=== PATIENT | female | born 1940 | race Caucasian/White ===

== ENCOUNTER → 2017-10-24 | Outpatient (CLI) | payer MEDICARE, BC ==
[~2017-10-24] MED LIST: ASPIRIN81 M1 PO; FOLIC ACID1 MG PO; METHOTREXATE2.5 MG PO; PREDNISONE10 MG PO; TOCILIZUMAB; VITAMIN D-32000 UNIT; Z.0.ALBUTEROL SULF8. IH; Z.0.AMITRIPTYLINE H5 PO; Z.0.DIOVAN160 MG PO; Z.0.MOBIC7.5 MG; Z.0.PREDNISONE10 MG; Z.1.METHOTREXATE2.5; [UNRECOGNIZED DRUG - OTHER]; [UNRECOGNIZED DRUG - OTHER]; [UNRECOGNIZED DRUG - OTHER] PO
--- NOTE | 2017-10-24 08:27 | Diagnostic Imaging Report ---
PROCEDURE: CT CHEST WITHOUT CONTRAST CT scan of the chest WITHOUT intravenous contrast, using standard protocol. TECHNIQUE: The chest was scanned utilizing a multidetector helical scanner from the apex to the level of the adrenal glands. No IV contrast was administered because of referring physician request. Coronal and sagittal multiplanar reformations were obtained. COMPARISON: 11/26/2016, 04/28/2015 INDICATIONS: DISORDERS OF LUNG, LUNG NODULE FINDINGS: Lines/tubes: None. Lungs and Airways: Nodules: 7 mm laterally within the right lower lobe (series 3, image 80), unchanged 4 mm groundglass posterior basal segment right lower lobe (series 3 image 82), unchanged 3 mm juxtapleural left upper lobe (series 3 image 43), unchanged 4-5 mm solid, lateral segment left lower lobe (series 3 image 71), unchanged 5-6 mm solid, posterior right lower lobe (series 3 image 72), unchanged Scattered foci of groundglass opacity in the right lung apex, juxtapleural anterior right upper lobe, and posterior right lower lobe, not significantly changed. Moderate upper lobe predominant centrilobular emphysematous changes unchanged. No new consolidations. Trachea, mainstem bronchi, and the central lobar and segmental bronchi are patent. Pleura: No pleural effusion or pneumothorax. Heart and mediastinum: The visualized portions of the thyroid gland are unremarkable. There is atherosclerotic calcification of the thoracic aorta, coronary arteries, and great vessel origins. The thoracic aorta remains ectatic along the ascending segment, measuring 4.2 cm, unchanged. Pulmonary outflow tract is of normal caliber. The great vessel origins are of normal caliber and configuration. No pericardial effusion. Soft tissues: Loop recorder lies within the subcutaneous fat of the medial left breast. Soft tissues are otherwise unremarkable. Abdomen: Visualized portions of the liver, gallbladder, pancreas, and adrenal glands are unremarkable. Calcified granuloma in the spleen. Bones: No osseous destructive lesions. Multilevel degenerative disc changes and facet arthropathy of the lower cervical and thoracic spine. IMPRESSION: Stable bilateral pulmonary nodules measuring up to 7 mm. An additional followup CT scan of the chest without contrast is suggested in one year, at which point 3 years of stability will be documented (index examination from 04/2015). 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 Dictated by: Diego Parks M.D. on 10/24/2017 at 8:37 Electronically approved by: Diego Parks M.D. on 10/24/2017 at 8:37
== END ==
LOC: CT 07:20
PROVIDERS: ATTEND Internal Medicine Pulmonary Disease
DX: J98.4 Other disorders of lung (principal)
CPT/HCPCS: 71250

== ENCOUNTER → 2018-04-25 | Outpatient (CLI) | payer MEDICARE, BC ==
--- NOTE | 2018-04-25 14:48 | Diagnostic Imaging Report ---
PROCEDURE:X-RAY LUMBAR SPINE, TWO VIEWS COMPARISON:None. INDICATIONS:LOW BACK PAIN FINDINGS: There are five lumbar-type vertebral bodies. There is mild anterolisthesis of L4 on L5. Multilevel moderate degenerative disc and facet degenerative changes, most advanced at L4-L5 and L5-S1. There is bony neural foraminal stenosis, likely mild at L5-S1. Vertebral body heights are maintained. No evidence of fracture or lytic/blastic lesions. Mild degenerative changes at the sacroiliac joints bilaterally. Atherosclerotic calcifications of the abdominal aorta. CONCLUSION: No evidence of fracture. Multilevel moderate degenerative disc and facet degenerative changes, most advanced at L4-L5 and L5-S1. Likely mild bony foraminal narrowing at L5-S1. Dictated by: KAVEH WRAY M.D. on 04/25/2018 at 14:53 Electronically approved by: KAVEH WRAY M.D. on 04/25/2018 at 14:53
--- NOTE | 2018-04-25 14:49 | Diagnostic Imaging Report ---
PROCEDURE:HIP LEFT ONE VIEW (+/- PELVIS) COMPARISON:CT Abdomen/Pelvis 04/16/16 INDICATIONS:BILATERAL HIP PAIN FINDINGS: Mild degenerative changes in the left hip with joint space narrowing and subchondral sclerosis. No evidence of fracture or malalignment. Normal mineralization. Surgical clip projects over the sacrum. CONCLUSION: Mild left hip osteoarthritis. No acute osseous abnormality. Dictated by: KAVEH WRAY M.D. on 04/25/2018 at 14:55 Electronically approved by: KAVEH WRAY M.D. on 04/25/2018 at 14:55
--- NOTE | 2018-04-25 14:52 | Diagnostic Imaging Report ---
PROCEDURE:HIP RIGHT ONE VW (+/- PELVIS) COMPARISON:CT abdomen/pelvis 04/16/16. INDICATIONS:BILATERAL HIP PAIN FINDINGS:There are moderate degenerative changes of the right hip with joint space narrowing and subchondral sclerosis. No evidence of fracture or malalignment. Gluteal enthesopathy noted over the greater trochanter. CONCLUSION: Moderate right hip osteoarthritis. No acute osseous abnormality. Dictated by: KAVEH WRAY M.D. on 04/25/2018 at 14:57 Electronically approved by: KAVEH WRAY M.D. on 04/25/2018 at 14:57
== END ==
LOC: RAD 13:00
DX: M54.5 Low back pain (principal); M25.552 Pain in left hip; M25.551 Pain in right hip
CPT/HCPCS: 72100

== ENCOUNTER → 2018-09-05 | Outpatient (CLI) | payer MEDICARE, BC ==
[~2018-09-05] MED LIST changes: +ATORVASTATIN CA20 MG PO; +CLOPIDOGREL75 MG PO; +IRBESARTAN75 MG PO; +ULTRAM50 MG PO; -Z.0.MOBIC7.5 MG; +Z.0.MOBIC7.5 MG PO
--- NOTE | 2018-09-05 16:41 | Diagnostic Imaging Report ---
EXAM: CT Chest WITH contrast COMPARISON: CT Chest with contrast 10/24/2017. TECHNIQUE: Chest was scanned utilizing a multidetector helical scanner from the lung apex through the level of the adrenal glands without administration of IV contrast. Coronal and sagittal reformations were obtained. Routine protocol was performed. IV CONTRAST: 100 mL of Omnipaque 300 RADIATION DOSE: Total DLP: 227.3 mGy*cm COMPLICATIONS: None FINDINGS: LUNGS AND AIRWAYS: Bilateral solid pulmonary nodules are again noted, unchanged from CT on 10/24/2017. These include a 7 mm right lower lobe solid pulmonary nodule on series 129, image 82, additional 4-5 mm right lower lobe nodules on images 76 and 87, and 4 mm nodule in the left lower lobe on image 81. Biapical pleural parenchymal opacity with slightly nodular appearance at the left lung apex is unchanged. There are increasing tree in bud opacities in the dependent right lower lobe on series 129, image 47. Patchy ground glass opacities in the posterior right lower lobe, right lung apex, and juxta-pleural right upper lobe are again noted. PLEURA: The pleural spaces are clear. HEART AND MEDIASTINUM: Visualized portions of the thyroid gland are unremarkable. There are extensive atherosclerotic calcifications of the thoracic aorta, great vessels, and coronary arteries. Thoracic aorta is ectatic with ascending portion measuring up to 4.2 cm, unchanged. No pericardial effusion. UPPER ABDOMEN: Limited non-contrast views of the upper abdomen show no abnormality within the partially visualized liver, pancreas, adrenals, or kidneys. Splenic granuloma is noted. BONES: No acute bony findings. Degenerative changes of the visualized spine. SOFT TISSUES: Loop recorder lies within the subcutaneous tissues of the medial left breast. IMPRESSION: Stable bilateral pulmonary nodules measuring up to [address] on 04/2015. Given stability for greater than three years, findings are consistent with benign etiology. New tree in bud opacities in the dependent right upper lobe, likely infectious or inflammatory. 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 Signed by: Dr. Cuca Mendoza MD on 09/05/2018 4:37 PM
== END ==
LOC: CT 09:59
PROVIDERS: ATTEND Internal Medicine Pulmonary Disease
DX: J98.4 Other disorders of lung (principal)
CPT/HCPCS: 71250

== ENCOUNTER → 2018-09-08 | Outpatient (CLI) | payer MEDICARE, BC ==
--- NOTE | 2018-09-08 15:18 | Diagnostic Imaging Report ---
TECHNIQUE: CT of the abdomen and pelvis WITHOUT intravenous contrast. The abdomen and pelvis were scanned utilizing a multidetector helical scanner from the diaphragm to the lesser trochanters after the oral administration of Gastrografin contrast. No IV contrast was administered per request. Coronal and sagittal reformats are available. The absence of intravenous contrast limits sensitivity of the exam. HISTORY: Enlarged lymph nodes,. Fevers. COMPARISON: CT abdomen pelvis 04/16/[address] Chest 09/05/2018. FINDINGS: LOWER THORAX: Patchy last opacities in the dependent right lower lobe, unchanged from prior chest CTs. Coronary atherosclerosis. HEPATOBILIARY: No focal hepatic lesions. No biliary ductal dilatation. The gallbladder appears unremarkable. SPLEEN: No splenomegaly. Splenic calcification is present. PANCREAS: Limited evaluation in the absence of contrast. No specific evidence of a focal masses or ductal dilatation. ADRENALS: No discrete adrenal nodule identified. KIDNEYS/URETERS: No hydronephrosis or definite solid mass lesions. Nonspecific mild bilateral perinephric stranding. Punctate 1 mm calcification in the right mid pole kidney on series 85, image 30. PELVIC ORGANS/BLADDER: The visualized pelvic organs appear unremarkable. PERITONEUM / RETROPERITONEUM: No free air or fluid. LYMPH NODES: No pathologically enlarged lymph node identified. VESSELS:There are extensive atherosclerotic vascular calcifications in the abdominal aorta and branch vessels. The common hepatic artery and splenic artery originate from the aorta. GI TRACT: No bowel dilatation or thickening. There are postoperative changes involving the distal sigmoid colon. The cecum is again noted to be low-lying in the pelvis and demonstrates moderate retained stool. Appendix is not visualized. BONES AND SOFT TISSUES: No acute bony abnormality. No suspicious lytic or blastic lesions. Severe facet degenerative changes in the lower lumbar spine. IMPRESSION: No acute findings in the abdomen or pelvis. No evidence of lymphadenopathy. Signed by: Dr. Cuca Mendoza MD on 09/08/2018 3:15 PM
== END ==
LOC: CT 12:54
PROVIDERS: ATTEND Internal Medicine Infectious Disease
DX: R59.9 Enlarged lymph nodes, unspecified (principal); M04.1 Periodic fever syndromes
CPT/HCPCS: 74176

== ENCOUNTER 2018-09-09 12:38 | Inpatient (IN) | payer MEDICARE, BC ==
[~2018-09-09] VITALS: Ht 170.2 cm; Wt 69.9 kg
[~2018-09-09 12:38] MED LIST changes: -ATORVASTATIN CA20 MG PO; -CLOPIDOGREL75 MG PO; -IRBESARTAN75 MG PO; -ULTRAM50 MG PO
--- OUTSIDE RECORDS SUMMARY | 2018-09-09 12:42 | XMS REPORT | Continuity of Care Document ---
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 [facility] STROKE Active 08/23/2017 [facility] STROKE SYMPTOMS Active 08/23/2017 [facility] FOOT AND ANKLE PAIN Active 02/03/2017 [facility] ROUTINE Active 01/25/2017 [facility] M79.652 Active 03/15/2016 [facility] 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 [facility] DEHYDRATION - DR SENT Active 11/04/2015 [facility] Final: Other Screening Mammogram 03/14/2015 03/20/2015 [facility] SCREENING Active 01/31/2015 [facility] SCREENING Active 01/31/2015 [facility] 719.44 Active 04/10/2014 [facility] ROUTINE...PT IS AWARE OF $50.00 FEE Active 02/14/2014 [facility] Arrhythmia<sup>1</sup> Resolved Problem 04/14/2018 misfire in the SA node pt states [facility] CVA (<span ID="[id number]</span>) Active Problem 04/14/2018 [facility] HTN (<span ID="[id number]">Confirmed</span>) Resolved Problem 04/14/2018 [facility] Generalized muscle weakness Active Problem 04/14/2018 [facility] RA (<span ID="[id number]">Confirmed</span>) Resolved Problem 04/14/2018 [facility] [place],[facility] Final: Other cerebrovascular disease 09/04/2017 [facility] Unspecified lump in the left breast, unspecified quadrant 04/03/2018 [facility] Muscle weakness 04/14/2018 [facility] [place] Unspecified abnormalities of gait and mobility 04/14/2018 [facility] [place] Unsteadiness on feet 04/14/2018 [facility] [place] Stiffness of unspecified joint, not elsewhere classified 04/14/2018 [facility] [place] 789.00 Active [facility] ABDMNAL PAIN UNSPCF SITE Active [facility] SCREEN MAMMOGRAM NEC Active [facility] JOINT PAIN-HAND Active [facility] ENCNTR SCREEN MAMMOGRAM FOR MALIGNANT NE Active [facility] ELEVATED ERYTHROCYTE SEDIMENTATION RATE Active [facility] PAIN IN LEFT THIGH Active [facility] CEREBRAL INFARCTION, UNSPECIFIED Active [facility] OTHER CEREBROVASCULAR DISEASE Active [facility] MASTODYNIA Active [facility] CEREBELLAR STROKE SYNDROME Active [facility] [place] MUSCLE WEAKNESS (GENERALIZED) Active [facility] [place] UNSPECIFIED SEQUELAE OF OTHER CEREBROVAS Active [facility] [place] UNSPECIFIED ABNORMALITIES OF GAIT AND MO Active [facility] [place] UNSTEADINESS ON FEET Active [facility] [place] STIFFNESS OF UNSPECIFIED JOINT, NOT ELSE Active [facility] [place] Medications Medication Details Route Status Patient Instructions Ordering Provider Order Date Source Physical Therapy See Instructions, MISC, ONCALL, Evaluate and Treat 2-3 times per week for 4-6 weeks, # 1 ea, 0 Refill(s) Active 09/01/2017 [facility] Occupational Therapy See Instructions, MISC, ONCALL, Evaluate and Treat 2-3 times per week for 2-4 weeks, # 1 unit, 0 Refill(s) Active 09/01/2017 [facility] atorvastatin 80 mg oral tablet 80 mg=1 tab, PO, Bedtime, # 30 tab, 0 Refill(s), Pharmacy: [facility] [place] [facility] Active 09/01/2017 [facility] clopidogrel 75 mg oral tablet 75 mg=1 tab, PO, Daily, # 30 tab, 0 Refill(s), Pharmacy: [facility] [place] [facility] Active 09/01/2017 [facility] Methotrexate 12.5 mg, 5 tab, Route: PO, Drug form: TAB, Q7D, Dosing Weight 69.091, kg, Start date: 08/31/17 10:00:00 [employer], Duration: 30 day, Stop date: 09/28/17 9:00:00 CSTNotes: (Same as:Methotrexate Sodium) Chemoth erapy agent/Handle with caution WASTE: F/P - Black; E - Yellow Inactive 08/31/2017 [facility] Melatonin 3 MG Extended Release Tablet 3 mg, 1 tab, Route: PO, Drug Form: TAB, Dosing Weight 69.091, kg, Bedtime, Start date: 08/27/17 21:00:00 [employer], Duration: 30 day, Stop date: 09/25/17 21:00:00 CSTNotes: (Same as: Melatonin) No Longer Active 08/28/2017 [facility] tramadol hydrochloride 50 MG Oral Tablet 50 mg, 1 tab, Route: PO, Drug form: TAB, Bedtime, Dosing Weight 69.091, kg, PRN Pain Score 4- 6, Start date: 08/27/17 9:29:00 [employer], Duration: 30 day, Stop date: 09/26/17 9:28:00 CSTNotes: Not to exceed 400mg/day. (Same As: Ultram) No Longer Active 08/27/2017 [facility] gabapentin 100 MG Oral Capsule 100 mg, 1 cap, Route: PO, Drug form: CAP, BID, Dosing Weight 69.9, kg, Start date: 08/27/17 9:00:00 [employer], Duration: 30 day, Stop date: 09/25/17 17:00:00 CSTNotes: (Same as: Neurontin) Inactive 08/27/2017 [facility] Aspirin 325 mg, 1 tab, Route: PO, Drug form: TAB, Daily, Dosing Weight 69.9, kg, Start date: 08/27/17 9:00:00 [employer], Duration: 30 day, Stop date: 09/25/17 9:00:00 CSTNotes: Take with food. No Longer Active 08/27/2017 [facility] Folic Acid 1 mg, 1 tab, Route: PO, Drug form: TAB, Daily, Dosing Weight 69.9, kg, Start date: 08/27/17 9:00:00 [employer], Duration: 30 day, Stop date: 09/25/17 9:00:00 CSTNotes: (Same as: Folvite) No Longer Active 08/27/2017 [facility] Docusate 100 mg, 1 cap, Route: PO, Drug form: CAP, BID, Dosing Weight 69.9, kg, Start date: 08/27/17 9:00:00 [employer], Duration: 30 day, Stop date: 09/25/17 17:00:00 CSTNotes: (Same as: Colace) (Do Not Crush) No Longer Active 08/27/2017 [facility] Prednisone 2 mg, 2 tab, Route: PO, Drug form: TAB, Daily, Dosing Weight 69.9, kg, Start date: 08/27/17 9:00:00 [employer], Duration: 30 day, Stop date: 09/25/17 9:00:00 CSTNotes: (Same as: Prednisone.) Take with food. No Longer Active 08/27/2017 [facility] Plavix 75 mg, 1 tab, Route: PO, Drug form: TAB, Daily, Dosing Weight 69.9, kg, Start date: 08/27/17 9:00:00 [employer], Duration: 30 day, Stop date: 09/25/17 9:00:00 CSTNotes: (Same As: Plavix) No Longer Active 08/27/2017 [facility] methotrexate 2.5 mg oral tablet 12.5 mg=5 tab, PO, Q7D, every Tuesday, 0 Refill(s) No Longer Active 08/27/2017 [facility] tramadol hydrochloride 50 MG Oral Tablet 100 mg=2 tab, PO, Bedtime, PRN Pain Score 7-10, 0 Refill(s) No Longer Active 08/27/2017 [facility] heparin 5,000 unit, 1 mL, Route: SUB-Q, Drug form: INJ, Q12H, Dosing Weight 69.9, kg, Start date: 08/26/17 21:22:00 [employer], Duration: 30 day, Stop date: 09/25/17 21:00:00 CSTNotes: porcine heparin No Longer Active 08/27/2017 [facility] valsartan 80 mg, 1 tab, Route: PO, Drug form: TAB, Q12H, Dosing Weight 69.9, kg, Start date: 08/26/17 21:19:00 [employer], Duration: 30 day, Stop date: 09/25/17 21:00:00 CSTNotes: Same as Diovan No Longer Active 08/27/2017 [facility] Amitriptyline 25 mg, 1 tab, Route: PO, Drug form: TAB, Bedtime, Dosing Weight 69.9, kg, Start date: 08/26/17 21:00:00 [employer], Duration: 30 day, Stop date: 09/24/17 21:00:00 CSTNotes: (Same as: Elavil) No Longer Active 08/27/2017 [facility] Ciprofloxacin 500 mg, 1 tab, Route: PO, Drug form: TAB, [id number], Dosing Weight 69.9, kg, Start date: 08/26/17 21:00:00 [employer], Duration: 14 day, Stop date: 09/09/17 12:00:00 [employer], ABX Indication: Other (specify in Com ments)Notes: May interfere w/enteral feedings - Take 1 hr before or 2 hrs after antacids, dairy pdt & minerals. On empty stomach. No Longer Active 08/27/2017 [facility] atorvastatin 80 mg, 2 tab, Route: PO, Drug form: TAB, Bedtime, Dosing Weight 69.9, kg, Start date: 08/26/17 21:00:00 [employer], Duration: 30 day, Stop date: 09/24/17 21:00:00 CSTNotes: (Same as: Lipitor) No Longer Active 08/27/2017 [facility] Flecainide 100 mg, 2 tab, Route: PO, Drug form: TAB, Q12H, Dosing Weight 69.9, kg, Start date: 08/26/17 21:00:00 [employer], Duration: 30 day, Stop date: 09/25/17 9:00:00 CSTNotes: (Same as: Tambocor) No Longer Active 08/27/2017 [facility] Albuterol 0.833 MG/ML / Ipratropium Speed 0.167 MG/ML Inhalant Solution 3 ml, Route: NEB, Drug Form: SOLN, Dosing Weight 69.9, kg, PRN, PRN Respiratory Protocol, Start date: 08/26/17 20:35:00 [employer], Duration: 30 day, Stop date: 09/25/17 20:34:00 CSTNotes: (Same as: Duoneb) No Longer Active 08/27/2017 [facility] Acetaminophen 650 mg, 20.3 mL, Route: PO, Drug form: LIQ, Q6H, Dosing Weight 69.9, kg, PRN Pain 1-3/Temp > 100.4 F, Start date: 08/26/17 20:35:00 [employer], Duration: 30 day, Stop date: 09/25/17 20:34:00 CSTNotes: Max qcdicsyfvtzqp=6910za/day (4 gm/day). (Same as: Tylenol) No Longer Active 08/27/2017 [facility] Trazodone 50 mg, 1 tab, Route: PO, Drug form: TAB, Bedtime, Dosing Weight 69.9, kg, PRN Insomnia, Start date: 08/26/17 18:57:00 [employer], Duration: 30 day, Stop date: 09/25/17 18:56:00 CSTNotes: (Same As: Desyrel) No Longer Active 08/27/2017 [facility] gabapentin 100 MG Oral Capsule 100 mg=1 cap, PO, BID, 0 Refill(s) No Longer Active 08/27/2017 [facility] ciprofloxacin 500 mg oral tablet 500 mg=1 tab, PO, [id number], 0 Refill(s) On Hold 08/27/2017 [facility] clopidogrel 75 mg oral tablet 75 mg=1 tab, PO, Daily, 0 Refill(s) No Longer Active 08/27/2017 [facility] atorvastatin 40 mg oral tablet 80 mg=2 tab, PO, Bedtime, 0 Refill(s) No Longer Active 08/27/2017 [facility] tramadol hydrochloride 50 MG Oral Tablet 50 mg, 1 tab, Route: PO, Drug form: TAB, Q6H, Dosing Weight 69.9, kg, PRN Pain Score 1-3, Start date: 08/26/17 15:56:00 [employer], Duration: 30 day, Stop date: 09/25/17 15:55:00 CSTNotes: Not to exceed 400mg/day. (Same As: Ultram) Inactive 08/26/2017 [facility] Ciprofloxacin 500 mg, 1 tab, Route: PO, Drug form: TAB, [id number], Dosing Weight 69.9, kg, Start date: 08/26/17 12:00:00 [employer], Duration: 3 day, Stop date: 08/29/17 0:00:00 [employer], ABX Indication: Urinary Tract InfectionNot es: May interfere w/enteral feedings - Take 1 hr before or 2 hrs after antacids, dairy pdt & minerals. On empty stomach. Inactive 08/26/2017 [facility] Amitriptyline 25 mg, 1 tab, Route: PO, Drug form: TAB, Bedtime, Dosing Weight 69.9, kg, Start date: 08/25/17 21:00:00 [employer], Duration: 30 day, Stop date: 09/23/17 21:00:00 CSTNotes: (Same as: Elavil) No Longer Active 08/26/2017 [facility] Docusate Sodium 100 MG Oral Capsule [Colace] 100 mg, 1 cap, Route: PO, Drug form: CAP, BID, Dosing Weight 69.9, kg, Start date: 08/25/17 17:00:00 [employer], Duration: 30 day, Stop date: 09/24/17 9:00:00 CSTNotes: (Same as: Colace) (Do Not Crush) No Longer Active 08/25/2017 [facility] Prednisone 2 mg, 2 tab, Route: PO, Drug form: TAB, Daily, Dosing Weight 69.9, kg, Start date: 08/25/17 9:00:00 [employer], Duration: 30 day, Stop date: 09/23/17 9:00:00 CSTNotes: (Same as: Prednisone.) Take with food. No Longer Active 08/25/2017 [facility] Folic Acid 1 mg, 1 tab, Route: PO, Drug form: TAB, Daily, Dosing Weight 69.9, kg, Start date: 08/25/17 9:00:00 [employer], Duration: 30 day, Stop date: 09/23/17 9:00:00 CSTNotes: (Same as: Folvite) No Longer Active 08/25/2017 [facility] Tambocor 100 mg, 2 tab, Route: PO, Drug form: TAB, Q12H, Dosing Weight 69.9, kg, Start date: 08/25/17 9:00:00 [employer], Duration: 30 day, Stop date: 09/23/17 21:00:00 CSTNotes: (Same as: Tambocor) No Longer Active 08/25/2017 [facility] Mannitol 70 gm, 350 mL, Route: IV, Drug form: INJ, ONCE, Dosing Weight 69.9, kg, Start date: 08/24/17 21:55:00 [employer], Stop date: 08/24/17 21:55:00 CSTNotes: (Same as: Osmitrol) Infuse through 5 micron or smaller filter WASTE: F/P - Sink; E - Municipal Trash Bin Inactive 08/25/2017 [facility] Diovan 80 mg, 1 tab, Route: PO, Drug form: TAB, Q12H, Dosing Weight 69.9, kg, Start date: 08/24/17 21:18:00 [employer], Duration: 30 day, Stop date: 09/23/17 21:00:00 CSTNotes: Same as Diovan No Longer Active 08/25/2017 [facility] Aspirin 325 mg, 1 tab, Route: PO, Drug form: TAB, Daily, Dosing Weight 69.9, kg, Start date: 08/24/17 21:11:00 [employer], Duration: 30 day, Stop date: 09/23/17 9:00:00 CSTNotes: Take with food. No Longer Active 08/25/2017 [facility] heparin 5,000 unit, 1 mL, Route: SUB-Q, Drug form: INJ, Q12H, Dosing Weight 69.9, kg, Start date: 08/24/17 21:00:00 [employer], Duration: 30 day, Stop date: 09/23/17 9:00:00 CSTNotes: porcine heparin No Longer Active 08/25/2017 [facility] Acetaminophen 650 mg, 2 tab, Route: PO, Drug form: TAB, Q6H, Dosing Weight 69.9, kg, PRN Pain 1-3/Temp > 100.4 F, Start date: 08/24/17 11:25:00 [employer], Duration: 30 day, Stop date: 09/23/17 11:24:00 CSTNotes: Do not exceed 4 gm/day. (Same as: Tylenol) No Longer Active 08/24/2017 [facility] Neurontin 100 mg, 1 cap, Route: PO, Drug form: CAP, BID, Dosing Weight 69.9, kg, Priority: NOW, Start date: 08/24/17 3:22:00 [employer], Duration: 30 day, Stop date: 09/22/17 17:00:00 CSTNotes: (Same as: Neurontin) No Longer Active 08/24/2017 [facility] Saline Flush 0.9% 10 ml, Route: IVP, Drug Form: INJ, Dosing Weight 71.004, kg, Q12H, Start date: 08/23/17 21:00:00 [employer], Duration: 30 day, Stop date: 09/22/17 20:59:00 CSTNotes: (Same as: BD Posiflush) No Longer Active 08/24/2017 [facility] atorvastatin 80 mg, 2 tab, Route: PO, Drug form: TAB, Bedtime, Dosing Weight 71.004, kg, Start date: 08/23/17 21:00:00 [employer], Duration: 30 day, Stop date: 09/22/17 20:59:00 CSTNotes: (Same as: Lipitor) No Longer Active 08/24/2017 [facility] Albuterol 0.833 MG/ML / Ipratropium Speed 0.167 MG/ML Inhalant Solution 3 ml, Route: NEB, Drug Form: SOLN, Dosing Weight 69.9, kg, PRN, PRN Respiratory Protocol, Start date: 08/23/17 19:08:00 [employer], Duration: 30 day, Stop date: 09/22/17 19:07:00 CSTNotes: (Same as: Duoneb) No Longer Active 08/24/2017 [facility] Saline Flush 0.9% 10 ml, Route: IVP, Drug Form: INJ, Dosing Weight 69.9, kg, PRN, PRN Line Flush, Start date: 08/23/17 18:23:00 [employer], Duration: 30 day, Stop date: 09/22/17 18:22:00 CSTNotes: (Same as: BD Posiflush) No Longer Active 08/24/2017 [facility] Nystatin 100 UNT/MG Topical Powder 1 appl, Route: TOP, PRN, Drug form: PWDR, PRN For Fungal Prophylaxis, Start date: 08/23/17 18:23:00 [employer], Duration: 30 day, Stop date: 09/22/17 18:22:00 CSTNotes: (Same as:Mycostatin, Nilstat) For external use only. No Longer Active 08/24/2017 [facility] Unknown Home Medication 1 puff, INHALATION, Q24H, Refill(s) 0 No Longer Active 08/23/2017 [facility] predniSONE 5 mg oral tablet 5 mg=1 tab, PO, Daily, 0 Refill(s) On Hold 08/23/2017 [facility] Rocephin 1 gm, Route: IV, [id number], Dosing Weight 69.9, kg, Start date: 08/23/17 17:00:00 [employer], Duration: 5 day, Stop date: 08/27/17 17:00:00 [employer], ABX Indication: Urinary Tract InfectionNotes: (Same As: Rocephin). Use with 100 mL NS and infuse over 30 min MEDICATION WASTE Product Size: 1000 mg Product Wasted: ___ mg No Longer Active 08/23/2017 [facility] Morphine 1 mg, 0.5 mL, Route: IV, Drug form: SOLN, Q4H, Dosing Weight 69.9, kg, PRN Pain 4-6/Temp > 100.4 F, Start date: 08/23/17 16:40:00 [employer], Duration: 30 day, Stop date: 09/22/17 16:39:00 [employer] No Longer Active 08/23/2017 [facility] Zofran 4 mg, 2 mL, Route: IVP, Drug form: INJ, Q8H, Dosing Weight 69.9, kg, PRN Nausea, Start date: 08/23/17 16:40:00 [employer], Duration: 30 day, Stop date: 09/22/17 16:39:00 CSTNotes: (Same as: Zofran) MEDICATION WASTE Product Size: 4 mg Product Wasted: ___ mg No Longer Active 08/23/2017 [facility] Anoro Ellipta 62.5 mcg-25 mcg inhalation powder 1 puff, INHALATION, Daily, 0 Refill(s) Inactive 08/23/2017 [facility] {4 (risedronate sodium 35 MG Enteric Coated Tablet) } Pack [Atelvia] 35 mg=1 tab, PO, QWed, 0 Refill(s) No Longer Active 08/23/2017 [facility] Cefixime 400 MG Oral Capsule [Suprax] 400 mg=1 cap, PO, Daily, 0 Refill(s) No Longer Active 08/23/2017 [facility] Prednisone 1 MG Oral Tablet 2 mg=2 tab, PO, Daily, 0 Refill(s) On Hold 08/23/2017 [facility] 200 ACTUAT Albuterol 0.09 MG/ACTUAT Dry Powder Inhaler 2 puff, INHALATION, Q4H, PRN as needed for shortness of breath or wheezing, 0 Refill(s) No Longer Active 08/23/2017 [facility] Albuterol 0.83 MG/ML Inhalant Solution 2.5 mg=3 mL, NEB, Q6H, PRN as needed for wheezing, 0 Refill(s) On Hold 08/23/2017 [facility] Multiple Vitamins oral tablet 1 tab, PO, Daily, 0 Refill(s) On Hold 08/23/2017 [facility] aspirin 81 mg tablet, enteric coated 81 mg=1 tab, PO, Daily, 0 Refill(s) On Hold 08/23/2017 [facility] Vitamin D3 2000 intl units oral tablet 2,000 IntlUnit=1 tab, PO, BID, 0 Refill(s) On Hold 08/23/2017 [facility] amitriptyline 25 mg oral tablet 25 mg=1 tab, PO, Bedtime, 0 Refill(s) On Hold 08/23/2017 [facility] meloxicam 7.5 MG Oral Tablet [Mobic] 7.5 mg=1 tab, PO, QPM, 0 Refill(s) On Hold 08/23/2017 [facility] Orencia 750 mg, IV, q4wk, 0 Refill(s) No Longer Active 08/23/2017 [facility] Zofran 4 mg, Route: IVP, Drug form: INJ, ONCE, Dosing Weight 71.004, kg, Start date: 08/23/17 14:20:00 [employer], Stop date: 08/23/17 14:20:00 [employer] Inactive 08/23/2017 [facility] Aspirin 81 mg, PO, Daily Inactive 08/23/2017 [facility] Orencia Inactive 08/23/2017 [facility] Sodium Chloride 0.9% IV 50 mL 50 mL, Rate: 50 ml/hr, Infuse over: 1 hr, Route: IV, Dosing Weight 71.004 kg, Total Volume: 50, Use to flush line after tPA infusion., Priority: Routine, Start date: 08/23/17 12:44:00 [employer], Duration: 1 doses or times, Stop date: 08/23/17 13:43:00 [employer],... Inactive 08/23/2017 [facility] Morphine 2 mg, Route: IVP, ONCE, Dosing Weight 71.004, kg, Start date: 08/23/17 12:38:00 [employer], Stop date: 08/23/17 12:38:00 [employer] Inactive 08/23/2017 [facility] Labetalol 5 mg, Route: IV, ONCE, Dosing Weight 71.004, kg, Start date: 08/23/17 11:47:00 [employer], Stop date: 08/23/17 11:47:00 [employer] Inactive 08/23/2017 [facility] Saline Flush 0.9% 10 ml, Route: IVP, Drug Form: INJ, Dosing Weight 71.004, kg, PRN, PRN Line Flush, Start date: 08/23/17 11:43:00 [employer], Duration: 30 day, Stop date: 09/22/17 11:42:00 CSTNotes: (Same as: BD Posiflush) No Longer Active 08/23/2017 [facility] enalapril 0.625 mg, 0.5 mL, Route: IVP, Drug form: INJ, Q6H, Dosing Weight 71.004, kg, PRN Hypertension, Start date: 08/23/17 11:43:00 [employer], Duration: 30 day, Stop date: 09/22/17 11:42:00 [employer], For SBP > 180mmHg and/or DBP > 105mmHgNotes: (Same as: Vasotec-IV) No Longer Active 08/23/2017 [facility] Labetalol 10 mg, 2 mL, Route: IVP, Drug form: INJ, Q10Min, Dosing Weight 71.004, kg, PRN Hypertension, For SBP > 180 mmHg and/or DBP > 105 mmHg, Priority: Routine, Start date: 08/23/17 11:43:00 [employer], Duration: 30 day, Stop date: 09/22/17 11:42:00 CSTNotes: (Same as: Normodyne, Trandate) Push over 2 minutes Give bolus over 2-3 minutes. No Longer Active 08/23/2017 [facility] Alteplase 6.3904 mg, Route: IV, ONCE, Dosing Weight 71.004, kg, Start date: 08/23/17 11:37:00 [employer], Stop date: 08/23/17 11:37:00 [employer] Inactive 08/23/2017 [facility] Sodium Chloride 0.9% IV 500 mL 500 mL, Rate: 50 ml/hr, Infuse over: 10 hr, Route: IV, Dosing Weight 71.004 kg, Total Volume: 500, Priority: STAT, Start date: 08/23/17 11:37:00 [employer], Stop date: 09/22/17 11:36:00 [employer], 1.85, m2 No Longer Active 08/23/2017 [facility] Sodium Chloride 0.9% IV 50 mL 50 mL, Rate: 50 ml/hr, Infuse over: 1 hr, Route: IV, Dosing Weight 71.004 kg, Total Volume: 50, Use to flush line after tPA infusion., Priority: Routine, Start date: 08/23/17 11:37:00 [employer], Duration: 30 day, Stop date: 09/22/17 11:36:00 [employer], 1.85, m2 Inactive 08/23/2017 [facility] Saline Flush 0.9% 10 mL, Route: IVP, Drug Form: INJ, Dosing Weight 71.004, kg, PRN, PRN Line Flush, Start date: 08/23/17 10:55:00 [employer], Duration: 30 day, Stop date: 09/22/17 10:54:00 CSTNotes: (Same as: BD Posiflush) Inactive 08/23/2017 [facility] Imodium A-D 2 mg, 1 cap, Route: PO, Drug form: CAP, TID, Dosing Weight 68.182, kg, PRN as needed for loose stool, Start date: 11/04/15 21:16:00, Duration: 30 day, Stop date: 12/04/15 21:15:00Notes: (Same as: Imo dium) MAX adult dose is 8 caps/day No Longer Active 11/05/2015 [facility] 24 HR tramadol hydrochloride 100 MG Extended Release Tablet 100 mg, 2 tab, Route: PO, Drug form: TAB, Q6H, PRN Pain Score 6-10, Start date: 11/04/15 20:44:00, Duration: 30 day, Stop date: 12/04/15 20:43:00Notes: Not to exceed 400mg/day. (Same As: Ultram) No Longer Active 11/05/2015 [facility] Tramadol 100 mg, PO, PRN, PRN Pain, # 20 tab, 0 Refill(s) Active 11/05/2015 [facility] Cimzia 400 mg, SUB-Q, q4wk, 0 Refill(s) Active 11/05/2015 [facility] Folic Acid 2 mg, PO, Daily, 0 Refill(s) Active 11/05/2015 [facility] meloxicam 7.5 MG Oral Tablet [Mobic] 7.5 mg=1 tab, PO, Daily, 0 Refill(s) No Longer Active 11/05/2015 [facility] Methotrexate 2.5 mg, PO, qWeek, 0 Refill(s) Active 11/05/2015 [facility] predniSONE 10 mg oral tablet 10 mg=1 tab, PO, Daily, 0 Refill(s) Active 11/05/2015 [facility] Flecainide Acetate 100 MG Oral Tablet [Tambocor] 100 mg=1 tab, PO, BID, 0 Refill(s) Active 11/05/2015 [facility] valsartan 80 MG Oral Tablet [Diovan] 80 mg=1 tab, PO, BID, 0 Refill(s) Active 11/05/2015 [facility] Tylenol 650 mg, 20.3 mL, Route: PO, Drug form: LIQ, ONCE, Dosing Weight 68.182, kg, Start date: 11/04/15 13:31:00, Stop date: 11/04/15 13:31:00Notes: Max [id number]/day (4 gm/day). (Same as: Tylenol) Inactive 11/04/2015 [facility] Saline Flush 0.9% 10 ml, Route: IVP, Drug Form: INJ, Dosing Weight 68.182, kg, PRN, PRN Line Flush, Start date: 11/04/15 13:22:00, Duration: 30 day, Stop date: 12/04/15 13:21:00Notes: (Same as: BD Posiflush) No Longer Active 11/04/2015 [facility] Sodium Chloride 0.154 MEQ/ML Injectable Solution 1,000 mL, Rate: 70 ml/hr, Infuse over: 14.3 hr, Route: IV, Dosing Weight 68.182 kg, Total Volume: 1,000, Start date: 11/04/15 13:22:00, Stop date: 12/04/15 13:21:00 No Longer Active 11/04/2015 [facility] Ondansetron 4 mg, 2 mL, Route: IVP, Drug form: INJ, Q6H, Dosing Weight 68.182, kg, PRN Nausea & Vomiting, Start date: 11/04/15 13:22:00, Duration: 30 day, Stop date: 12/04/15 13:21:00Notes: (Same as: Sixto) MEDICATION WASTE Product Size: 4 mg Product Wasted: ___ mg No Longer Active 11/04/2015 [facility] Morphine 2 mg, 1 mL, Route: IVP, Drug form: INJ, Q4H, Dosing Weight 68.182, kg, PRN Pain Score 7-10, Start date: 11/04/15 13:22:00, Duration: 30 day, Stop date: 12/04/15 13:21:00Notes: (Same as:MORPhine Sulfate) No Longer Active 11/04/2015 [facility] Acetaminophen 650 mg, 2 tab, Route: PO, Drug form: TAB, Q4H, Dosing Weight 68.182, kg, PRN Pain 1-3/Temp > 100.4 F, Start date: 11/04/15 13:22:00, Duration: 30 day, Stop date: 12/04/15 13:21:00Notes: Do not exceed 4 gm/day. (Same as: Tylenol) No Longer Active 11/04/2015 [facility] Sodium Chloride 0.154 MEQ/ML Injectable Solution 2,000 mL, 1,000 ml/hr, Infuse Over: 1 hr, Route: IV, ONCE, Priority: STAT, Dosing Weight 68.182 kg, Start date: 11/04/15 12:10:00, Duration: 1 doses or times, Stop date: 11/04/15 12:10:00 Inactive 11/04/2015 [facility] Sodium Chloride 0.154 MEQ/ML Injectable Solution 1,000 mL, 1,000 ml/hr, Infuse Over: 1 hr, Route: IV, ONCE, Priority: STAT, Dosing Weight 68.182 kg, Start date: 11/04/15 10:55:00, Duration: 1 doses or times, Stop date: 11/04/15 10:55:00 Inactive 11/04/2015 [facility] Ondansetron 4 mg, Route: IVP, Drug form: INJ, ONCE, Dosing Weight 68.182, kg, Priority: STAT, Start date: 11/04/15 10:55:00, Stop date: 11/04/15 10:55:00 Inactive 11/04/2015 [facility] Allergies, Adverse Reactions, Alerts Substance Category Reaction Severity Reaction type Status Date Reported Comments Source codeine Assertion Drug allergy Active [facility] [place] iodine Assertion Drug allergy Active [facility] [place] Immunizations Immunization Date Given Site Status Last Updated Comments Source Results Order Name Results Value Reference Range Date Interpretation Comments Source Chest 2 views DX Chest 2 views DX EXAM: XR CHEST 2 VIEWS DATE: 08/30/2018 11:20 AM [employer] INDICATION: - J20.8 Acute bronchitis due to other specified organisms COMPARISON: 08/23/2017 TECHNIQUE: PA and lateral chest radiographs FINDINGS: Mild parenchymal scarring is again seen. The lungs are otherwise clear without focal consolidation or pleural effusion. The cardiomediastinal silhouette is normal. There is no acute bony abnormality. IMPRESSION: No acute abnormality 08/30/2018 - - Read by: Sienna Weston Dictated Date/time: 08/30/18 11:41 Electronically Signed by: Sienna Weston 08/30/18 11:42 FINAL REPORT [facility] [place] [facility] MATTHEW w heena incl CAD MS Breast Mammo Scrn MATTHEW w heena incl CAD MA BILATERAL DIGITAL SCREENING MAMMOGRAM 3D/2D WITH CAD: 05/02/2018 CLINICAL: /Routine. Current study was evaluated with a Computer Aided Detection (CAD) system. COMPARISON:Comparison is made to exams dated: 12/26/2017 mammogram, 04/15/2017 mammogram, 03/09/2016 mammogram, 03/07/2015 mammogram, 03/05/2014 mammogram, and 03/02/2013 mammogram - [facility]. TECHNIQUE: Digital Breast Tomosynthesis was performed and utilized for Interpretation. [employer] Version 1.3 was utilized for computer aided detection. FINDINGS: There are scattered fibroglandular densities in both breasts. Benign appearing densities are noted in both breasts. Left cardiac device/pacemaker is unchanged. There are benign calcifications in both breasts. No significant masses, calcifications, or other findings are seen in either breast. There has been no significant interval change. IMPRESSION: BENIGN RECOMMENDATION:There is no mammographic evidence of malignancy. A 1 year screening mammogram is recommended.(05/03/2019) This exam was interpreted at [id number] for [facility]. Maggie hurtado/penrad:05/02/2018 09:03:10 Business Initiatives Manager(s): Kiarra Blackwood, [facility] letter sent: BI-RADS 1/2 Mammogram BI-RADS: 2 Benign 05/02/2018 - - Read by: Maggie Simons MD Dictated Date/time: 05/02/18 09:03 Electronically Signed by: Maggie Simons MD 05/02/18 09:03 FINAL REPORT [facility] Breast Complete Uni US Breast Complete Uni US COMPLETE ULTRASOUND OF LEFT BREAST AND AXILLA: 12/26/2017 CLINICAL: /Lump. COMPARISON:Comparison is made to exams dated: 12/26/2017 mammogram, 04/15/2017 mammogram, 03/09/2016 mammogram, 03/07/2015 mammogram, 03/05/2014 mammogram, and 03/02/2013 mammogram - [facility]. TECHNIQUE: Color flow and real-time ultrasound of the left breast four quadrants and axilla regions were performed. Schumacher scale images of the real-time examination were reviewed. All 4 quadrants, the retroareolar region and axilla are evaluated in this exam. FINDINGS: There is a cardiac device left breast at 9 o'clock that correlates with mammography and palpable abnormality. No abnormalities were seen sonographically in the left axilla. IMPRESSION: BENIGN There is no sonographic evidence of malignancy. Return to annual mammogram screening schedule is recommended.(04/15/2018) The results were reviewed with the patient. This exam was interpreted at [id number] for [facility]. Maggie hurtado/:12/26/2017 16:06:09 Business Initiatives Manager(s): Esther Ayala [facility] letter sent: BI-RADS 1/2 Ultrasound BI-RADS: 2 Benign 12/26/2017 - - Read by: Maggie Simons MD Dictated Date/time: 12/26/17 16:06 Electronically Signed by: Maggie Simons MD 12/26/17 16:06 FINAL REPORT [facility] Breast Mammo Diag UNI incl CAD MA Breast Mammo Diag UNI incl CAD MA UNILATERAL LEFT DIGITAL DIAGNOSTIC MAMMOGRAM WITH CAD: 12/26/2017 CLINICAL: /Left Breast Lump. Current study was evaluated with a Computer Aided Detection (CAD) system. COMPARISON:Comparison is made to exams dated: 04/15/2017 mammogram, 03/09/2016 mammogram, 03/07/2015 mammogram, 03/05/2014 mammogram, 03/02/2013 mammogram, and 02/29/2012 mammogram - [facility]. TECHNIQUE: Mammographic views were obtained using digital acquisition. [employer] Version 1.3 was utilized for computer aided detection. FINDINGS: There are scattered fibroglandular densities in left breast. There are benign appearing calcifications and densities in the left breast. There also is a new pacemaker in the left breast at 9 o'clock that likely correlates with palpable abnormality. No significant masses, calcifications, or other findings are seen in the breast. IMPRESSION: INCOMPLETE: NEEDS ADDITIONAL IMAGING EVALUATION Palpable area of concern in the medial left breast appears to correspond with the new cardiac device. Ultrasound evaluation is pending. The results were reviewed with the patient. SUMMARY: Ultrasound will be performed at this time; please see dedicated separate report. This exam was interpreted at [id number] for [facility]. Maggie Simons M.D. jt/:12/26/2017 16:04:52 Business Initiatives Manager(s): Mary Ann Jeronimo, [facility] Mammogram BI-RADS: 0 Indeterminate 12/26/2017 - - Read by: Maggie Simons MD Dictated Date/time: 12/26/17 16:04 Electronically Signed by: Maggie Simons MD 12/26/17 16:04 FINAL REPORT [facility] CHEM PANEL Phosphorus 2.8 mg/dL 2.5 - 4.5 08/27/2017 [facility] CHEM PANEL Magnesium Lvl 2.1 mg/dL 1.8 - 2.4 08/27/2017 [facility] CHEM PANEL Vitamin D, 25-OH, Total 55.3 ng/mL 30.0 - 100.0 08/27/2017 [facility] ELECTROLYTES AGAP 11.5 meq/L 10.0 - 20.0 08/27/2017 [facility] ELECTROLYTES eGFR 54 mL/min/1.73m2 08/27/2017 Result Comment: The eGFR is calculated using the CKD-EPI formula. In most young, healthy individuals the eGFR will be >90 mL/min/1.73m2. The eGFR declines with age. An eGFR of 60-89 may be normal in some populations, particularly the elderly, for whom the CKD-EPI formula has not been extensively validated. Use of the eGFR is not recommended in the following populations: Individuals with unstable creatinine concentrations, including patients and those with serious co-morbid conditions. Patients with extremes in muscle mass or diet. The data above are obtained from the National Kidney Disease Education Program (NKDEP) which additionally recommends that when the eGFR is used in patients with extremes of body mass index for purposes of drug dosing, the eGFR should be multiplied by the estimated BMI. [facility] ELECTROLYTES Sodium Lvl 139 meq/L 135 - 145 08/27/2017 [facility] ELECTROLYTES Potassium Lvl 3.5 meq/L 3.5 - 5.1 08/27/2017 [facility] ELECTROLYTES CO2 24 meq/L 24 - 32 08/27/2017 [facility] ELECTROLYTES Chloride Lvl 107 meq/L 95 - 109 08/27/2017 [facility] ELECTROLYTES Calcium Lvl 8.8 mg/dL 8.5 - 10.5 08/27/2017 [facility] ELECTROLYTES Creatinine Lvl 1.02 mg/dL 0.50 - 1.40 08/27/2017 [facility] ELECTROLYTES BUN 19 mg/dL 7 - 22 08/27/2017 [facility] ELECTROLYTES Glucose Lvl 92 mg/dL 70 - 99 08/27/2017 [facility] HEMATOLOGY Basophils # 0.1 K/CMM 0.0 - 0.2 08/27/2017 [facility] HEMATOLOGY Eosinophils # 1.3 K/CMM 0.0 - 0.5 08/27/2017 [facility] HEMATOLOGY Monocytes 11.3 % 2.0 - 12.0 08/27/2017 [facility] HEMATOLOGY Eosinophils 9.0 % 0.0 - 4.0 08/27/2017 [facility] HEMATOLOGY Segs-Bands # 8.2 K/CMM 1.5 - 8.1 08/27/2017 [facility] HEMATOLOGY Lymphocytes # 3.6 K/CMM 1.0 - 5.5 08/27/2017 [facility] HEMATOLOGY Monocytes # 1.7 K/CMM 0.0 - 0.8 08/27/2017 [facility] HEMATOLOGY Basophils 0.4 % 0.0 - 1.0 08/27/2017 [facility] HEMATOLOGY Segs 55.2 % 45.0 - 75.0 08/27/2017 [facility] HEMATOLOGY Lymphocytes 24.1 % 20.0 - 40.0 08/27/2017 [facility] HEMATOLOGY PTT 28.7 s 22.9 - 35.8 08/27/2017 [facility] HEMATOLOGY PT 13.4 s 12.0 - 14.7 08/27/2017 [facility] INR 1.02 0.85 - 1.17 08/27/2017 [facility] Platelet 353 K/CMM 133 - 450 08/27/2017 [facility] MPV 7.9 fL 7.4 - 10.4 08/27/2017 [facility] RDW 13.7 % 11.5 - 14.5 08/27/2017 [facility] [place] MCH 31.0 pg 27.0 - 31.0 08/27/2017 [facility] [place] MCHC 33.4 g/dL 32.0 - 36.0 08/27/2017 [facility] [place] Hct 42.4 % 36.0 - 48.0 08/27/2017 [facility] [place] MCV 93.0 fL 80.0 - 98.0 08/27/2017 [facility] [place] RBC 4.56 M/CMM 4.20 - 5.40 08/27/2017 [facility] [place] Hgb 14.2 g/dL 12.0 - 16.0 08/27/2017 [facility] [place] WBC 14.9 K/CMM 3.7 - 10.4 08/27/2017 [facility] Brain Stroke wo contrast CT Brain Stroke wo contrast CT Patient Name: CONY CARDENAS : 1940; Age: 77 years y/o Female MR: [id number] Study: BRAIN STROKE WO CONTRAST CT 08/24/2017 1:55 AM [employer] Ordering Physician: Smitha Marshall MD Clinical Indication: ct dlp: 981.69 mGy-cm - Pt has been previously TPA; Comparison: CT and MR exams of the brain performed yesterday TECHNIQUE: CT images were obtained from the foramen magnum to the vertex without the use of intravenous contrast on a multidetector CT. Coronal and sagittal reconstructions were obtained. CT radiation dose DLP: 981.69 mGy FINDINGS: BRAIN PARENCHYMA: Correlation is made with the CT and MR exams performed within the past 24 hours demonstrating normal evolutionary change of an acute right frontal parietal MCA territory nonhemorrhagic ischemic infarct better seen on the MR and not resulting in apparent hemorrhage following TPA thrombolysis. No complications are identified. There is mild generalized atrophy and otherwise unremarkable MR of the brain. VENTRICLES: CSF spaces are mildly atrophic. The lateral ventricles, third and fourth ventricles appear unremarkable. The basilar cisterns are normal. ORBITS, MASTOIDS AND PARANASAL SINUSES: The visualized orbits are unremarkable. The paranasal sinuses are unremarkable. The mastoid air cells are clear. SKULL: There are no osseous abnormalities. IMPRESSION: Normally evolving acute to subacute nonhemorrhagic ischemic infarct involving distal branches of the right MCA in the right parietal lobe. No complications are seen. Mild atrophy. Verbal Report Provided by telephone to nurse Carey at 3:00 AM SL: [id number] 08/24/2017 - - Read by: Chuck Mccracken MD Dictated Date/time: 08/24/17 02:55 Electronically Signed by: Chuck Mccracken MD 08/24/17 03:05 FINAL REPORT [facility] BACTERIAL - SEROLOGY MRSA by PCR Negative (08/23/17 6:29 PM) 08/24/2017 [facility] LIPIDS VLDL 29 08/23/2017 [facility] LIPIDS LDL (Calculated) 102 mg/dL <=99 mg/dL 08/23/2017 [facility] LIPIDS CHD Risk 2.32 3.90 - 5.80 08/23/2017 [facility] LIPIDS Trig 145 mg/dL <=149 mg/dL 08/23/2017 [facility] LIPIDS HDL 99 mg/dL >=61 mg/dL 08/23/2017 [facility] LIPIDS Chol 230 mg/dL <=199 mg/dL 08/23/2017 [facility] SPECIAL CHEMISTRY Hgb A1C 5.8 % <=5.6 % 08/23/2017 [facility] Brain wo contrast MRA Brain wo contrast MRA MULTIPLE STUDIES HISTORY: - left sided weakness; COMPARISON: CT brain dated 08/23/2017 MRI BRAIN WITHOUT IV CONTRAST TECHNIQUE: Multiplanar noncontrast-enhanced MRI of the brain is performed on a 1.5 Jackelin magnet. Moderate sized area of multifocal acute/subacute cortical infarcts involving the right frontal lobe and to a lesser extent the right temporal and right parietal lobes. The involved area of infarct measures on the order of 4 x 6 cm in axial cross section and 4 cm craniocaudad. Findings compatible with right MCA territory ischemic infarct. No hemorrhage, hydrocephalus, extra-axial fluid collection, or mass lesion is seen. T2 vascular flow voids are preserved. Small mucous retention cyst noted in the left maxillary sinus. MRA BRAIN TECHNIQUE: Magnetic resonance angiography of the [place] was performed without contrast. 3D reconstructed images were created. The petrous, cavernous, and supraclinoid portions of the internal carotid arteries are normal in contour and caliber. The anterior, middle, and posterior cerebral arteries are normal in shape. The basilar artery is intact. There is no stenosis or branch occlusion. No aneurysm is identified. MRA NECK TECHNIQUE: Magnetic resonance angiography of the neck was performed without gadolinium contrast with time of flight technique. 3-D maximum intensity projection images were obtained. Any reported ICA stenoses directly reference the distal internal carotid diameter as the denominator for stenosis measurement. (NASCET criteria) There is normal size and shape of the common carotid arteries. The carotid bifurcations are normal. There is no carotid stenosis. The vertebral arteries are normal. IMPRESSION: 1. Moderate acute/subacute right MCA territory ischemic infarct. No hemorrhage. 2. Normal [place]. No intracranial aneurysm or branch occlusion. 3. Normal carotid bifurcations. SL: JONES-JOVAN 08/23/2017 - - Read by: Johann Dejesus MD Dictated Date/time: 08/23/17 22:30 Electronically Signed by: Johann Dejesus MD 08/23/17 22:39 FINAL REPORT [facility] Brain wo contrast MRI Brain wo contrast MRI MULTIPLE STUDIES HISTORY: - left sided weakness; COMPARISON: CT brain dated 08/23/2017 MRI BRAIN WITHOUT IV CONTRAST TECHNIQUE: Multiplanar noncontrast-enhanced MRI of the brain is performed on a 1.5 [place]elin magnet. Moderate sized area of multifocal acute/subacute cortical infarcts involving the right frontal lobe and to a lesser extent the right temporal and right parietal lobes. The involved area of infarct measures on the order of 4 x 6 cm in axial cross section and 4 cm craniocaudad. Findings compatible with right MCA territory ischemic infarct. No hemorrhage, hydrocephalus, extra-axial fluid collection, or mass lesion is seen. T2 vascular flow voids are preserved. Small mucous retention cyst noted in the left maxillary sinus. MRA BRAIN TECHNIQUE: Magnetic resonance angiography of the [place] was performed without contrast. 3D reconstructed images were created. The petrous, cavernous, and supraclinoid portions of the internal carotid arteries are normal in contour and caliber. The anterior, middle, and posterior cerebral arteries are normal in shape. The basilar artery is intact. There is no stenosis or branch occlusion. No aneurysm is identified. MRA NECK TECHNIQUE: Magnetic resonance angiography of the neck was performed without gadolinium contrast with time of flight technique. 3-D maximum intensity projection images were obtained. Any reported ICA stenoses directly reference the distal internal carotid diameter as the denominator for stenosis measurement. (NASCET criteria) There is normal size and shape of the common carotid arteries. The carotid bifurcations are normal. There is no carotid stenosis. The vertebral arteries are normal. IMPRESSION: 1. Moderate acute/subacute right MCA territory ischemic infarct. No hemorrhage. 2. Normal [place]. No intracranial aneurysm or branch occlusion. 3. Normal carotid bifurcations. SL: ANUJA 08/23/2017 - - Read by: Johann Dejesus MD Dictated Date/time: 08/23/17 22:30 Electronically Signed by: Johann Dejesus MD 08/23/17 22:39 FINAL REPORT [facility] Neck wo contrast MRA Neck wo contrast MRA MULTIPLE STUDIES HISTORY: - left sided weakness; COMPARISON: CT brain dated 08/23/2017 MRI BRAIN WITHOUT IV CONTRAST TECHNIQUE: Multiplanar noncontrast-enhanced MRI of the brain is performed on a 1.5 [place] magnet. Moderate sized area of multifocal acute/subacute cortical infarcts involving the right frontal lobe and to a lesser extent the right temporal and right parietal lobes. The involved area of infarct measures on the order of 4 x 6 cm in axial cross section and 4 cm craniocaudad. Findings compatible with right MCA territory ischemic infarct. No hemorrhage, hydrocephalus, extra-axial fluid collection, or mass lesion is seen. T2 vascular flow voids are preserved. Small mucous retention cyst noted in the left maxillary sinus. MRA BRAIN TECHNIQUE: Magnetic resonance angiography of the [place] was performed without contrast. 3D reconstructed images were created. The petrous, cavernous, and supraclinoid portions of the internal carotid arteries are normal in contour and caliber. The anterior, middle, and posterior cerebral arteries are normal in shape. The basilar artery is intact. There is no stenosis or branch occlusion. No aneurysm is identified. MRA NECK TECHNIQUE: Magnetic resonance angiography of the neck was performed without gadolinium contrast with time of flight technique. 3-D maximum intensity projection images were obtained. Any reported ICA stenoses directly reference the distal internal carotid diameter as the denominator for stenosis measurement. (NASCET criteria) There is normal size and shape of the common carotid arteries. The carotid bifurcations are normal. There is no carotid stenosis. The vertebral arteries are normal. IMPRESSION: 1. Moderate acute/subacute right MCA territory ischemic infarct. No hemorrhage. 2. Normal [place]. No intracranial aneurysm or branch occlusion. 3. Normal carotid bifurcations. SL: ANUJA 08/23/2017 - - Read by: Johann Dejesus MD Dictated Date/time: 08/23/17 22:30 Electronically Signed by: Johann Dejesus MD 08/23/17 22:39 FINAL REPORT [facility] BLOOD BANK RESULTS Antibody Scrn Negative (08/23/17 10:59 AM) 08/23/2017 [facility] BLOOD BANK RESULTS ABO/Rh A POS 08/23/2017 [facility] URINE AND STOOL UA Urobilinogen <=1.0 mg/dL 0.1 - 1.0 08/23/2017 [facility] URINE AND STOOL UA Nitrite Positive *ABN* (08/23/17 10:59 AM) Negative 08/23/2017 [facility] URINE AND STOOL UA Blood Small *ABN* (08/23/17 10:59 AM) Negative 08/23/2017 [facility] URINE AND STOOL UA WBC 13 /HPF 0 - 5 08/23/2017 [facility] URINE AND STOOL UA Sq Epi Occasional /LPF Few /LPF 08/23/2017 [facility] URINE AND STOOL UA Leuk Est Moderate *ABN* (08/23/17 10:59 AM) Negative 08/23/2017 [facility] URINE AND STOOL UA Bacteria Occasional /HPF None Seen /HPF 08/23/2017 [facility] URINE AND STOOL UA RBC 5 /HPF 0 - 2 08/23/2017 [facility] URINE AND STOOL UA Spec Grav 1.016 <=1.030 08/23/2017 [facility] URINE AND STOOL UA Turbidity Clear (08/23/17 10:59 AM) Clear 08/23/2017 [facility] URINE AND STOOL UA Color Yellow *NA* (08/23/17 10:59 AM) Yellow 08/23/2017 [facility] URINE AND STOOL UA pH 6.0 5.0 - 8.0 08/23/2017 [facility] URINE AND STOOL UA Bili Negative *NA* (08/23/17 10:59 AM) Negative 08/23/2017 [facility] URINE AND STOOL UA Ketones Negative mg/dL Negative mg/dL 08/23/2017 [facility] URINE AND STOOL UA Glucose Negative mg/dL Negative mg/dL 08/23/2017 [facility] URINE AND STOOL UA Protein Negative mg/dL Negative mg/dL 08/23/2017 [facility] CARDIAC ENZYMES CK MB Index 2.5 0.0 - 2.5 08/23/2017 [facility] CARDIAC ENZYMES Troponin-I null 0.00 - 0.40 08/23/2017 [facility] CARDIAC ENZYMES Total CK 122 unit/L 12 - 191 08/23/2017 [facility] CARDIAC ENZYMES CK MB 3.1 ng/mL 0.5 - 3.6 08/23/2017 [facility] CHEM PANEL eGFR 39 mL/min/1.73m2 08/23/2017 Result Comment: The eGFR is calculated using the CKD-EPI formula. In most young, healthy individuals the eGFR will be >90 mL/min/1.73m2. The eGFR declines with age. An eGFR of 60-89 may be normal in some populations, particularly the elderly, for whom the CKD-EPI formula has not been extensively validated. Use of the eGFR is not recommended in the following populations: Individuals with unstable creatinine concentrations, including patients and those with serious co-morbid conditions. Patients with extremes in muscle mass or diet. The data above are obtained from the National Kidney Disease Education Program (NKDEP) which additionally recommends that when the eGFR is used in patients with extremes of body mass index for purposes of drug dosing, the eGFR should be multiplied by the estimated BMI. [facility] CHEM PANEL B/C Ratio 12 6 - 25 08/23/2017 [facility] CHEM PANEL Globulin 3.5 g/dL 2.7 - 4.2 08/23/2017 [facility] CHEM PANEL AGAP 14.1 meq/L 10.0 - 20.0 08/23/2017 [facility] CHEM PANEL Bili Total 0.5 mg/dL 0.2 - 1.3 08/23/2017 [facility] CHEM PANEL Alk Phos 70 unit/L 39 - 136 08/23/2017 [facility] CHEM PANEL A/G Ratio 1.2 0.7 - 1.6 08/23/2017 [facility] CHEM PANEL Creatinine Lvl 1.32 mg/dL 0.50 - 1.40 08/23/2017 [facility] CHEM PANEL BUN 16 mg/dL 7 - 22 08/23/2017 [facility] CHEM PANEL Glucose Lvl 115 mg/dL 70 - 99 08/23/2017 [facility] CHEM PANEL Calcium Lvl 9.4 mg/dL 8.5 - 10.5 08/23/2017 [facility] CHEM PANEL CO2 26 meq/L 24 - 32 08/23/2017 [facility] CHEM PANEL Albumin Lvl 4.1 g/dL 3.5 - 5.0 08/23/2017 [facility] CHEM PANEL Total Protein 7.6 g/dL 6.4 - 8.4 08/23/2017 [facility] CHEM PANEL Chloride Lvl 104 meq/L 95 - 109 08/23/2017 [facility] CHEM PANEL Potassium Lvl 4.1 meq/L 3.5 - 5.1 08/23/2017 [facility] CHEM PANEL Sodium Lvl 140 meq/L 135 - 145 08/23/2017 [facility] CHEM PANEL ALT 18 unit/L 0 - 65 08/23/2017 [facility] CHEM PANEL AST 18 unit/L 0 - 37 08/23/2017 [facility] HEMATOLOGY Basophils # 0.1 K/CMM 0.0 - 0.2 08/23/2017 [facility] HEMATOLOGY Basophils 0.4 % 0.0 - 1.0 08/23/2017 [facility] HEMATOLOGY Eosinophils 1.6 % 0.0 - 4.0 08/23/2017 [facility] HEMATOLOGY Eosinophils # 0.2 K/CMM 0.0 - 0.5 08/23/2017 [facility] HEMATOLOGY Monocytes # 0.7 K/CMM 0.0 - 0.8 08/23/2017 [facility] HEMATOLOGY Lymphocytes # 2.0 K/CMM 1.0 - 5.5 08/23/2017 [facility] HEMATOLOGY Segs-Bands # 10.2 K/CMM 1.5 - 8.1 08/23/2017 [facility] HEMATOLOGY Lymphocytes 15.2 % 20.0 - 40.0 08/23/2017 [facility] HEMATOLOGY Monocytes 5.4 % 2.0 - 12.0 08/23/2017 [facility] HEMATOLOGY Segs 77.4 % 45.0 - 75.0 08/23/2017 [facility] HEMATOLOGY Platelet 441 K/CMM 133 - 450 08/23/2017 [facility] HEMATOLOGY RDW 13.8 % 11.5 - 14.5 08/23/2017 [facility] HEMATOLOGY MCHC 33.1 g/dL 32.0 - 36.0 08/23/2017 [facility] HEMATOLOGY MPV 7.3 fL 7.4 - 10.4 08/23/2017 [facility] MCH 31.0 pg 27.0 - 31.0 08/23/2017 [facility] HEMATOLOGY MCV 93.7 fL 80.0 - 98.0 08/23/2017 [facility] HEMATOLOGY Hgb 15.5 g/dL 12.0 - 16.0 08/23/2017 [facility] HEMATOLOGY WBC 13.2 K/CMM 3.7 - 10.4 08/23/2017 [facility] HEMATOLOGY Hct 46.8 % 36.0 - 48.0 08/23/2017 [facility] [place] RBC 4.99 M/CMM 4.20 - 5.40 08/23/2017 [facility] HEMATOLOGY PTT 25.6 s 22.9 - 35.8 08/23/2017 [facility] HEMATOLOGY INR 1.02 0.85 - 1.17 08/23/2017 [facility] HEMATOLOGY PT 13.4 s 12.0 - 14.7 08/23/2017 [facility] Chest 1view DX Chest 1view DX Patient Name: CONY CARDENAS : 1940; Age: 77 years y/o Female MR: [id number] Study: Chest 1view DX 08/23/2017 10:55 AM [employer] Ordering Physician: Clinical Indication: - stroke; Comparison: 11/04/2015 1 view chest Lungs are clear. Heart size normal. No evidence for congestive heart failure or pulmonary edema. No pleural effusion or pneumothorax. Chronic degenerative changes within the cervical spine. IMPRESSION: No acute finding. SL: [id number] 08/23/2017 - - Read by: Jose Baxter MD Dictated Date/time: 08/23/17 11:20 Electronically Signed by: Jose Baxter MD 08/23/17 11:20 FINAL REPORT [facility] Brain Stroke wo contrast CT Brain Stroke wo contrast CT Patient Name: CONY CARDENAS : 1940; Age: 77 years y/o Female MR: [id number] Study: Brain Stroke wo contrast CT 08/23/2017 10:55 AM [employer] Clinical Indication: dlp: 1472.28; CJ - Stroke; @1000 began to have HUNT and Dizziness, paralysis to left side, slurred speech and left side facial droop. Hx RA and HTN. BS 108 on scene. AAox4 @ this time. took 1 baby aspirin today; Comparison: MRI brain dated 10/11/2006. TECHNIQUE: CT images were obtained from the foramen magnum to the vertex without the use of intravenous contrast on a multidetector CT. Coronal and sagittal reconstructions were obtained. FINDINGS: BRAIN PARENCHYMA: Left vertebral and bilateral carotid artery calcification. There are normal schumacher-white interfaces. No evidence for subarachnoid, intraparenchymal or intraventricular hemorrhage. No significant extra-axial fluid collection, mass effect or shift. No evidence for an acute infarction. No mass lesions identified about the brain. VENTRICLES: The ventricles and sulci are enlarged for the patient's age but not out of proportion to each other. Findings are consistent with changes of mild cerebral atrophy. ORBITS, MASTOIDS AND PARANASAL SINUSES: Small mucous retention cyst versus polyp posterior left maxillary sinus. SKULL: There are no osseous abnormalities. If there is further concern for intracranial pathology or acute stroke, MRI of the brain may be performed for complete assessment. IMPRESSION: 1. Intracranial vascular calcification as above. 2. Mild cerebral atrophy. 3. Small mucous retention cyst versus polyp posterior left maxillary sinus. 4. Findings reviewed with Dr. Viera on 08/23/2017 at 1124 hours. SL: [id number] 08/23/2017 - - Read by: Ravinder Conde MD Dictated Date/time: 08/23/17 11:17 Electronically Signed by: Ravinder Conde MD 08/23/17 11:26 FINAL REPORT [facility] Breast Mammo Scrn MATTHEW w heena incl CAD MS Breast Mammo Scrn MATTHEW w heena incl CAD MA - BREAST MAMMO SCRN MATTHEW W HEENA INCL CAD MA BILATERAL DIGITAL SCREENING MAMMOGRAM 3D/2D WITH CAD: 04/15/2017 CLINICAL: Routine/Screen. 2D digital mammographic images and 3D digital tomosynthesis images were obtained in the CC and MLO projections. Current study was evaluated with a Computer Aided Detection (CAD) system. Comparison is made to exams dated: 03/09/2016 mammogram, 03/07/2015 mammogram, 03/05/2014 mammogram, 03/02/2013 mammogram, 02/29/2012 mammogram and 02/16/2011 mammogram - [facility]. There are scattered fibroglandular densities in both breasts. There are benign appearing calcifications in both breasts. There also are benign appearing densities in both breasts. No significant masses, calcifications, or other findings are seen in either breast. There has been no significant interval change. IMPRESSION: BENIGN There is no mammographic evidence of malignancy. A 1 year screening mammogram is recommended. Maggie hurtado/penrad:04/15/2017 14:45:37 Business Initiatives Manager: Stephie Fonseca, [facility] This exam was dictated and interpreted by [id number] for [facility]. letter sent: Normal exam Mammogram BI-RADS: 2 Benign 04/15/2017 - - Read by: Maggie Simons MD Dictated Date/time: 04/15/17 14:45 Electronically Signed by: Maggie Simons MD 04/15/17 14:45 FINAL REPORT [facility] Ankle 3 views DX Ankle 3 views DX Ankle 3 views DX CLINICAL HISTORY: M85.80 Other specified disorders of bone density and structure, unspecified site,M79.7 Fibromyalgia,R70.0 Elevated erythrocyte sedimentation rate FINDINGS/IMPRESSION: 3 views of the left ankle are submitted for review. Small well-corticated calcific density is noted along the inferior margin of medial malleolus. Findings may reflect changes from previous trauma or accessory ossicle. No acute bony fractures are visualized. There is mild soft tissue swelling medially and laterally. No radiopaque foreign body is visualized. Joint spaces are well maintained without any significant degenerative change. Mild generalized osteopenia. SL: [id number] 02/03/2017 - - Read by: Serge Chavez MD Dictated Date/time: 02/03/17 16:44 Electronically Signed by: Serge Chavez MD 02/03/17 16:45 FINAL REPORT [facility] Foot series DX Foot series DX Foot series DX CLINICAL HISTORY: M79.7 Fibromyalgia, R70.0 Elevated erythrocyte sedimentation rate,Z79.52 snf (current) use of systemic steroids FINDINGS/IMPRESSION: 3 views of the left foot are submitted for review. There is no evidence for fracture or subluxation. Mild dorsal soft tissue swelling. No radiopaque foreign body is visualized. Mild generalized osteopenia. SL: [id number] 02/03/2017 - - Read by: Serge Chavez MD Dictated Date/time: 02/03/17 16:46 Electronically Signed by: Serge Chavez MD 02/03/17 16:47 FINAL REPORT [facility] Ext Lower Venous Doppler Unilat US Ext Lower Venous Doppler Unilat US Clinical Indication: M79.652 Pain in left thigh; Comparison: None Left lower extremity venous Doppler ultrasound exam demonstrates normal flow and compressibility of the common femoral, superficial femoral and tibial venous segments. Normal distal augmentation. IMPRESSION: No evidence for deep vein thrombosis in the left lower extremity. SL: [id number] 03/17/2016 - - Read by: Jose Baxter MD Dictated Date/time: 03/17/16 16:29 Electronically Signed by: Jose Baxter MD 03/17/16 16:29 FINAL REPORT [facility] Femur series DX Femur series DX Femur series DX CLINICAL HISTORY: M79.652 Pain in left thigh FINDINGS/IMPRESSION: AP and lateral views of the left femur reveal no evidence for fracture or dislocation. Visualized bones demonstrate normal radiodensity. No significant degenerative change is present. Surrounding soft tissues are unremarkable. SL: [id number] 03/17/2016 - - Read by: Jose Baxter MD Dictated Date/time: 03/17/16 16:08 Electronically Signed by: Jose Baxter MD 03/17/16 16:08 FINAL REPORT [facility] Hip 2/3 views uni DX Hip 2/3 views uni DX Hip 2/3 views uni DX CLINICAL HISTORY: M79.652 Pain in left thigh FINDINGS/IMPRESSION: AP and oblique views of the left hip reveal no evidence for fracture or dislocation. Visualized bones demonstrate normal radiodensity. No significant degenerative change is present. Surrounding soft tissues are unremarkable. SL: [id number] 03/17/2016 - - Read by: Jose Baxter MD Dictated Date/time: 03/17/16 16:08 Electronically Signed by: Jose Baxter MD 03/17/16 16:08 FINAL REPORT [facility] Digital Mammo Screen Matthew MA w heena Digital Mammo Screen Matthew MA w heena - DIGITAL MAMMO SCREEN MATTHEW MA W HEENA BILATERAL DIGITAL SCREENING MAMMOGRAM 3D/2D WITH CAD: 03/09/2016 CLINICAL: Screen. 2D digital mammographic images and 3D digital tomosynthesis images were obtained in the CC and MLO projections. Current study was evaluated with a Computer Aided Detection (CAD) system. Comparison is made to exams dated: 03/07/2015 mammogram, 03/05/2014 mammogram, 03/02/2013 mammogram, 02/29/2012 mammogram, 02/16/2011 mammogram and 02/06/2010 mammogram - [facility]. There are scattered fibroglandular densities in both breasts. There are benign appearing calcifications in both breasts. There also are benign appearing densities in both breasts. No significant masses, calcifications, or other findings are seen in either breast. There has been no significant interval change. IMPRESSION: BENIGN There is no mammographic evidence of malignancy. A 1 year screening mammogram is recommended. Maggie hurtado/penrad:04/01/2016 16:02:06 Business Initiatives Manager: Mary Ann Jeronimo, [facility] This exam was dictated and interpreted by [id number] for [facility]. letter sent: Normal exam Mammogram BI-RADS: 2 Benign 03/09/2016 - - Read by: Maggie Simons MD Dictated Date/time: 04/01/16 16:02 Electronically Signed by: Maggie Simons MD 04/01/16 16:02 FINAL REPORT [facility] eGFR 65 mL/min/1.73m2 11/05/2015 Result Comment: The eGFR is calculated using the CKD-EPI formula. In most young, healthy individuals the eGFR will be >90 mL/min/1.73m2. The eGFR declines with age. An eGFR of 60-89 may be normal in some populations, particularly the elderly, for whom the CKD-EPI formula has not been extensively validated. Use of the eGFR is not recommended in the following populations: Individuals with unstable creatinine concentrations, including patients and those with serious co-morbid conditions. Patients with extremes in muscle mass or diet. The data above are obtained from the National Kidney Disease Education Program (NKDEP) which additionally recommends that when the eGFR is used in patients with extremes of body mass index for purposes of drug dosing, the eGFR should be multiplied by the estimated BMI. [facility] CHEM PANEL Creatinine Lvl 0.89 mg/dL 0.50 - 1.40 11/05/2015 [facility] CHEM PANEL Potassium Lvl 4.1 meq/L 3.5 - 5.1 11/05/2015 [facility] CHEM PANEL Glucose Lvl 74 mg/dL 70 - 99 11/05/2015 [facility] CHEM PANEL Sodium Lvl 139 meq/L 135 - 145 11/05/2015 [facility] CHEM PANEL BUN 16 mg/dL 7 - 22 11/05/2015 [facility] CHEM PANEL CO2 23 meq/L 24 - 32 11/05/2015 [facility] CHEM PANEL AGAP 11.1 meq/L 10.0 - 20.0 11/05/2015 [facility] CHEM PANEL Calcium Lvl 7.5 mg/dL 8.5 - 10.5 11/05/2015 [facility] CHEM PANEL Chloride Lvl 109 meq/L 95 - 109 11/05/2015 [facility] HEMATOLOGY MPV 7.5 fL 7.4 - 10.4 11/05/2015 [facility] HEMATOLOGY RDW 12.9 % 11.5 - 14.5 11/05/2015 [facility] HEMATOLOGY Platelet 270 K/CMM 133 - 450 11/05/2015 [facility] HEMATOLOGY MCHC 33.5 g/dL 32.0 - 36.0 11/05/2015 [facility] HEMATOLOGY Hgb 12.6 g/dL 12.0 - 16.0 11/05/2015 [facility] [place] MCH 31.7 pg 27.0 - 31.0 11/05/2015 [facility] HEMATOLOGY Hct 37.5 % 36.0 - 48.0 11/05/2015 [facility] [place] MCV 94.7 fL 80.0 - 98.0 11/05/2015 [facility] HEMATOLOGY WBC 10.7 K/CMM 3.7 - 10.4 11/05/2015 [facility] HEMATOLOGY RBC 3.96 M/CMM 4.20 - 5.40 11/05/2015 [facility] HEMATOLOGY Monocytes # 1.5 K/CMM 0.0 - 0.8 11/05/2015 [facility] HEMATOLOGY Lymphocytes # 2.9 K/CMM 1.0 - 5.5 11/05/2015 [facility] HEMATOLOGY Segs-Bands # 5.5 K/CMM 1.5 - 8.1 11/05/2015 [facility] HEMATOLOGY Eosinophils # 0.7 K/CMM 0.0 - 0.5 11/05/2015 [facility] HEMATOLOGY Eosinophils 6.8 % 0.0 - 4.0 11/05/2015 [facility] HEMATOLOGY Basophils 0.5 % 0.0 - 1.0 11/05/2015 [facility] HEMATOLOGY Lymphocytes 27.2 % 20.0 - 40.0 11/05/2015 [facility] HEMATOLOGY Monocytes 14.1 % 2.0 - 12.0 11/05/2015 [facility] HEMATOLOGY Segs 51.4 % 45.0 - 75.0 11/05/2015 [facility] IMMUNOLOGY C-REACTIVE PROTEIN 83.6 mg/L <=2.9 mg/L 11/05/2015 [facility] CARDIAC ENZYMES Total CK 969 unit/L 12 - 191 11/05/2015 [facility] Abdomen/Pelvis wo IV contrast CT Abdomen/Pelvis wo IV contrast CT I. CT SCAN of the ABDOMEN without contrast II. CT SCAN of the PELVIS without contrast HISTORY: Vomiting, diarrhea, concern for bowel obstruction. I. CT SCAN of the ABDOMEN without contrast Technique: Helical CT images were obtained from the domes of the diaphragms. Neither oral or intravenous contrast was administered. II. CT SCAN of the PELVIS without contrast Technique: Helical CT images were obtained from the iliac crests to the pubic symphysis. Neither oral or intravenous contrast was administered. Sagittal and coronal reconstructions were provided. FINDINGS: There is no free intraperitoneal gas, abscess, focal inflammation, or other evidence of an acute intra-abdominal process. There is a relatively large amount of fluid like stool within the cecum and right colon. This could be related to enteritis. There is a moderate amount of fecal material in the transverse colon (constipation). There is no evidence of bowel obstruction or significant ileus. Note is made of postoperative changes in the with sigmoid colon. A row gastrointestinal sutures is noted. The liver, spleen, pancreas, and adrenals are normal in appearance. The kidneys are normal in size without hydronephrosis. No renal calculi are seen. Evaluation of the solid organs is limited due to lack of intravenous contrast. The gastrointestinal structures are unremarkable. There is no evidence of obstruction or ileus. Evaluation the gastrointestinal structures is limited due to lack of oral contrast. There no masses, fluid collections, or other focal abnormalities within the abdomen. There extensive atherosclerotic change about the abdominal aorta and iliac arteries. There is no aneurysm. Note is made of a retroaortic left renal vein, a normal variant. The uterus is not visualized. Presumably, the patient has had a prior hysterectomy. There are 2 small right lower lobe pulmonary nodules. There is a 7 mm nodule laterally in the periphery the right lower lobe and a 3 mm nodule posteriorly in the right lower lobe. The small nodules are not visualized on the most recent chest radiographs of from today and 04/17/2015. There is minimal scarring or atelectasis in the right lung base. There are no pleural effusions. The heart is normal in size. There is no pericardial effusion. Coronary artery calcifications are noted. It is indicated the patient has back pain. There is a mild compression deformity involving the left side of the superior endplate of L2. There is a mild compression or depression deformity involving the inferior endplate of L1. These are of indeterminate age. Please correlate with any prior imaging study of the lumbar spine if available. If these are felt to be acute and if not clinically contraindicated, MRI would be helpful for further evaluation. No other compression deformities are seen. There is relatively mild degenerative disc disease in the lumbar spine. There is severe degenerative facet disease on the left at L5-S1 and severe degenerative facet disease bilaterally at L4-L5. There are are mild degenerative facet changes at L3-L4. CONCLUSION: 1. No evidence of an acute intra-abdominal process. 2. Relatively large amount of liquid stool in the cecum and right colon. This could be related to enteritis. There is also mild constipation. 3. Postoperative changes in the region of the sigmoid colon. Please correlate with surgical history. 4. Atherosclerosis including coronary artery calcifications. 5. Two small right lower lobe pulmonary nodules which are nonspecific. Comparison with any prior CT studies would be helpful. If these are not available, perhaps, a follow-up study in 6-9 months would be helpful to insure stability. 6. Mild compression deformities involving the left side of the superior endplate of L2 an involving the inferior endplate of L1. These are of indeterminate age. Please see discussion above. 7. Degenerative facet disease in the lower lumbosacral region. There is relatively mild degenerative disc disease in the lumbar spine. Coding: Abdomen/pelvis w/o contrast CT SL: 13 Stephan Leroy M.D. 11/04/2015 - - Read by: Stephan Leroy MD Dictated Date/time: 11/04/15 14:42 Electronically Signed by: Stephan Leroy MD 11/04/15 15:09 FINAL REPORT [facility] CARDIAC ENZYMES Total CK 640 unit/L 12 - 191 11/04/2015 [facility] IMMUNOLOGY C-REACTIVE PROTEIN 121.0 mg/L <=2.9 mg/L 11/04/2015 [facility] URINE AND STOOL UA Urobilinogen <=1.0 mg/dL 0.1 - 1.0 11/04/2015 [facility] URINE AND STOOL UA Hyal Cast 33 /LPF 0 - 2 11/04/2015 [facility] URINE AND STOOL UA Mucus Few /LPF None Seen /LPF 11/04/2015 [facility] URINE AND STOOL UA RBC 5 /HPF 0 - 2 11/04/2015 [facility] URINE AND STOOL UA Blood Moderate *ABN* (11/04/15 12:48 PM) Negative 11/04/2015 [facility] URINE AND STOOL UA Sq Epi Occasional /LPF Few /LPF 11/04/2015 [facility] URINE AND STOOL UA WBC 4 /HPF 0 - 5 11/04/2015 [facility] URINE AND STOOL UA Nitrite Negative (11/04/15 12:48 PM) Negative 11/04/2015 [facility] URINE AND STOOL UA Leuk Est Negative (11/04/15 12:48 PM) Negative 11/04/2015 [facility] URINE AND STOOL UA pH 5.0 5.0 - 8.0 11/04/2015 [facility] URINE AND STOOL UA Spec Grav 1.013 <=1.030 11/04/2015 [facility] URINE AND STOOL UA Protein 30 mg/dL Negative mg/dL 11/04/2015 [facility] URINE AND STOOL UA Color Yellow *NA* (11/04/15 12:48 PM) Yellow 11/04/2015 [facility] URINE AND STOOL UA Turbidity Slight *ABN* (11/04/15 12:48 PM) Clear 11/04/2015 [facility] URINE AND STOOL UA Ketones Trace mg/dL Negative mg/dL 11/04/2015 [facility] URINE AND STOOL UA Bili Negative *NA* (11/04/15 12:48 PM) Negative 11/04/2015 [facility] URINE AND STOOL UA Glucose Negative mg/dL Negative mg/dL 11/04/2015 [facility] URINE CHEM U Sodium 25 meq/L 11/04/2015 [facility] CARDIAC ENZYMES Troponin-I null 0.00 - 0.40 11/04/2015 [facility] CARDIAC ENZYMES CK MB 8.2 ng/mL 0.5 - 3.6 11/04/2015 [facility] CARDIAC ENZYMES Total CK 699 unit/L 12 - 191 11/04/2015 [facility] CARDIAC ENZYMES CK MB Index 1.2 0.0 - 2.5 11/04/2015 [facility] CHEM PANEL Lactic Acid Lvl 1.8 mMol/L 0.5 - 2.2 11/04/2015 [facility] CHEM PANEL eGFR 34 mL/min/1.73m2 11/04/2015 Result Comment: The eGFR is calculated using the CKD-EPI formula. In most young, healthy individuals the eGFR will be >90 mL/min/1.73m2. The eGFR declines with age. An eGFR of 60-89 may be normal in some populations, particularly the elderly, for whom the CKD-EPI formula has not been extensively validated. Use of the eGFR is not recommended in the following populations: Individuals with unstable creatinine concentrations, including patients and those with serious co-morbid conditions. Patients with extremes in muscle mass or diet. The data above are obtained from the National Kidney Disease Education Program (NKDEP) which additionally recommends that when the eGFR is used in patients with extremes of body mass index for purposes of drug dosing, the eGFR should be multiplied by the estimated BMI. [facility] CHEM PANEL Globulin 4.0 g/dL 2.0 - 4.0 11/04/2015 [facility] CHEM PANEL A/G Ratio 0.9 0.7 - 1.6 11/04/2015 [facility] CHEM PANEL B/C Ratio 16 6 - 25 11/04/2015 [facility] CHEM PANEL Alk Phos 59 unit/L 39 - 136 11/04/2015 [facility] CHEM PANEL Bili Total 0.6 mg/dL 0.2 - 1.3 11/04/2015 [facility] CHEM PANEL AGAP 9.7 meq/L 10.0 - 20.0 11/04/2015 [facility] CHEM PANEL Chloride Lvl 99 meq/L 95 - 109 11/04/2015 [facility] CHEM PANEL Sodium Lvl 133 meq/L 135 - 145 11/04/2015 [facility] CHEM PANEL Potassium Lvl 3.7 meq/L 3.5 - 5.1 11/04/2015 [facility] CHEM PANEL Albumin Lvl 3.6 g/dL 3.5 - 5.0 11/04/2015 [facility] CHEM PANEL CO2 28 meq/L 24 - 32 11/04/2015 [facility] CHEM PANEL Total Protein 7.6 g/dL 6.4 - 8.4 11/04/2015 [facility] CHEM PANEL Calcium Lvl 8.6 mg/dL 8.5 - 10.5 11/04/2015 [facility] CHEM PANEL AST 38 unit/L 0 - 37 11/04/2015 [facility] CHEM PANEL ALT 33 unit/L 0 - 65 11/04/2015 [facility] CHEM PANEL BUN 25 mg/dL 7 - 22 11/04/2015 [facility] CHEM PANEL Glucose Lvl 104 mg/dL 70 - 99 11/04/2015 [facility] CHEM PANEL Creatinine Lvl 1.52 mg/dL 0.50 - 1.40 11/04/2015 [facility] HEMATOLOGY PTT 34.5 s 22.9 - 35.8 11/04/2015 [facility] [place] INR 1.18 0.85 - 1.17 11/04/2015 [facility] [place] PT 15.3 s 12.0 - 14.7 11/04/2015 [facility] [place] MCH 31.1 pg 27.0 - 31.0 11/04/2015 [facility] [place] MCHC 32.8 g/dL 32.0 - 36.0 11/04/2015 [facility] [place] RDW 13.1 % 11.5 - 14.5 11/04/2015 [facility] [place] MPV 7.2 fL 7.4 - 10.4 11/04/2015 [facility] [place] Platelet 357 K/CMM 133 - 450 11/04/2015 [facility] [place] RBC 5.11 M/CMM 4.20 - 5.40 11/04/2015 [facility] [place] WBC 14.8 K/CMM 3.7 - 10.4 11/04/2015 [facility] [place] MCV 95.1 fL 80.0 - 98.0 11/04/2015 [facility] [place] Hct 48.6 % 36.0 - 48.0 11/04/2015 [facility] [place] Hgb 15.9 g/dL 12.0 - 16.0 11/04/2015 [facility] [place] Basophils # 0.1 K/CMM 0.0 - 0.2 11/04/2015 [facility] [place] Monocytes # 2.0 K/CMM 0.0 - 0.8 11/04/2015 [facility] [place] Lymphocytes # 2.2 K/CMM 1.0 - 5.5 11/04/2015 [facility] [place] Lymphocytes 14.8 % 20.0 - 40.0 11/04/2015 [facility] [place] Monocytes 13.6 % 2.0 - 12.0 11/04/2015 [facility] [place] Segs-Bands # 10.0 K/CMM 1.5 - 8.1 11/04/2015 [facility] [place] Segs 67.4 % 45.0 - 75.0 11/04/2015 [facility] [place] Eosinophils # 0.6 K/CMM 0.0 - 0.5 11/04/2015 [facility] [place] Basophils 0.5 % 0.0 - 1.0 11/04/2015 [facility] [place] Eosinophils 3.7 % 0.0 - 4.0 11/04/2015 [facility] Chest 1view DX Chest 1view DX Portable chest: The cardiac silhouette and pulmonary vasculature are within normal limits. The lungs and pleural spaces are clear. There is no significant change compared to 04/17/2015. IMPRESSION: No acute radiographic abnormality in the chest. SL:13 11/04/2015 - - Read by: Diego Block MD Dictated Date/time: 11/04/15 13:14 Electronically Signed by: Diego Block MD 11/04/15 13:14 FINAL REPORT [facility] Chest 2 views DX Chest 2 views DX HISTORY: Respiratory abnormality. Two views chest. Comparison 06/16/2006. Mildly hyperinflated lung lópez as before. No infiltrate pleural effusion or pneumothorax. Heart size normal. No overt CHF. IMPRESSION: No acute finding. SL:13 04/17/2015 - - Read by: Jose Baxter MD Dictated Date/time: 04/17/15 10:51 Electronically Signed by: Jose Baxter MD 04/17/15 10:53 FINAL REPORT [facility] Digital Mammo Screen Matthew MA w heena Digital Mammo Screen Matthew MA w heena - DIGITAL MAMMO SCREEN MATTHEW MA W HEENA BILATERAL DIGITAL SCREENING MAMMOGRAM 3D/2D WITH CAD: 03/07/2015 CLINICAL: Routine. 2D digital mammographic images and 3D digital tomosynthesis images were obtained in the CC and MLO projections. Current study was evaluated with a Computer Aided Detection (CAD) system. Comparison is made to exams dated: 03/05/2014 mammogram, 03/02/2013 mammogram, 02/29/2012 mammogram, 02/16/2011 mammogram and 02/06/2010 mammogram - [facility]. There are scattered fibroglandular densities in both breasts. There are benign appearing calcifications in both breasts. There also are benign appearing densities in both breasts. Additionally there are benign appearing nodules in the right breast. No significant masses, calcifications, or other findings are seen in either breast. There has been no significant interval change. IMPRESSION: BENIGN There is no mammographic evidence of malignancy. A 1 year screening mammogram is recommended. Maggie hurtado/penrad:03/17/2015 15:57:35 Business Initiatives Manager: Yesy Guardado, [facility] This exam was dictated and interpreted by [id number] for [facility] [place]. letter sent: Normal exam Mammogram BI-RADS: 2 Benign 03/07/2015 - - Read by: Maggie Simons MD Dictated Date/time: 03/17/15 15:57 Electronically Signed by: Maggie Simons MD 03/17/15 15:57 FINAL REPORT [facility] Hand AP lateral Bilateral Hand AP lateral Bilateral Examination: Bilateral hands, 4 views History: 719.44 pain in joint, hand Comparison: None. Findings: Multiple views of the bilateral hands show diffuse bony demineralization. Severe osteoarthritic changes throughout the DIP joints are seen with severe joint space narrowing and marginal osteophyte formation with chronic appearing central erosions involving the bilateral small finger DIP joints as well as right middle finger DIP joint, compatible with an erosive osteoarthritis. Severe osteoarthrosis of the bilateral thumb CMC joints are also seen. 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 SL: 12 04/10/2014 - - Read by: Ge Lilly MD Dictated Date/time: 04/10/14 09:50 Electronically Signed by: Ge Lilly MD 04/10/14 09:51 FINAL REPORT [facility] Digital Mammo Screen Matthew MA w heena Digital Mammo Screen Matthew MA w heena - DIGITAL MAMMO SCREEN MATTHEW MA W HEENA BILATERAL DIGITAL SCREENING MAMMOGRAM 3D/2D WITH CAD: 03/05/2014 CLINICAL: Routine. 2D digital mammographic images and 3D digital tomosynthesis images were obtained in the CC and MLO projections. Current study was evaluated with a Computer Aided Detection (CAD) system. Comparison is made to exams dated: 03/02/2013 mammogram, 02/29/2012 mammogram, 02/16/2011 mammogram, 02/06/2010 mammogram, 01/31/2009 mammogram and 01/26/2008 mammogram - [facility]. There are scattered fibroglandular densities in both breasts. There are benign appearing calcifications in both breasts. There also are benign appearing densities in both breasts. Additionally there are benign appearing nodules in the right breast. No significant masses, calcifications, or other findings are seen in either breast. There has been no significant interval change. IMPRESSION: BENIGN There is no mammographic evidence of malignancy. A screening mammogram in one year is recommended. Maggie hurtado/penrad:03/06/2014 08:47:52 Business Initiatives Manager: Stephie Fonseca [facility] This exam was dictated and interpreted by [id number] for [facility]. letter sent: Normal exam Mammogram BI-RADS: 2 Benign 03/05/2014 - - Read by: Maggie Simons MD Dictated Date/time: 03/06/14 08:47 Electronically Signed by: Maggie Simons MD 03/06/14 08:47 FINAL REPORT [facility] Vital Signs Vital Sign Value Date Comments Source Respitory Rate 18 09/01/2017 [facility] Temperature Oral (F) 98.1 F 09/01/2017 [facility] Systolic (mm Hg) 114 09/01/2017 [facility] Diastolic (mm Hg) 80 09/01/2017 [facility] Heart Rate 100 09/01/2017 [facility] Respitory Rate 20 09/01/2017 [facility] Heart Rate 67 09/01/2017 [facility] Respitory Rate 14 09/01/2017 [facility] Temperature Oral (F) 97.9 F 09/01/2017 [facility] Systolic (mm Hg) 138 09/01/2017 [facility] Diastolic (mm Hg) 71 09/01/2017 [facility] Systolic (mm Hg) 132 08/31/2017 [facility] Diastolic (mm Hg) 78 08/31/2017 [facility] Temperature Oral (F) 98.6 F 08/31/2017 [facility] Heart Rate 87 08/31/2017 [facility] Weight 68.864 08/29/2017 [facility] Weight 69.091 08/27/2017 [facility] Height 170.18 cm 08/27/2017 [facility] BMI Calculated 23.86 08/27/2017 [facility] Respitory Rate 20 08/27/2017 [facility] Systolic (mm Hg) 137 08/26/2017 [facility] Diastolic (mm Hg) 78 08/26/2017 [facility] Respitory Rate 16 08/26/2017 [facility] Heart Rate 103 08/26/2017 [facility] Temperature Oral (F) 97.9 F 08/26/2017 [facility] Systolic (mm Hg) 138 08/26/2017 [facility] Diastolic (mm Hg) 82 08/26/2017 [facility] Respitory Rate 16 08/26/2017 [facility] Temperature Oral (F) 97.8 F 08/26/2017 [facility] Heart Rate 77 08/26/2017 [facility] Systolic (mm Hg) 101 08/26/2017 [facility] Diastolic (mm Hg) 65 08/26/2017 [facility] Heart Rate 74 08/26/2017 [facility] Temperature Oral (F) 98.1 F 08/26/2017 [facility] Weight 69.9 08/23/2017 [facility] Height 170.18 cm 08/23/2017 [facility] Weight 71.004 08/23/2017 [facility] BMI Calculated 24.52 08/23/2017 [facility] Temperature Oral (F) 98.0 F 11/05/2015 [facility] Heart Rate 81 11/05/2015 [facility] Systolic (mm Hg) 153 11/05/2015 [facility] Diastolic (mm Hg) 77 11/05/2015 [facility] Respitory Rate 16 11/05/2015 [facility] Respitory Rate 16 11/05/2015 [facility] Heart Rate 82 11/05/2015 [facility] Systolic (mm Hg) 152 11/05/2015 [facility] Diastolic (mm Hg) 77 11/05/2015 [facility] Temperature Oral (F) 98.2 F 11/05/2015 [facility] Respitory Rate 18 11/05/2015 [facility] Systolic (mm Hg) 113 11/05/2015 [facility] Diastolic (mm Hg) 68 11/05/2015 [facility] Heart Rate 83 11/05/2015 [facility] Temperature Oral (F) 98.1 F 11/05/2015 [facility] Height 170.18 cm 11/04/2015 [facility] BMI Calculated 23.54 11/04/2015 [facility] Weight 68.182 11/04/2015 [facility] Height 170.18 cm 11/04/2015 [facility] BMI Calculated 23.54 11/04/2015 [facility] Weight 68.182 11/04/2015 [facility] Encounters Location Location Details Encounter Type Encounter Number Reason For Visit Attending Provider ADM Date DC Date Status Source [facility] Outpatient [id number] Hope Childers 03/05/2014 03/06/2014 [facility] Outpatient [id number] Zahida Mehta 04/10/2014 04/11/2014 [facility] Outpatient [id number] Hope Liseth 03/17/2015 03/18/2015 [facility] Outpatient [id number] Zahida Mehta 04/17/2015 04/18/2015 [facility] OBS Observation Patient [id number] Joni Wagner 11/04/2015 11/05/2015 [facility] Outpatient [id number] Hope Childers 03/09/2016 03/10/2016 [facility] Outpatient [id number] Zahida Mehta 02/03/2017 02/04/2017 [facility] Outpatient [id number] Hope Childers 04/15/2017 04/16/2017 [facility] Inpatient [id number] Abe Oleary 08/23/2017 08/27/2017 [facility] Inpatient Rehab [id number] Giovanny Melvin Jr 08/27/2017 09/01/2017 [facility] [place] OP Therapy Patients [id number] Giovanny Melvin Jr 09/06/2017 10/06/2017 [facility] [place] [facility] [place] [facility] [id number] Marilia Majmulizbeth 10/06/2017 11/05/2017 [facility] [place] [facility] [place] [facility] [id number] Marilia Majmudajade 11/07/2017 12/07/2017 [facility] [place] [facility] [place] [facility] [id number] Galiine Majmudar 12/08/2017 01/07/2018 [facility] [place] [facility] Outpatient [id number] Hope Childers 12/26/2017 12/27/2017 [facility] Procedures Procedure Code Date Perfomer Comments Source Small bowel resection [id number] [facility] [place] Small bowel resection [id number] [facility]
--- OUTSIDE RECORDS SUMMARY | 2018-09-09 12:43 | XMS REPORT | Summary of Care ---
Author Author [facility] Address Unknown Phone Unavailable Encounter HQ Cynthia_kiera(FIN) [id number] Date(s): 09/06/17 - 10/05/17 [facility] Discharge Disposition: Home or Self Care Attending Physician: Giovanny Garrett MD Vital Signs No data available for this section Problem List Condition Effective Dates Status Health Status Informant Arrhythmia(Confirmed Resolved )1 CVA (cerebrovascular Active accident)(Confirmed) HTN Resolved (hypertension)(Confi rmed) Generalized muscle Active weakness(Confirmed) RA (rheumatoid Resolved arthritis)(Confirmed ) 1misfire in the SA node pt states Allergies, Adverse Reactions, Alerts Substance Reaction Severity Status codeine Active iodine Active Medications No data available for this section Results No data available for this section Immunizations No data available for this section Procedures Procedure Date Related Diagnosis Body Site Small bowel resection Social History Social History Type Response Alcohol Never Smoking Status Former smoker; Type: Cigarettes; Previous treatment: None; Concerns about tobacco use in household: No; Exposure to Tobacco Smoke None; Cigarette Smoking Last 365 Days No; Reg Smoking Cessation Counseling No Assessment and Plan No data available for this section
--- OUTSIDE RECORDS SUMMARY | 2018-09-09 12:43 | XMS REPORT | Summary of Care ---
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 Muscle weakness (generalized) (Final) - Unspecified abnormalities of gait and mobility (Final) - Unsteadiness on feet (Final) - Stiffness of unspecified joint, not elsewhere classified (Final) - Discharge Disposition: Home or Self Care Attending Physician: Marilia Love MD Vital Signs No data available for [...] Procedures Procedure Date Related Diagnosis Body Site Status Small bowel resection Completed Social History Social History Type Response Alcohol Never Smoking Status Former smoker; Type: Cigarettes; Previous treatment: None; Concerns about tobacco use in household: No; Exposure to Tobacco Smoke None; Cigarette Smoking Last 365 Days No; Reg Smoking Cessation Counseling No entered on: 08/26/17 Assessment and Plan No data available for this section
--- OUTSIDE RECORDS SUMMARY | 2018-09-09 12:43 | XMS REPORT | Summary of Care ---
Author Author [facility] Organization [facility] Address Unknown Phone Unavailable Encounter SANTY Silveira(CRYSTAL) [id number] Date(s): 08/26/17 - 09/01/17 [facility] [address] [place] [address]- [phone] Final: Other cerebrovascular disease Discharge Disposition: Home or Self Care Attending Physician: Giovanny Garrett MD Admitting Physician: Giovanny Garrett MD Vital Signs 1 2 3 Most recent to oldest [Reference Range]: 170.18 cm (08/26/17 8:59 PM) Height 98.1 DegF (09/01/17 8:00 AM) 97.9 DegF (08/31/17 8:11 PM) 98.6 DegF (08/31/17 3:57 PM) Temperature Oral [96.4-99.1 DegF] 138/71 mmHg (08/31/17 8:11 PM) 132/78 mmHg (08/31/17 3:57 PM) Blood Pressure [90-140/60-90 mmHg] 114 mmHg (09/01/17 8:00 AM) Systolic Blood Pressure [90-140 mmHg] 80 mmHg (09/01/17 8:00 AM) Diastolic Blood Pressure [60-90 mmHg] 18 BRMIN (09/01/17 8:00 AM) 20 BRMIN (08/31/17 8:36 PM) 14 BRMIN (08/31/17 8:11 PM) Respiratory Rate [14-20 BRMIN] 100 bpm (09/01/17 8:00 AM) 67 bpm (08/31/17 8:11 PM) 87 bpm (08/31/17 3:57 PM) Peripheral Pulse Rate [60-100 bpm] 68.864 kg (08/29/17 9:36 AM) 69.091 kg (08/26/17 8:59 PM) Weight 23.86 m2 (08/26/17 8:59 PM) Body Mass Index Problem List Condition Effective Dates Status Health Status Informant Arrhythmia(Confirmed Resolved )1 CVA (cerebrovascular Active accident)(Confirmed) HTN Resolved (hypertension)(Confi rmed) Generalized muscle Active weakness(Confirmed) RA (rheumatoid Resolved arthritis)(Confirmed ) 1misfire in the SA node pt states Allergies, Adverse Reactions, Alerts Substance Reaction Severity Status codeine Active iodine Active Medications acetaminophen 650 mg, 20.3 mL, Route: PO, Drug form: LIQ, Q6H, Dosing Weight 69.9, kg, PRN Peggy n 1-3/Temp > 100.4 F, Start date: 08/26/17 20:35:00 [employer]AD[employer], Duration: 30 day, Stop date: 09/25/17 20:34:00 [employer]AB[employer] WORKER LEADER Notes: Max jqbqhktclmuwx=9998yc/day (4 gm/day). (Same as: Tylenol) Start Date: 08/26/17 Stop Date: 09/01/17 Status: Discontinued albuterol-ipratropium 2.5-0.5 mg inhalation solution 3 ml, Route: NEB, Drug Form: SOLN, Dosing Weight 69.9, kg, PRN, PRN Respiratory Protocol, Start date: 08/26/17 20:35:00 FABRIC WORKER LEADER, Duration: 30 day, Stop date: 20:34:00 FABRIC WORKER LEADER Notes: (Same as: Duoneb) Start Date: 08/26/17 Stop Date: 09/01/17 Status: Discontinued amitriptyline 25 mg, 1 tab, Route: PO, Drug form: TAB, Bedtime, Dosing Weight 69.9, kg, Start date: 08/26/17 21:00:00 FABRIC WORKER LEADER, Duration: 30 day, Stop date: 09/24/17 21:00:00 FABRIC WORKER LEADER Notes: (Same as: Elavil) Start Date: 08/26/17 Stop Date: 09/01/17 Status: Discontinued aspirin 325 mg, 1 tab, Route: PO, Drug form: TAB, Daily, Dosing Weight 69.9, kg, Start d ate: 08/27/17 9:00:00 F[employer]RIC WORKER LEADER, Duration: 30 day, Stop date: 09/25/17 9:00:00 FABRIC WORKER LEADER Notes: Take with food. Start Date: 08/27/17 Stop Date: 09/01/17 Status: Discontinued atorvastatin 80 mg, 2 tab, Route: PO, Drug form: TAB, Bedtime, Dosing Weight 69.9, kg, Start date: 08/26/17 21:00:00 FABRIC WORKER LEADER, Duration: 30 day, Stop date: 09/24/17 21:00:00 FABRIC WORKER LEADER Notes: (Same as: Lipitor) Start Date: 08/26/17 Stop Date: 09/01/17 Status: Discontinued atorvastatin 80 mg oral tablet 80 mg=1 tab, PO, Bedtime, # 30 tab, 0 Refill(s), Pharmacy: [facility] [place] #3 Start Date: 09/01/17 Status: Ordered ciprofloxacin 500 mg, 1 tab, Route: PO, Drug form: TAB, [id number], Dosing Weight 69.9, kg, Start date: 08/26/17 21:00:00 F[employer]RIC WORKER LEADER, Duration: 14 day, Stop date: 09/09/17 12:00:00 FABRIC WORKER LEADER, ABX Indication: Other (specify in Comments) Notes: May interfere w/enteral feedings - Take 1 hr before or 2 hrs after anta cids, dairy pdt & minerals. On empty stomach. Start Date: 08/26/17 Stop Date: 08/31/17 Status: Discontinued clopidogrel 75 mg oral tablet 75 mg=1 tab, PO, Daily, # 30 tab, 0 Refill(s), Pharmacy: [facility] # 3 Start Date: 09/01/17 Stop Date: 10/01/17 Status: Ordered docusate 100 mg, 1 cap, Route: PO, Drug form: CAP, BID, Dosing Weight 69.9, kg, Start mulu e: 08/27/17 9:00:00 FABRIC WORKER LEADER, Duration: 30 day, Stop date: 09/25/17 17:00:00 FABRIC WORKER LEADER Notes: (Same as: Colace) (Do Not Crush) Start Date: 08/27/17 Stop Date: 09/01/17 Status: Discontinued flecainide 100 mg, 2 tab, Route: PO, Drug form: TAB, Q12H, Dosing Weight 69.9, kg, Start da te: 08/26/17 21:00:00 FABRIC WORKER LEADER, Duration: 30 day, Stop date: 09/25/17 9:00:00 FABRIC WORKER LEADER Notes: (Same as: Tambocor) Start Date: 08/26/17 Stop Date: 09/01/17 Status: Discontinued folic acid 1 mg, 1 tab, Route: PO, Drug form: TAB, Daily, Dosing Weight 69.9, kg, Start mulu e: 08/27/17 9:00:00 FABRIC WORKER LEADER, Duration: 30 day, Stop date: 09/25/17 9:00:00 FABRIC WORKER LEADER Notes: (Same as: Folvite) Start Date: 08/27/17 Stop Date: 09/01/17 Status: Discontinued gabapentin 100 mg oral capsule 100 mg, 1 cap, Route: PO, Drug form: CAP, BID, Dosing Weight 69.9, kg, Start mulu e: 08/27/17 9:00:00 FABRIC WORKER LEADER, Duration: 30 day, Stop date: 09/25/17 17:00:00 FABRIC WORKER LEADER Notes: (Same as: Neurontin) Start Date: 08/27/17 Stop Date: 08/27/17 Status: Deleted heparin 5,000 unit, 1 mL, Route: SUB-Q, Drug form: INJ, Q12H, Dosing Weight 69.9, kg, St art date: 08/26/17 21:22:00 FABRIC WORKER LEADER, Duration: 30 day, Stop date: 09/25/17 21:00:00 FABRIC WORKER LEADER Notes: porcine heparin Start Date: 08/26/17 Stop Date: 08/27/17 Status: Discontinued melatonin 3 mg oral tablet 3 mg, 1 tab, Route: PO, Drug Form: TAB, Dosing Weight 69.091, kg, Bedtime, Start date: 08/27/17 21:00:00 FABRIC WORKER LEADER, Duration: 30 day, Stop date: 09/25/17 21:00:00 FABRIC WORKER LEADER Notes: (Same as: Melatonin) Start Date: 08/27/17 Stop Date: 09/01/17 Status: Discontinued methotrexate 12.5 mg, 5 tab, Route: PO, Drug form: TAB, Q7D, Dosing Weight 69.091, kg, Start date: 08/31/17 10:00:00 FABRIC WORKER LEADER, Duration: 30 day, Stop date: 09/28/17 9:00:00 FABRIC WORKER LEADER Notes: (Same as:Methotrexate Sodium)Chemotherapy agent/Handle with cautionWASTE: F/P - Black; E - Yellow Start Date: 08/31/17 Stop Date: 08/31/17 Status: Discontinued methotrexate 2.5 mg oral tablet 12.5 mg=5 tab, PO, Q7D, every Tuesday, 0 Refill(s) Start Date: 08/27/17 Stop Date: 09/01/17 Status: Discontinued Occupational Therapy See Instructions, MISC, ONCALL, Evaluate and Treat 2-3 times per week for 2-4 we eks, # 1 unit, 0 Refill(s) Start Date: 09/01/17 Status: Ordered Physical Therapy See Instructions, MISC, ONCALL, Evaluate and Treat 2-3 times per week for 4-6 we eks, # 1 ea, 0 Refill(s) Start Date: 09/01/17 Status: Ordered Plavix 75 mg, 1 tab, Route: PO, Drug form: TAB, Daily, Dosing Weight 69.9, kg, Start da te: 08/27/17 9:00:00 FABRIC WORKER LEADER, Duration: 30 day, Stop date: 09/25/17 9:00:00 FABRIC WORKER LEADER Notes: (Same As: Plavix) Start Date: 08/27/17 Stop Date: 09/01/17 Status: Discontinued predniSONE 2 mg, 2 tab, Route: PO, Drug form: TAB, Daily, Dosing Weight 69.9, kg, Start mulu e: 08/27/17 9:00:00 FABRIC WORKER LEADER, Duration: 30 day, Stop date: 09/25/17 9:00:00 FABRIC WORKER LEADER Notes: (Same as: Prednisone.) Take with food. Start Date: 08/27/17 Stop Date: 09/01/17 Status: Discontinued predniSONE 5 mg, 2 tab, Route: PO, Drug form: TAB, Daily, Dosing Weight 69.9, kg, Start mulu e: 08/27/17 9:00:00 FABRIC WORKER LEADER, Duration: 30 day, Stop date: 09/25/17 9:00:00 FABRIC WORKER LEADER Notes: Take with food. Start Date: 08/27/17 Stop Date: 09/01/17 Status: Discontinued tramadol 50 mg oral tablet 50 mg, 1 tab, Route: PO, Drug form: TAB, Bedtime, Dosing Weight 69.091, kg, PRN Pain Score 4-6, Start date: 08/27/17 9:29:00 FABRIC WORKER LEADER, Duration: 30 day, Stop date: 1 11/27/16 9:28:00 FABRIC WORKER LEADER Notes: Not to exceed 400mg/day. (Same As: Ultram) Start Date: 08/27/17 Stop Date: 09/01/17 Status: Discontinued tramadol 50 mg oral tablet 100 mg, 2 tab, Route: PO, Drug form: TAB, Bedtime, Dosing Weight 69.091, kg, PRN Pain Score 7-10, Start date: 08/27/17 9:29:00 FABRIC WORKER LEADER, Duration: 30 day, Stop date: 09/26/17 9:28:00 FABRIC WORKER LEADER Notes: Not to exceed 400mg/day. (Same As: Ultram) Start Date: 08/27/17 Stop Date: 09/01/17 Status: Discontinued tramadol 50 mg oral tablet 100 mg=2 tab, PO, Bedtime, PRN Pain Score 7-10, 0 Refill(s) Start Date: 08/27/17 Stop Date: 09/01/17 Status: Discontinued tramadol 50 mg oral tablet 50 mg=1 tab, PO, Bedtime, PRN Pain Score 4-6, 0 Refill(s) Start Date: 08/27/17 Status: Ordered trazodone 50 mg, 1 tab, Route: PO, Drug form: TAB, Bedtime, Dosing Weight 69.9, kg, PRN In somnia, Start date: 08/26/17 18:57:00 FABRIC WORKER LEADER, Duration: 30 day, Stop date: 09/25/17 18:56:00 FABRIC WORKER LEADER Notes: (Same As: Kaden) Start Date: 08/26/17 Stop Date: 09/01/17 Status: Discontinued valsartan 80 mg, 1 tab, Route: PO, Drug form: TAB, Q12H, Dosing Weight 69.9, kg, Start mulu e: 08/26/17 21:19:00 FABRIC WORKER LEADER, Duration: 30 day, Stop date: 09/25/17 21:00:00 FABRIC WORKER LEADER Notes: Same as Dipika Start Date: 08/26/17 Stop Date: 09/01/17 Status: Discontinued Results ELECTROLYTES Most recent to 1 oldest [Reference Range]: Sodium Lvl [135-145 139 mEq/L mEq/L] (08/27/17 4:59 AM) Potassium Lvl 3.5 mEq/L [3.5-5.1 mEq/L] (08/27/17 4:59 AM) Chloride Lvl [95-109 107 mEq/L mEq/L] (08/27/17 4:59 AM) CO2 [24-32 mEq/L] 24 mEq/L (08/27/17 4:59 AM) AGAP [10.0-20.0 11.5 mEq/L mEq/L] (08/27/17 4:59 AM) CHEM PANEL Most recent to 1 oldest [Reference Range]: Creatinine Lvl 1.02 mg/dL [0.50-1.40 mg/dL] (08/27/17 4:59 AM) eGFR 54 mL/min/1.73m2 1 *NA* (08/27/17 4:59 AM) BUN [7-22 mg/dL] 19 mg/dL (08/27/17 4:59 AM) Glucose Lvl [70-99 92 mg/dL mg/dL] (08/27/17 4:59 AM) Calcium Lvl 8.8 mg/dL [8.5-10.5 mg/dL] (08/27/17 4:59 AM) Phosphorus [2.5-4.5 2.8 mg/dL mg/dL] (08/27/17 4:59 AM) Magnesium Lvl 2.1 mg/dL [1.8-2.4 mg/dL] (08/27/17 4:59 AM) Vitamin D, 25-OH, 55.3 ng/mL Total [30.0-100.0 (08/27/17 4:59 AM) ng/mL] 1Result Comment: The eGFR is calculated using the [...] from the National Kidney Disease Education Program ( NKDEP) which additionally recommends that when the eGFR is used in patients with extremes of body mass index for purposes of drug dosing, the eGFR should be mul tiplied by the estimated BMI. HEMATOLOGY Most recent to 1 oldest [Reference Range]: WBC [3.7-10.4 K/CMM] 14.9 K/CMM *HI* (08/27/17 4:59 AM) RBC [4.20-5.40 4.56 M/CMM M/CMM] (08/27/17 4:59 AM) Hgb [12.0-16.0 g/dL] 14.2 g/dL (08/27/17 4:59 AM) Hct [36.0-48.0 %] 42.4 % (08/27/17 4:59 AM) MCV [80.0-98.0 fL] 93.0 fL (08/27/17 4:59 AM) MCH [27.0-31.0 pg] 31.0 pg (08/27/17 4:59 AM) MCHC [32.0-36.0 33.4 g/dL g/dL] (08/27/17 4:59 AM) RDW [11.5-14.5 %] 13.7 % (08/27/17 4:59 AM) Platelet [133-450 353 K/CMM K/CMM] (08/27/17 4:59 AM) MPV [7.4-10.4 fL] 7.9 fL (08/27/17 4:59 AM) Segs [45.0-75.0 %] 55.2 % (08/27/17 4:59 AM) Lymphocytes 24.1 % [20.0-40.0 %] (08/27/17 4:59 AM) Monocytes [2.0-12.0 11.3 % %] (08/27/17 4:59 AM) Eosinophils [0.0-4.0 9.0 % %] *HI* (08/27/17 4:59 AM) Basophils [0.0-1.0 0.4 % %] (08/27/17 4:59 AM) Segs-Bands # 8.2 K/CMM [1.5-8.1 K/CMM] *HI* (08/27/17 4:59 AM) Lymphocytes # 3.6 K/CMM [1.0-5.5 K/CMM] (08/27/17 4:59 AM) Monocytes # [0.0-0.8 1.7 K/CMM K/CMM] *HI* (08/27/17 4:59 AM) Eosinophils # 1.3 K/CMM [0.0-0.5 K/CMM] *HI* (08/27/17 4:59 AM) Basophils # [0.0-0.2 0.1 K/CMM K/CMM] (08/27/17 4:59 AM) PT [12.0-14.7 13.4 seconds seconds] (08/27/17 4:59 AM) INR [0.85-1.17] 1.02 (08/27/17 4:59 AM) PTT [22.9-35.8 28.7 seconds seconds] (08/27/17 4:59 AM) Immunizations No data available for this section Procedures Procedure Date Related Diagnosis Body Site Small bowel resection Social History Social History Type Response Alcohol Never Smoking Status Former smoker; Type: Cigarettes; Previous treatment: None; Concerns about tobacco use in household: No; Exposure to Tobacco Smoke None; Cigarette Smoking Last 365 Days No; Reg Smoking Cessation Counseling No Assessment and Plan Extracted from: Title: Clinical Document Author: Giovanny Garrett MD Date: 08/31/17 PM&R PROGRESS NOTE CHIEF COMPLAINT IDENTIFICATION: A 77-year-old lady being seen for ongoing rehabilitation needs after having a right MCA stroke. INTERVAL EVENTS AND SUBJECTIVE: All interval events reviewed. No new complaints of fevers, chills, nausea, vomiting, chest pain, palpitations, headaches, or dizziness. No new focal strength or sensation changes. No new bowel or bladder complaints. Mood is good. Speech is improving. PHYSICAL EXAMINATION: Vitals and Temp: VitalsTmp(F)[id number] 08/31 07:[id number]--- 08/31 06:43 81837--- 08/30 20:36 1894--- 08/30 20:[id number]/441208--- 08/30 16:[id number]--- 24 Hr Tmax: 98.2F (36.78c) at 08/30 16:19Vital Signs are the last 5 in the past 48 hours. GENERAL: No apparent distress, seen in her room. PSYCH: Alert, oriented, appropriate, pleasant and cooperative. HEENT: Pupils equal, round, reactive to light. Extraocular muscles intact. Moist mucous membranes. CARDIOVASCULAR: 2+ bilateral upper extremity pulses, regular rate and rhythm all extremities, warm, well-perfused. PULMONARY: Respirations unlabored without conversational dyspnea. ABDOMEN: Doughy, nontender, nondistended. GENITOURINARY: No Galvin. SKIN: No new breakdown. NEUROMUSCULOSKELETAL: Left lower facial droop is slowly improving. Left arm strength 4/5. Left leg strength unbreakable right side strength unbreakable. No hypertonicity. No clonus. Ambulation is with some dragging of the left leg. Some slight decreased clearance narrow base of balance. LABORATORY DATA: Labs Most Recent Results Previous Results Previous Results Previous Results WBC H 14.9 (AUG 27) -- -- -- Hgb 14.2 (AUG 27) 15.5 (AUG 26) -- -- Hct 42.4 (AUG 27) -- -- -- Plt 353 (AUG 27) -- -- -- Na 139 (AUG 27) -- -- -- K 3.5 (AUG 27) -- -- -- CO2 24 (AUG 27) -- -- -- Cl 107 (AUG 27) -- -- -- Cr 1.02 (AUG 27) -- -- -- BUN 19 (AUG 27) -- -- -- Glucose Random 92 (AUG 27) -- -- -- Mg 2.1 (AUG 27) -- -- -- Phos 2.8 (AUG 27) -- -- -- Ca 8.8 (AUG 27) -- -- -- PT 13.4 (AUG 27) -- -- -- INR 1.02 (AUG 27) -- -- -- PTT 28.7 (AUG 27) -- -- -- IMAGING STUDIES: No new imaging. ASSESSMENT AND PLAN: This is a 77-year-old lady with: 1. Acute right middle cerebral artery stroke: Dr. Marshall has been the following neurologist. We will continue post-stroke risk reduction. Continue daily stroke education. Continue monitoring, though the examination is stable for the partial left hemiplegia, dysarthria and oral dysphagia related to facial droop. We will continue daily stroke education and rehabilitation therapies as below. 2. History of cardiac arrhythmia: Cardiology is going to follow. We are placing her back on the telemetry to monitor for atrial fibrillation. She has been recommended for the dual antiplatelet agents. -Discussed with Dr. Atkinson. No events so far. -Per Cardiology note, has history of RVOT PVC -No Afib documented 3. Rheumatoid arthritis. . We are taking her off both Mobic due to potentially increase risk for stroke. Otherwise, continue home medications. Continue prednisone. -Discontinue MTX 4. E. coli urinary tract infection: We transitioned to Cipro and plan for last day of treatment. Symptoms have been improving. 5. Rehabilitation for deficits in mobility, ADLs, IADLs, weakness, incoordination and imbalance. Due to the above issues: -all interval therapy notes reviewed. -caregiver/family training. -Progressing to mod indep in all domains. -Coal days today and tomorrow. -Continue Pt, OT and LEVEL VIAL MARKER. ELOS: 09/01 to home with family. F/U: outpt PT, OT Extracted from: Title: Clinical Document Author: Cristiano Flores MD Date: 08/27/17 Cardiology Note Cristiano Flores MD, PA SUBJECTIVE: Reason for consult: cardiac arrhythmias [consult placed for Dr Atkinson] HISTORY OF PRESENT ILLNESS: A very pleasant 77-year-old lady previously independent in all domains, she presented to [facility] after she developed acute onset of slurred speech, left facial droop and left arm weakness. She was found to have a right MCA stroke. She was started on the TPA protocol, which was administered. There was no hemorrhagic conversion. She began having improvements in the left-sided strength and coordination. Secondary stroke workup reveals a history of a cardiac arrhythmia. No documented atrial fibrillation. She had some dyslipidemia. She also has hypertension. She began to participate in the therapies and she was deemed to be acute intensive inpatient rehabilitation candidate and was admitted to the [facility] rehabilitation unit yesterday. She gives h/o cardiac arrhythmias and says she has an "irregularly irregulr" rhythm as told by her curriculum and assessment director at medical center Dr Daily. She is not however aware of the term afib. She has been placed by him on Flecainide. REVIEW OF SYSTEMS: No new fevers, chills, nausea, vomiting, chest pains, headaches, or dizziness. She did feel like she was having some palpitations yesterday, associated with some mild anxiety. No other bowel or bladder complaints. Sleep has been interrupted. Mood is good. Left-sided strength is improving. Other than stated above, a complete review of systems was done and negative other than the pertinent positives and negatives listed above. PAST MEDICAL HISTORY: Hypertension, cardiac arrhythmia. CURRENT MEDICATIONS: Reviewed and reconciled in the EMR. ALLERGIES: Codeine and iodine. FAMILY HISTORY: No reports of premature coronary artery disease, diabetes or stroke. SOCIAL HISTORY: She lives at home by herself but has strong social support network. She is very active in her tenriism and other volunteer activities. No alcohol, tobacco or drug usage. Vitals and Temp: VitalsTmp(F)[id number] 08/27 09:0698.456621/83-------- 08/27 07:04 1694 21% 08/26 21:55 2094 21% 08/26 20:0098.8375696/[id number]--- 24 Hr Tmax: 98.7F (37.06c) at 08/26 20:00Vital Signs are the last 5 in the past 48 hours. Scheduled Meds (13): 08/26/17 amitriptyline 25 mg PO Bedtime 08/27/17 aspirin 325 mg PO Daily 08/26/17 atorvastatin 80 mg PO Bedtime 08/26/17 ciprofloxacin 500 mg PO [id number] 08/27/17 clopidogrel (Plavix) 75 mg PO Daily 08/27/17 docusate 100 mg PO BID 08/26/17 flecainide 100 mg PO Q12H 08/27/17 folic acid 1 mg PO Daily 08/27/17 melatonin (melatonin 3 mg oral tablet) 3 mg PO Bedtime 08/31/17 methotrexate 12.5 mg PO Q7D 08/27/17 predniSONE 5 mg PO Daily 08/27/17 predniSONE 2 mg PO Daily 08/26/17 valsartan 80 mg PO Q12H Continuous Infusions: None Labs Most Recent Results Previous Results Previous Results Previous Results WBC H 14.9 (AUG 27) -- -- -- Hgb 14.2 (AUG 27) 15.5 (AUG 26) -- -- Hct 42.4 (AUG 27) -- -- -- Plt 353 (AUG 27) -- -- -- Na 139 (AUG 27) -- -- -- K 3.5 (AUG 27) -- -- -- CO2 24 (AUG 27) -- -- -- Cl 107 (AUG 27) -- -- -- Cr 1.02 (AUG 27) -- -- -- BUN 19 (AUG 27) -- -- -- Glucose Random 92 (AUG 27) -- -- -- Mg 2.1 (AUG 27) -- -- -- Phos 2.8 (AUG 27) -- -- -- Ca 8.8 (AUG 27) -- -- -- PT 13.4 (AUG 27) -- -- -- INR 1.02 (AUG 27) -- -- -- PTT 28.7 (AUG 27) -- -- -- EXAM: Good BP control; NSR; afebrile Head: normocephalic and atraumatic Neck: no carotid bruit; no JVD CV: Regular; -S3; no significant murmurs Lungs: Clear; no wheezing; good air entry Abd: soft and no organomegaly; + bowel sounds Ext: no CCE; good pulses distally Neuro: left sided weakness; oriented *3 Psych: appropriate ASSESSMENT: She gives h/o cardiac arrhythmias and says she has an "irregularly irregulr" rhythm as told by her curriculum and assessment director at [facility]. She is not however aware of the term afib. She has been placed by him on Flecainide. 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 Hyperlipidemia. Rheumatoid arthritis. Urinary tract infection, E. coli. PLAN: For the time being Plavix is reasonable. She can undergo event monitor or loop recorder evaluation as outpt and if afib is detected she can then be switched to Eliquis or similar. Meanwhile, it is best to work on her strength and reduce her fall risk with PT/rehab.
--- OUTSIDE RECORDS SUMMARY | 2018-09-09 12:43 | XMS REPORT | Summary of Care ---
Author Organization Unknown Address Unknown Phone Unavailable Encounter HQ Landonr_mandoaron([facility]) [id number] Date(s): 03/05/14 - 03/05/14 [facility] [address] Discharge Disposition: Home Physician Attending: Hope Childers MD Physician_Referring: Hope Childers MD Reason for Visit ROUTINE...PT IS AWARE OF $50.00 FEE Problem List No data available for this section Allergies, Adverse Reactions, Alerts Substance Reaction Severity Status codeine Active iodine Active Medications No data available for this section Medications Administered During Your Visit No data available for this section Immunizations No data available for this section
--- OUTSIDE RECORDS SUMMARY | 2018-09-09 12:43 | XMS REPORT | Summary of Care ---
Author Organization Unknown Address Unknown Phone Unavailable Encounter HQ Cynthia_kiera([facility]) [id number] Date(s): 04/10/14 - 04/10/14 [facility] [address] Discharge Disposition: Home Physician Attending: Zahida Mehta MD Physician Admitting: Zahida Mehta MD Reason for Visit 719.44 Problem List No data available for this section Allergies, Adverse Reactions, Alerts Substance Reaction Severity Status codeine Active iodine Active Medications No data available for this section Medications Administered During Your Visit No data available for this section Immunizations No data available for this section
--- OUTSIDE RECORDS SUMMARY | 2018-09-09 12:43 | XMS REPORT | Summary of Care ---
Author Author [facility] Address Unknown Phone Unavailable Encounter SANTY Silveira([place]) [id number] Date(s): 11/07/17 - 12/06/17 [facility] Encounter Diagnosis Unspecified sequelae of other cerebrovascular disease (Final) - 12/09/17 Muscle weakness (generalized) (Final) - Unspecified abnormalities of gait and mobility (Final) - Unsteadiness on feet (Final) - Stiffness of unspecified joint, not elsewhere classified (Final) - Cerebellar stroke syndrome (Final) - Unsteadiness on feet (Final) - [...]
--- OUTSIDE RECORDS SUMMARY | 2018-09-09 12:43 | XMS REPORT | Summary of Care ---
Author Author [facility] Organization [facility] Address Unknown Phone Unavailable Encounter HQ Landonr_kiera([facility]) [id number] Date(s): 04/17/15 - 04/17/15 [facility] [address] [place] [address]- [phone] Discharge Disposition: Home Attending Physician: Zahida Metha MD Admitting Physician: Zahida Mehta MD Vital Signs No data available for this section Problem List No data available for this section Allergies, Adverse Reactions, Alerts Substance Reaction Severity Status codeine Active iodine Active Medications No data available for this section Results No data available for this section Immunizations No data available for this section Procedures No data available for this section Social History No data available for this section Assessment and Plan No data available for this section
--- OUTSIDE RECORDS SUMMARY | 2018-09-09 12:43 | XMS REPORT ---
Author Author [facility] Address Unknown Phone Unavailable Care Team Providers Care International Operations Manager Name Role Phone ALLAN JIMÉNEZ Unavailable Unavailable KAREEM RAMON Unavailable Unavailable Obed PEPPER (NON STAFF) ROLAND Unavailable Unavailable Problems This patient has no known problems. Allergies, Adverse Reactions, Alerts This patient has no known allergies or adverse reactions. Medications This patient has no known medications. Results Test Description Test Time Test Comments Text Results Atomic Results Result Comments CT ABDOMEN/PELVIS WO 2018-09-08 15:00:00 [place] [address] Patient Name: CONY CARDENAS MR #: [id number] : 1940 Age/Sex: 78/F Req #: [id number] Adm Physician: Ordered by: ALLAN JIMÉNEZ MD Report #: [id number] Location: CT Room/Bed: Procedure: [id number] CT/CT ABDOMEN/PELVIS WO Exam Date: 09/08/18 Exam Time: 1427 REPORT STATUS: Signed TECHNIQUE: CT of the abdomen and pelvis WITHOUT int ravenous contrast. The abdomen and pelvis were scanned utilizing a multidetector helical scanner from the diaphragm to the lesser trochanters after the oral administration of Gastrografin contrast. No IV contrast was administered per request. Coronal and sagittal reformats are available. The absence of intravenous contrast limits sensitivity of the exam. HISTORY: Enlarged lymph nodes,. Fevers. COMPARISON: CT abdomen pelvis 04/16/[address] Chest 09/05/2018. FINDINGS: LOWER THORAX: Patchy last opacities in the dependent right lower lobe, unchanged from prior chest CTs. Coronary atherosclerosis. HEPATOBILIARY: No focal hepatic lesions. No biliary ductal dilatation. The gallbladder appears unremarkable. SPLEEN: No splenomegaly. Splenic calcification is present. PANCREAS: Limited evaluation in the absence of contrast. No specific evidence of a focal masses or ductal dilatation. ADRENALS: No discrete adrenal nodule identified. KIDNEYS/URETERS: No hydronephrosis or definite solid mass lesions. Nonspecific mild bilateral perinephric stranding. Punctate 1 mm calcification in the right mid pole kidney on series 85, image 30. PELVIC ORGANS/BLADDER: The visualized pelvic organs appear unremarkable. PERITONEUM / RETROPERITONEUM: No free air or fluid. LYMPH NODES: No pathologically enlarged lymph node identified. VESSELS:There are extensive atherosclerotic vascular calcifications in the abdominal aorta and branch vessels. The common hepatic artery and splenic artery originate from the aorta. GI TRACT: No bowel dilatation or thickening. There are postoperative changes involving the distal sigmoid colon. The cecum is again noted to be low-lying in the pelvis and demonstrates moderate retained stool. Appendix is not visualized. BONES AND SOFT TISSUES: No acute bony abnormality. No suspicious lytic or blastic lesions. Severe facet degenerative changes in the lower lumbar spine. IMPRESSION: No acute findings in the abdomen or pelvis. No evidence of lymphadenopathy. Signed by: Dr. Kaveh Wray MD on 09/08/2018 3:15 PM Dictated By: KAVEH WRAY MD 1514 Transcribed By: ANALIA on 09/08/18 1514 COPY TO: ALLAN JIMÉNEZ MD CT CHEST WO 2018-09-05 16:17:00 [place] [address] Patient Name: CONY CARDENAS MR #: [id number] : 1940 Age/Sex: 78/F Req #: [id number] Adm Physician: Ordered by: KAREEM RAMON MD Report #: [id number] Location: CT Room/Bed: Procedure: [id number] CT/CT CHEST WO Exam Date: 09/05/18 Exam Time: 1020 REPORT STATUS: Signed EXAM: CT Chest WITH contrast COMPARISON: CT Chest with c ontrast 10/24/2017. TECHNIQUE: Chest was scanned utilizing a multidetector helical scanner from the lung apex through the level of the adrenal glands without administration of IV contrast. Coronal and sagittal reformations were obtained. Routine protocol was performed. IV CONTRAST: 100 mL of Omnipaque 300 RADIATION DOSE: Total DLP: 227.3 mGy*cm COMPLICATIONS: None FINDINGS: LUNGS AND AIRWAYS: Bilateral solid pulmonary nodules are again noted, unchanged from CT on 10/24/2017. These include a 7 mm right lower lobe solid pulmonary nodule on series 129, image 82, additional 4-5 mm right lower lobe nodules on images 76 and 87, and 4 mm nodule in the left lower lobe on image 81. Biapical pleural parenchymal opacity with slightly nodular appearance at the left lung apex is unchanged. There are increasing tree in bud opacities in the dependent right lower lobe on series 129, image 47. Patchy ground glass opacities in the posterior right lower lobe, right lung apex, and juxta-pleural right upper lobe are again noted. PLEURA: The pleural spaces are clear. HEART AND MEDIASTINUM: Visualized portions of the thyroid gland are unremarkable. There are extensive atherosclerotic calcifications of the thoracic aorta, great vessels, and coronary arteries. Thoracic aorta is ectatic with ascending portion measuring up to 4.2 cm, unchanged. No pericardial effusion. UPPER ABDOMEN: Limited non-contrast views of the upper abdomen show no abnormality within the partially visualized liver, pancreas, adrenals, or kidneys. Splenic granuloma is noted. BONES: No acute bony findings. Degenerative changes of the visualized spine. SOFT TISSUES: Loop recorder lies within the subcutaneous tissues of the medial left breast. IMPRESSION: Stable bilateral pulmonary nodules measuring up to [address] on 04/2015. Given stability for greater than three years, findings are consistent with benign etiology. New tree in bud opacities in the dependent right upper lobe, likely infectious or inflammatory. 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 Signed by: Dr. Kaveh Wray MD on 09/05/2018 4:37 PM Dictated By: KAVEH WRAY MD 36 Transcribed By: ANALIA on 09/05/187 COPY TO: KAREEM RUBIO PTA, MD HIP RIGHT ONE VW (+/- PELVIS) 2018-04-25 14:57:00 [place] [address] Patient Name: CONY CARDENAS MR #: [id number] : 1940 Age/Sex: 78/F Req #: [id number] Adm Physician: Ordered by: ROLAND PEPPER Report #: [id number] Location: [facility] Room/Bed: Procedure: [id number] DX/HIP RIGHT ONE VW (+/- PELVIS) Exam Date: Exam Time: REPORT STATUS: Signed PROCEDURE: HIP RIGHT ONE VW (+/- PELVIS) COMPARISON: CT abdomen/pelvis 04/16/16. INDICATIONS: BILATERAL HIP PAIN FINDINGS: There are moderate degenerative changes of the right hip with joint space narrowing and subchondral sclerosis. No evidence of fracture or malalignment. Gluteal enthesopathy noted over the greater trochanter. CONCLUSION: Moderate right hip osteoarthritis. No acute osseous abnormality. Dictated by: KAVEH WRAY M.D. on 04/25/2018 at 14:57 Electronically approved by: KAVEH WRAY M.D. on 04/25/2018 at 14:57 Dictated By: KAVEH WRAY MD 56 Transcribed By: BAMBI on 04/25/181456 COPY TO: ROLAND PEPPER (NON STAFF) HIP LEFT ONE VIEW (+/- PELVIS) 2018-04-25 14:55:00 [place] [address] Patient Name: CONY CARDENAS MR #: [id number] : 1940 Age/Sex: 78/F Req #: [id number] Adm Physician: Ordered by: ROLAND PEPPER Report #: [id number] Location: [facility] Room/Bed: Procedure: [id number] DX/HIP LEFT ONE VIEW (+/- PELVIS) Exam Date: Exam Time: REPORT STATUS: Signed PROCEDURE: HIP LEFT ONE VIEW (+/- PELVIS) COMPARISON: CT Abdomen/Pelvis 04/16/16 INDICATIONS: BILATERAL HIP PAIN FINDINGS: Mild degenerative changes in the left hip with joint space narrowing and subchondral sclerosis. No evidence of fracture or malalignment. Normal mineralization. Surgical clip projects over the sacrum. CONCLUSION: Mild left hip osteoarthritis. No acute osseous abnormality. Dictated by: KAVEH WRAY M.D. on 04/25/2018 at 14:55 Electronically approved by: KAVEH WRAY M.D. on 04/25/2018 at 14:55 Dictated By: KAVEH WRAY MD 54 Transcribed By: BAMBI on 04/25/181454 COPY TO: ROLAND PEPPER (NON STAFF) SP LUMBAR AP LATERAL 2-3VWS 2018-04-25 14:53:[address] [place], [place] [address] Patient Name: CONY CARDENAS MR #: [id number] : 1940 Age/Sex: 78/F Req #: [id number] [facility] Physician: Ordered by: ROLAND PEPPER Report #: [id number] Location: [facility] Room/Bed: Procedure: [id number] DX/SP LUMBAR AP LATERAL 2-3VWS Exam Date: 04/25/18 Exam Time: 1315 REPORT STATUS: Signed PROCEDURE: X-RAY LUMBAR SPINE, TWO VIEWS COMPARISON: None. INDICATIONS: LOW BACK PAIN FINDINGS: There are five lumbar-type vertebral bodies. There is mild anterolisthesis of L4 on L5. Multilevel moderate degenerative disc and facet degenerative changes, most advanced at L4-L5 and L5-S1. There is bony neural foraminal stenosis, likely mild at L5-S1. Vertebral body heights are maintained. No evidence of fracture or lytic/blastic lesions. Mild degenerative changes at the sacroiliac joints bilaterally. Atherosclerotic calcifications of the abdominal aorta. CONCLUSION: No evidence of fracture. Multilevel moderate degenerative disc and facet degenerative changes, most advanced at L4-L5 and L5-S1. Likely mild bony foraminal narrowing at L5-S1. Dictated by: KAVEH WRAY M.D. on 04/25/2018 at 14:53 Electronically approved by: KAVEH WRAY M.D. on 04/25/2018 at 14:53 Dictated By: KAVEH WRAY MD 1453 Transcribed By: BAMBI on 04/25/18 1453 COPY TO: ROLAND PEPPER (NON STAFF) CT CHEST [facility] [address] [place] [address] Patient Name: CONY CARDENAS MR #: [id number] : 1940 Age/Sex: 77/F [facility] #: [id number] Req #: [id number] [facility] Physician: Ordered by: KAREEM RAMON MD Report #: [id number] Location: CT Room/Bed: Procedure: [id number] CT/CT CHEST WO Exam Date: 10/24/17 Exam Time: 0750 REPORT STATUS: Signed PROCEDURE: CT CHEST WITHOUT CONTRAST CT scan of the chest WITHOUT intravenous contrast, using standard protocol. TECHNIQUE: The chest was scanned utilizing a multidetector helical scanner from the apex to the level of the adrenal glands. No IV contrast was administered because of referring physician request. Coronal and sagittal multiplanar reformations were obtained. COMPARISON: 11/26/2016, 04/28/2015 INDICATIONS: DISORDERS OF LUNG, LUNG NODULE FINDINGS: Lines/tubes: None. Lungs and Airways: Nodules: 7 mm laterally within the right lower lobe (series 3, image 80), unchanged 4 mm groundglass posterior basal segment right lower lobe (series 3 image 82), unchanged 3 mm juxtapleural left upper lobe (series 3 image 43), unchanged 4-5 mm solid, lateral segment left lower lobe (series 3 image 71), unchanged 5-6 mm solid, posterior right lower lobe (series 3 image 72), unchanged Scattered foci of groundglass opacity in the right lung apex, juxtapleural anterior right upper lobe, and posterior right lower lobe, not significantly changed. Moderate upper lobe predominant centrilobular emphysematous changes unchanged. No new consolidations. Trachea, mainstem bronchi, and the central lobar and segmental bronchi are patent. Pleura: No pleural effusion or pneumothorax. Heart and mediastinum: The visualized portions of the thyroid gland are unremarkable. There is atherosclerotic calcification of the thoracic aorta, coronary arteries, and great vessel origins. The thoracic aorta remains ectatic along the ascending segment, measuring 4.2 cm, unchanged. Pulmonary outflow tract is of normal caliber. The great vessel origins are of normal caliber and configuration. No pericardial effusion. Soft tissues: Loop recorder lies within the subcutaneous fat of the medial left breast. Soft tissues are otherwise unremarkable. Abdomen: Visualized portions of the liver, gallbladder, pancreas, and adrenal glands are unremarkable. Calcified granuloma in the spleen. Bones: No osseous destructive lesions. Multilevel degenerative disc changes and facet arthropathy of the lower cervical and thoracic spine. IMPRESSION: Stable bilateral pulmonary nodules measuring up to 7 mm. An additional followup CT scan of the chest without contrast is suggested in one year, at which point 3 years of stability will be documented (index examination from 04/2015). 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 Dictated by: Jun De Luna M.D. on 10/24/2017 at 8:37 Electronically approved by: Jun De Luna M.D. on 10/24/2017 at 8:37 Dictated By: JUN DE LUNA MD Transcribed By: BAMBI on 10/24/17836 COPY TO: KAREEM RAMON MD
--- OUTSIDE RECORDS SUMMARY | 2018-09-09 12:43 | XMS REPORT | Summary of Care ---
Author Author [facility] Organization [facility] Address Unknown Phone Unavailable Encounter HQ Raoul(FIN) [id number] Date(s): 02/03/17 - 02/03/17 [facility] [address] [place] [address]- Discharge Disposition: Home or Self Care Attending Physician: Zahida Mehta MD Admitting Physician: Zahida Mehta MD Vital Signs No data available for this section Problem List Condition Effective Dates Status Health Status Informant Arrhythmia(Confirmed Resolved )1 HTN Resolved (hypertension)(Confi rmed) RA (rheumatoid Resolved arthritis)(Confirmed ) 1misfire in [...] Response Alcohol Never Smoking Status Former smoker; Exposure to Tobacco Smoke None; Cigarette Smoking Last 365 Days No; Reg Smoking Cessation Counseling No Assessment and Plan No data available for this section
--- OUTSIDE RECORDS SUMMARY | 2018-09-09 12:43 | XMS REPORT | Summary of Care ---
Author Organization Unknown Address Unknown Phone Unavailable Encounter HQ Estherntr_kiera([facility]) [id number] Date(s): 03/07/15 - 03/07/15 [facility] [address] [place] [address]- [phone] Discharge Disposition: Home Physician Attending: Hope Childers MD Physician_Referring: Hope Childers MD Vital Signs No data available for [...]
--- OUTSIDE RECORDS SUMMARY | 2018-09-09 12:43 | XMS REPORT | Summary of Care ---
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
--- OUTSIDE RECORDS SUMMARY | 2018-09-09 12:43 | XMS REPORT | Summary of Care ---
Author Author [facility] Organization [facility] Address Unknown Phone Unavailable Encounter SANTY Silveira(CRYSTAL) [id number] Date(s): 08/23/17 - 08/26/17 [facility] [address] [place] [address]- [phone] Discharge Disposition: DC/DISC TO REHAB Attending Physician: Abe Oleary MD Admitting Physician: Abe Oleary MD Vital Signs 1 2 3 Most recent to oldest [Reference Range]: 170.18 cm (08/23/17 10:50 AM) Height 97.9 DegF (08/26/17 3:59 PM) 97.8 DegF (08/26/17 10:58 AM) 98.1 DegF (08/26/17 7:42 AM) Temperature Oral [96.4-99.1 DegF] 137/78 mmHg (08/26/17 3:59 PM) 138/82 mmHg (08/26/17 10:58 AM) 101/65 mmHg (08/26/17 7:42 AM) Blood Pressure [90-140/60-90 mmHg] 20 BRMIN (08/26/17 7:03 PM) 16 BRMIN (08/26/17 3:59 PM) 16 BRMIN (08/26/17 10:58 AM) Respiratory Rate [14-20 BRMIN] 103 bpm *HI* (08/26/17 3:59 PM) 77 bpm (08/26/17 10:58 AM) 74 bpm (08/26/17 7:42 AM) Peripheral Pulse Rate [60-100 bpm] 69.9 kg (08/23/17 4:07 PM) 71.004 kg (08/23/17 10:50 AM) Weight 24.52 m2 (08/23/17 10:50 AM) Body Mass Index Problem List Condition Effective Dates Status Health Status Informant Arrhythmia(Confirmed Resolved )1 CVA (cerebrovascular Active accident)(Confirmed) HTN Resolved (hypertension)(Confi rmed) Generalized muscle Active weakness(Confirmed) RA (rheumatoid Resolved arthritis)(Confirmed ) 1misfire in the SA node pt states Allergies, Adverse Reactions, Alerts Substance Reaction Severity Status codeine Active iodine Active Medications acetaminophen 650 mg, 2 tab, Route: PO, Drug form: TAB, Q6H, Dosing Weight 69.9, kg, PRN Pain 1-3/Temp > 100.4 F, Start date: 08/24/17 11:25:00 ELECTRIC TRANSFER OPERATOR, Duration: 30 day, Stop date: 09/23/17 11:24:00 ELECTRIC TRANSFER OPERATOR Notes: Do not exceed 4 gm/day. (Same as: Tylenol) Start Date: 08/24/17 Stop Date: 08/26/17 Status: Discontinued albuterol 0.083% inhalation solution 2.5 mg=3 mL, NEB, Q6H, PRN as needed for wheezing, 0 Refill(s) Start Date: 08/23/17 Status: Suspended albuterol 90 mcg/inh inhalation powder 2 puff, INHALATION, Q4H, PRN as needed for shortness of breath or wheezing, 0 Re fill(s) Start Date: 08/23/17 Stop Date: 08/26/17 Status: Discontinued albuterol-ipratropium 2.5-0.5 mg inhalation solution 3 ml, Route: NEB, Drug Form: SOLN, Dosing Weight 69.9, kg, PRN, PRN Respiratory Protocol, Start date: 08/23/17 19:08:00 ELECTRIC TRANSFER OPERATOR, Duration: 30 day, Stop date: 19:07:00 ELECTRIC TRANSFER OPERATOR Notes: (Same as: Duoneb) Start Date: 08/23/17 Stop Date: 08/26/17 Status: Discontinued alteplase 6.3904 mg, Route: IV, ONCE, Dosing Weight 71.004, kg, Start date: 08/23/17 11:37 :00 ELECTRIC TRANSFER OPERATOR, Stop date: 08/23/17 11:37:00 ELECTRIC TRANSFER OPERATOR Start Date: 08/23/17 Stop Date: 08/23/17 Status: Completed alteplase 57.5132 mg, Route: IV, ONCE, Dosing Weight 71.004, kg, Start date: 08/23/17 11:3 7:00 ELECTRIC TRANSFER OPERATOR, Stop date: 08/23/17 11:37:00 ELECTRIC TRANSFER OPERATOR Start Date: 08/23/17 Stop Date: 08/23/17 Status: Completed amitriptyline 25 mg, 1 tab, Route: PO, Drug form: TAB, Bedtime, Dosing Weight 69.9, kg, Start date: 08/25/17 21:00:00 ELECTRIC TRANSFER OPERATOR, Duration: 30 day, Stop date: 09/23/17 21:00:00 ELECTRIC TRANSFER OPERATOR Notes: (Same as: Elavil) Start Date: 08/25/17 Stop Date: 08/26/17 Status: Discontinued amitriptyline 25 mg oral tablet 25 mg=1 tab, PO, Bedtime, 0 Refill(s) Start Date: 08/23/17 Status: Suspended Anoro Ellipta 62.5 mcg-25 mcg inhalation powder 1 puff, INHALATION, Daily, 0 Refill(s) Start Date: 08/23/17 Stop Date: 08/23/17 Status: Deleted aspirin 81 mg, PO, Daily Start Date: 08/23/17 Stop Date: 08/23/17 Status: Deleted aspirin 325 mg, 1 tab, Route: PO, Drug form: TAB, Daily, Dosing Weight 69.9, kg, Start d ate: 08/24/17 21:11:00 ELECTRIC TRANSFER OPERATOR, Duration: 30 day, Stop date: 09/23/17 9:00:00 ELECTRIC TRANSFER OPERATOR Notes: Take with food. Start Date: 08/24/17 Stop Date: 08/26/17 Status: Discontinued aspirin 81 mg tablet, enteric coated 81 mg=1 tab, PO, Daily, 0 Refill(s) Start Date: 08/23/17 Status: Suspended Atelvia 35 mg oral enteric coated tablet 35 mg=1 tab, PO, QWed, 0 Refill(s) Start Date: 08/23/17 Stop Date: 08/26/17 Status: Discontinued atorvastatin 80 mg, 2 tab, Route: PO, Drug form: TAB, Bedtime, Dosing Weight 71.004, kg, Star t date: 08/23/17 21:00:00 ELECTRIC TRANSFER OPERATOR, Duration: 30 day, Stop date: 09/22/17 20:59:00 CS T Notes: (Same as: Lipitor) Start Date: 08/23/17 Stop Date: 08/26/17 Status: Discontinued atorvastatin 40 mg oral tablet 80 mg=2 tab, PO, Bedtime, 0 Refill(s) Start Date: 08/26/17 Stop Date: 08/27/17 Status: Deleted ciprofloxacin 500 mg, 1 tab, Route: PO, Drug form: TAB, [id number], Dosing Weight 69.9, kg, Start date: 08/26/17 12:00:00 ELECTRIC TRANSFER OPERATOR, Duration: 3 day, Stop date: 08/29/17 0:00:00 ELECTRIC TRANSFER OPERATOR, ABX Indication: Urinary Tract Infection Notes: May interfere w/enteral feedings - Take 1 hr before or 2 hrs after anta cids, dairy pdt & minerals. On empty stomach. Start Date: 08/26/17 Stop Date: 08/26/17 Status: Discontinued ciprofloxacin 500 mg oral tablet 500 mg=1 tab, PO, [id number], 0 Refill(s) Start Date: 08/26/17 Status: Suspended clopidogrel 75 mg oral tablet 75 mg=1 tab, PO, Daily, 0 Refill(s) Start Date: 08/26/17 Stop Date: 08/27/17 Status: Deleted Colace 100 mg oral capsule 100 mg, 1 cap, Route: PO, Drug form: CAP, BID, Dosing Weight 69.9, kg, Start mulu e: 08/25/17 17:00:00 ELECTRIC TRANSFER OPERATOR, Duration: 30 day, Stop date: 09/24/17 9:00:00 ELECTRIC TRANSFER OPERATOR Notes: (Same as: Colace) (Do Not Crush) Start Date: 08/25/17 Stop Date: 08/26/17 Status: Discontinued Diovan 80 mg, 1 tab, Route: PO, Drug form: TAB, Q12H, Dosing Weight 69.9, kg, Start mulu e: 08/24/17 21:18:00 ELECTRIC TRANSFER OPERATOR, Duration: 30 day, Stop date: 09/23/17 21:00:00 ELECTRIC TRANSFER OPERATOR Notes: Same as Diovan Start Date: 08/24/17 Stop Date: 08/26/17 Status: Discontinued enalapril 0.625 mg, 0.5 mL, Route: IVP, Drug form: INJ, Q6H, Dosing Weight 71.004, kg, PRN Hypertension, Start date: 08/23/17 11:43:00 ELECTRIC TRANSFER OPERATOR, Duration: 30 day, Stop date: 11/23/16 11:42:00 ELECTRIC TRANSFER OPERATOR, For SBP > 180mmHg and/or DBP > 105mmHg Notes: (Same as: Vasotec-IV) Start Date: 08/23/17 Stop Date: 08/26/17 Status: Discontinued folic acid 1 mg, 1 tab, Route: PO, Drug form: TAB, Daily, Dosing Weight 69.9, kg, Start mulu e: 08/25/17 9:00:00 ELECTRIC TRANSFER OPERATOR, Duration: 30 day, Stop date: 09/23/17 9:00:00 ELECTRIC TRANSFER OPERATOR Notes: (Same as: Folvite) Start Date: 08/25/17 Stop Date: 08/26/17 Status: Discontinued gabapentin 100 mg oral capsule 100 mg=1 cap, PO, BID, 0 Refill(s) Start Date: 08/26/17 Stop Date: 08/27/17 Status: Deleted heparin 5,000 unit, 1 mL, Route: SUB-Q, Drug form: INJ, Q12H, Dosing Weight 69.9, kg, St art date: 08/24/17 21:00:00 ELECTRIC TRANSFER OPERATOR, Duration: 30 day, Stop date: 09/23/17 9:00:[address] Notes: porcine heparin Start Date: 08/24/17 Stop Date: 08/26/17 Status: Discontinued labetalol 5 mg, Route: IV, ONCE, Dosing Weight 71.004, kg, Start date: 08/23/17 11:47:[address], Stop date: 08/23/17 11:47:00 ELECTRIC TRANSFER OPERATOR Start Date: 08/23/17 Stop Date: 08/23/17 Status: Completed labetalol 10 mg, 2 mL, Route: IVP, Drug form: INJ, Q10Min, Dosing Weight 71.004, kg, PRN H ypertension, For SBP > 180 mmHg and/or DBP > 105 mmHg, Priority: Routine, Start date: 08/23/17 11:43:00 ELECTRIC TRANSFER OPERATOR, Duration: 30 day, Stop date: 09/22/17 11:42:00 ELECTRIC TRANSFER OPERATOR Notes: (Same as: Normodyne, Trandate)Push over 2 minutes Give bolus over 2-3 mi nutes. Start Date: 08/23/17 Stop Date: 08/26/17 Status: Discontinued mannitol 70 gm, 350 mL, Route: IV, Drug form: INJ, ONCE, Dosing Weight 69.9, kg, Start da te: 08/24/17 21:55:00 ELECTRIC TRANSFER OPERATOR, Stop date: 08/24/17 21:55:00 ELECTRIC TRANSFER OPERATOR Notes: (Same as: Osmitrol)Infuse through 5 micron or smaller filter WASTE: F/P - Sink; E - Municipal Trash Bin Start Date: 08/24/17 Stop Date: 08/24/17 Status: Completed Mobic 7.5 mg oral tablet 7.5 mg=1 tab, PO, QPM, 0 Refill(s) Start Date: 08/23/17 Status: Suspended morphine Sulfate 2 mg, Route: IVP, ONCE, Dosing Weight 71.004, kg, Start date: 08/23/17 12:38:00 ELECTRIC TRANSFER OPERATOR, Stop date: 08/23/17 12:38:00 ELECTRIC TRANSFER OPERATOR Start Date: 08/23/17 Stop Date: 08/23/17 Status: Completed morphine Sulfate 1 mg, 0.5 mL, Route: IV, Drug form: SOLN, Q4H, Dosing Weight 69.9, kg, PRN Pain 4-6/Temp > 100.4 F, Start date: 08/23/17 16:40:00 ELECTRIC TRANSFER OPERATOR, Duration: 30 day, Stop date: 09/22/17 16:39:00 ELECTRIC TRANSFER OPERATOR Start Date: 08/23/17 Stop Date: 08/26/17 Status: Discontinued Multiple Vitamins oral tablet 1 tab, PO, Daily, 0 Refill(s) Start Date: 08/23/17 Status: Suspended Neurontin 100 mg, 1 cap, Route: PO, Drug form: CAP, BID, Dosing Weight 69.9, kg, Priority: NOW, Start date: 08/24/17 3:22:00 ELECTRIC TRANSFER OPERATOR, Duration: 30 day, Stop date: 09/22/17 17 :00:00 ELECTRIC TRANSFER OPERATOR Notes: (Same as: Neurontin) Start Date: 08/24/17 Stop Date: 08/26/17 Status: Discontinued nystatin topical 100,000 units/g powder 1 appl, Route: TOP, PRN, Drug form: PWDR, PRN For Fungal Prophylaxis, Start date : 08/23/17 18:23:00 ELECTRIC TRANSFER OPERATOR, Duration: 30 day, Stop date: 09/22/17 18:22:00 ELECTRIC TRANSFER OPERATOR Notes: (Same as:Mycostatin, Nilstat) For external use only. Start Date: 08/23/17 Stop Date: 08/25/17 Status: Discontinued Orencia 750 mg, IV, q4wk, 0 Refill(s) Start Date: 08/23/17 Stop Date: 08/26/17 Status: Discontinued Orencia Start Date: 08/23/17 Stop Date: 08/23/17 Status: Deleted Plavix 75 mg, 1 tab, Route: PO, Drug form: TAB, Daily, Dosing Weight 69.9, kg, Start da te: 08/27/17 9:00:00 ELECTRIC TRANSFER OPERATOR, Duration: 30 day, Stop date: 09/25/17 9:00:00 ELECTRIC TRANSFER OPERATOR Notes: (Same As: Plavix) Start Date: 08/27/17 Stop Date: 08/26/17 Status: Canceled predniSONE 2 mg, 2 tab, Route: PO, Drug form: TAB, Daily, Dosing Weight 69.9, kg, Start mulu e: 08/25/17 9:00:00 ELECTRIC TRANSFER OPERATOR, Duration: 30 day, Stop date: 09/23/17 9:00:00 ELECTRIC TRANSFER OPERATOR Notes: (Same as: Prednisone.) Take with food. Start Date: 08/25/17 Stop Date: 08/26/17 Status: Discontinued predniSONE 5 mg, 0.5 tab, Route: PO, Drug form: TAB, Daily, Dosing Weight 69.9, kg, Start d ate: 08/25/17 9:00:00 ELECTRIC TRANSFER OPERATOR, Duration: 30 day, Stop date: 09/23/17 9:00:00 ELECTRIC TRANSFER OPERATOR Notes: (Same as: PredniSONE) Take with food. Start Date: 08/25/17 Stop Date: 08/26/17 Status: Discontinued predniSONE 1 mg oral tablet 2 mg=2 tab, PO, Daily, 0 Refill(s) Start Date: 08/23/17 Status: Suspended predniSONE 5 mg oral tablet 5 mg=1 tab, PO, Daily, 0 Refill(s) Start Date: 08/23/17 Status: Suspended Rocephin + sterile water 10 mL 1 gm, Route: IV, [id number], Dosing Weight 69.9, kg, Start date: 08/23/17 17:00:00 ELECTRIC TRANSFER OPERATOR, Duration: 5 day, Stop date: 08/27/17 17:00:00 ELECTRIC TRANSFER OPERATOR, ABX Indication: Urinary Tract Infection Notes: (Same As: Rocephin).Use with 100 mL NS and infuse over 30 min MEDICA TION WASTE Product Size: 1000 mgProduct Wasted: ___ mg Start Date: 08/23/17 Stop Date: 08/26/17 Status: Discontinued Saline Flush 0.9% 10 ml, Route: IVP, Drug Form: INJ, Dosing Weight 71.004, kg, Q12H, Start date: 10/23/16 21:00:00 ELECTRIC TRANSFER OPERATOR, Duration: 30 day, Stop date: 09/22/17 20:59:00 ELECTRIC TRANSFER OPERATOR Notes: (Same as: BD Posiflush) Start Date: 08/23/17 Stop Date: 08/26/17 Status: Discontinued Saline Flush 0.9% 10 ml, Route: IVP, Drug Form: INJ, Dosing Weight 71.004, kg, PRN, PRN Line Flush , Start date: 08/23/17 11:43:00 ELECTRIC TRANSFER OPERATOR, Duration: 30 day, Stop date: 09/22/17 11:42 :00 ELECTRIC TRANSFER OPERATOR Notes: (Same as: BD Posiflush) Start Date: 08/23/17 Stop Date: 08/26/17 Status: Discontinued Saline Flush 0.9% 10 ml, Route: IVP, Drug Form: INJ, Dosing Weight 69.9, kg, PRN, PRN Line Flush, Start date: 08/23/17 18:23:00 ELECTRIC TRANSFER OPERATOR, Duration: 30 day, Stop date: 09/22/17 18:22:0 0 ELECTRIC TRANSFER OPERATOR Notes: (Same as: BD Posiflush) Start Date: 08/23/17 Stop Date: 08/24/17 Status: Discontinued Saline Flush 0.9% 10 ml, Route: IVP, Drug Form: INJ, Dosing Weight 69.9, kg, Q12H, Start date: 21:00:00 ELECTRIC TRANSFER OPERATOR, Duration: 30 day, Stop date: 09/22/17 9:00:00 ELECTRIC TRANSFER OPERATOR Notes: (Same as: BD Posiflush) Start Date: 08/23/17 Stop Date: 08/24/17 Status: Discontinued Saline Flush 0.9% 10 mL, Route: IVP, Drug Form: INJ, Dosing Weight 71.004, kg, PRN, PRN Line Flush , Start date: 08/23/17 10:55:00 ELECTRIC TRANSFER OPERATOR, Duration: 30 day, Stop date: 09/22/17 10:54 :00 ELECTRIC TRANSFER OPERATOR Notes: (Same as: BD Posiflush) Start Date: 08/23/17 Stop Date: 08/23/17 Status: Discontinued Sodium Chloride 0.9% IV 50 mL 50 mL, Rate: 50 ml/hr, Infuse over: 1 hr, Route: IV, Dosing Weight 71.004 kg, To saadia Volume: 50, Use to flush line after tPA infusion., Priority: Routine, Start date: 08/23/17 11:37:00 ELECTRIC TRANSFER OPERATOR, Duration: 30 day, Stop date: 09/22/17 11:36:00 ELECTRIC TRANSFER OPERATOR, 1.85, m2 Start Date: 08/23/17 Stop Date: 08/23/17 Status: Deleted Sodium Chloride 0.9% IV 50 mL 50 mL, Rate: 50 ml/hr, Infuse over: 1 hr, Route: IV, Dosing Weight 71.004 kg, To saadia Volume: 50, Use to flush line after tPA infusion., Priority: Routine, Start date: 08/23/17 12:44:00 ELECTRIC TRANSFER OPERATOR, Duration: 1 doses or times, Stop date: 08/23/17 13: 43:00 ELECTRIC TRANSFER OPERATOR,... Start Date: 08/23/17 Stop Date: 08/23/17 Status: Completed Sodium Chloride 0.9% IV 500 mL 500 mL, Rate: 50 ml/hr, Infuse over: 10 hr, Route: IV, Dosing Weight 71.004 kg, Total Volume: 500, Priority: STAT, Start date: 08/23/17 11:37:00 ELECTRIC TRANSFER OPERATOR, Stop date: 09/22/17 11:36:00 ELECTRIC TRANSFER OPERATOR, 1.85, m2 Start Date: 08/23/17 Stop Date: 08/26/17 Status: Discontinued Suprax 400 mg oral capsule 400 mg=1 cap, PO, Daily, 0 Refill(s) Start Date: 08/23/17 Stop Date: 08/26/17 Status: Discontinued Tambocor 100 mg, 2 tab, Route: PO, Drug form: TAB, Q12H, Dosing Weight 69.9, kg, Start da te: 08/25/17 9:00:00 ELECTRIC TRANSFER OPERATOR, Duration: 30 day, Stop date: 09/23/17 21:00:00 ELECTRIC TRANSFER OPERATOR Notes: (Same as: Tambocor) Start Date: 08/25/17 Stop Date: 08/26/17 Status: Discontinued tramadol 50 mg oral tablet 50 mg, 1 tab, Route: PO, Drug form: TAB, Q6H, Dosing Weight 69.9, kg, PRN Pain S core 1-3, Start date: 08/26/17 15:56:00 ELECTRIC TRANSFER OPERATOR, Duration: 30 day, Stop date: 15:55:00 ELECTRIC TRANSFER OPERATOR Notes: Not to exceed 400mg/day. (Same As: Ultram) Start Date: 08/26/17 Stop Date: 08/26/17 Status: Discontinued Unknown Home Medication 1 puff, INHALATION, Q24H, Refill(s) 0 Start Date: 08/23/17 Stop Date: 08/26/17 Status: Discontinued Vitamin D3 2000 intl units oral tablet 2,000 IntlUnit=1 tab, PO, BID, 0 Refill(s) Start Date: 08/23/17 Status: Suspended Zofran 4 mg, Route: IVP, Drug form: INJ, ONCE, Dosing Weight 71.004, kg, Start date: 14:20:00 ELECTRIC TRANSFER OPERATOR, Stop date: 08/23/17 14:20:00 ELECTRIC TRANSFER OPERATOR Start Date: 08/23/17 Stop Date: 08/23/17 Status: Completed Zofran 4 mg, 2 mL, Route: IVP, Drug form: INJ, Q8H, Dosing Weight 69.9, kg, PRN Nausea, Start date: 08/23/17 16:40:00 ELECTRIC TRANSFER OPERATOR, Duration: 30 day, Stop date: 09/22/17 16:39: 00 ELECTRIC TRANSFER OPERATOR Notes: (Same as: Zofran) MEDICATION WASTE Product Size: 4 mgProduct Was perfecto: ___ mg Start Date: 08/23/17 Stop Date: 08/26/17 Status: Discontinued Results BLOOD BANK RESULTS Most recent to 1 oldest [Reference Range]: ABO/Rh A POS *Unknown* (08/23/17 10:59 AM) Antibody Scrn Negative (08/23/17 10:59 AM) ELECTROLYTES Most recent to 1 oldest [Reference Range]: Sodium Lvl [135-145 140 mEq/L mEq/L] (08/23/17 10:58 AM) Potassium Lvl 4.1 mEq/L [3.5-5.1 mEq/L] (08/23/17 10:58 AM) Chloride Lvl [95-109 104 mEq/L mEq/L] (08/23/17 10:58 AM) CO2 [24-32 mEq/L] 26 mEq/L (08/23/17 10:58 AM) AGAP [10.0-20.0 14.1 mEq/L mEq/L] (08/23/17 10:58 AM) CHEM PANEL Most recent to 1 oldest [Reference Range]: Creatinine Lvl 1.32 mg/dL [0.50-1.40 mg/dL] (08/23/17 10:58 AM) eGFR 39 mL/min/1.73m2 1 *NA* (08/23/17 10:58 AM) BUN [7-22 mg/dL] 16 mg/dL (08/23/17 10:58 AM) B/C Ratio [6-25] 12 (08/23/17 10:58 AM) Glucose Lvl [70-99 115 mg/dL mg/dL] *HI* (08/23/17 10:58 AM) Total Protein 7.6 g/dL [6.4-8.4 g/dL] (08/23/17 10:58 AM) Albumin Lvl [3.5-5.0 4.1 g/dL g/dL] (08/23/17 10:58 AM) Globulin [2.7-4.2 3.5 g/dL g/dL] (08/23/17 10:58 AM) A/G Ratio [0.7-1.6] 1.2 (08/23/17 10:58 AM) Calcium Lvl 9.4 mg/dL [8.5-10.5 mg/dL] (08/23/17 10:58 AM) ALT [0-65 unit/L] 18 unit/L (08/23/17 10:58 AM) AST [0-37 unit/L] 18 unit/L (08/23/17 10:58 AM) Alk Phos [39-136 70 unit/L unit/L] (08/23/17 10:58 AM) Bili Total [0.2-1.3 0.5 mg/dL mg/dL] (08/23/17 10:58 AM) 1Result Comment: The eGFR is calculated using [...] be mul tiplied by the estimated BMI. CARDIAC ENZYMES Most recent to 1 oldest [Reference Range]: Total CK [12-191 122 unit/L unit/L] (08/23/17 10:58 AM) CK MB [0.5-3.6 3.1 ng/mL ng/mL] (08/23/17 10:58 AM) CK MB Index 2.5 [0.0-2.5] (08/23/17 10:58 AM) Troponin-I <0.02 ng/mL [0.00-0.40 ng/mL] (08/23/17 10:58 AM) LIPIDS Most recent to 1 oldest [Reference Range]: CHD Risk [3.90-5.80] 2.32 *LOW* (08/23/17 4:27 PM) Chol [<=199 mg/dL] 230 mg/dL *HI* (08/23/17 4:27 PM) Trig [<=149 mg/dL] 145 mg/dL (08/23/17 4:27 PM) HDL [>=61 mg/dL] 99 mg/dL (08/23/17 4:27 PM) LDL (Calculated) 102 mg/dL [<=99 mg/dL] *HI* (08/23/17 4:27 PM) VLDL 29 *NA* (08/23/17 4:27 PM) SPECIAL CHEMISTRY Most recent to 1 oldest [Reference Range]: Hgb A1C [<=5.6 %] 5.8 % *HI* (08/23/17 4:27 PM) URINE AND STOOL Most recent to 1 oldest [Reference Range]: UA Turbidity [Clear] Clear (08/23/17 10:59 AM) UA Color [Yellow] Yellow *NA* (08/23/17 10:59 AM) UA pH [5.0-8.0] 6.0 (08/23/17 10:59 AM) UA Spec Grav 1.016 [<=1.030] (08/23/17 10:59 AM) UA Glucose [Negative Negative mg/dL mg/dL] *NA* (08/23/17 10:59 AM) UA Blood [Negative] Small *ABN* (08/23/17 10:59 AM) UA Ketones [Negative Negative mg/dL mg/dL] *NA* (08/23/17 10:59 AM) UA Protein [Negative Negative mg/dL mg/dL] (08/23/17 10:59 AM) UA Urobilinogen <=1.0 mg/dL [0.1-1.0 mg/dL] *NA* (08/23/17 10:59 AM) UA Bili [Negative] Negative *NA* (08/23/17 10:59 AM) UA Leuk Est Moderate [Negative] *ABN* (08/23/17 10:59 AM) UA Nitrite Positive [Negative] *ABN* (08/23/17 10:59 AM) UA WBC [0-5 /HPF] 13 /HPF *HI* (08/23/17 10:59 AM) UA RBC [0-2 /HPF] 5 /HPF *HI* (08/23/17 10:59 AM) UA Bacteria [None Occasional /HPF Seen /HPF] *NA* (08/23/17 10:59 AM) UA Sq Epi [Few /LPF] Occasional /LPF *NA* (08/23/17 10:59 AM) HEMATOLOGY Most recent to 1 oldest [Reference Range]: WBC [3.7-10.4 K/CMM] 13.2 K/CMM *HI* (08/23/17 10:58 AM) RBC [4.20-5.40 4.99 M/CMM M/CMM] (08/23/17 10:58 AM) Hgb [12.0-16.0 g/dL] 15.5 g/dL (08/23/17 10:58 AM) Hct [36.0-48.0 %] 46.8 % (08/23/17 10:58 AM) MCV [80.0-98.0 fL] 93.7 fL (08/23/17 10:58 AM) MCH [27.0-31.0 pg] 31.0 pg (08/23/17 10:58 AM) MCHC [32.0-36.0 33.1 g/dL g/dL] (08/23/17 10:58 AM) RDW [11.5-14.5 %] 13.8 % (08/23/17 10:58 AM) Platelet [133-450 441 K/CMM K/CMM] (08/23/17 10:58 AM) MPV [7.4-10.4 fL] 7.3 fL *LOW* (08/23/17 10:58 AM) Segs [45.0-75.0 %] 77.4 % *HI* (08/23/17 10:58 AM) Lymphocytes 15.2 % [20.0-40.0 %] *LOW* (08/23/17 10:58 AM) Monocytes [2.0-12.0 5.4 % %] (08/23/17 10:58 AM) Eosinophils [0.0-4.0 1.6 % %] (08/23/17 10:58 AM) Basophils [0.0-1.0 0.4 % %] (08/23/17 10:58 AM) Segs-Bands # 10.2 K/CMM [1.5-8.1 K/CMM] *HI* (08/23/17 10:58 AM) Lymphocytes # 2.0 K/CMM [1.0-5.5 K/CMM] (08/23/17 10:58 AM) Monocytes # [0.0-0.8 0.7 K/CMM K/CMM] (08/23/17 10:58 AM) Eosinophils # 0.2 K/CMM [0.0-0.5 K/CMM] (08/23/17 10:58 AM) Basophils # [0.0-0.2 0.1 K/CMM K/CMM] (08/23/17 10:58 AM) PT [12.0-14.7 13.4 seconds seconds] (08/23/17 10:58 AM) INR [0.85-1.17] 1.02 (08/23/17 10:58 AM) PTT [22.9-35.8 25.6 seconds seconds] (08/23/17 10:58 AM) BACTERIAL - SEROLOGY Most recent to 1 oldest [Reference Range]: MRSA by PCR Negative (08/23/17 6:29 PM) Immunizations No data available for this section [...]
--- OUTSIDE RECORDS SUMMARY | 2018-09-09 12:43 | XMS REPORT | Summary of Care ---
Author Author [facility] Organization [facility] Address Unknown Phone Unavailable Encounter [facility] Raoul(FIN) [id number] Date(s): 04/15/17 - 04/15/17 [facility] [address] [place] [address]- [phone] Discharge Disposition: Home or Self Care Attending Physician: Hope Childers MD Referring Physician: Hope Childers MD Vital Signs No data [...]
--- OUTSIDE RECORDS SUMMARY | 2018-09-09 12:43 | XMS REPORT | Summary of Care ---
Author Author [facility] Organization [facility] Address Unknown Phone Unavailable Encounter [facility] Ra[facility](FIN) [id number] Date(s): 03/09/16 - 03/09/16 [facility] [address] [place] [address]- [phone] Discharge Disposition: Home Attending Physician: Hope Childers MD Referring Physician: [...]
--- OUTSIDE RECORDS SUMMARY | 2018-09-09 12:43 | XMS REPORT | Summary of Care ---
Author Author [facility] Organization [facility] Address Unknown Phone Unavailable Encounter SANTY Silveira(CRYSTAL) [id number] Date(s): 11/04/15 - 11/05/15 [facility] [address] [place] [address]- Discharge Disposition: Home Attending Physician: Joni Wagner MD Admitting Physician: Joni Wagner MD Vital Signs 1 2 3 Most recent to oldest [Reference Range]: 170.18 cm (11/04/15 4:47 PM) 170.18 cm (11/04/15 10:40 AM) Height 98.0 DegF (11/05/15 12:50 PM) 98.2 DegF (11/05/15 8:55 AM) 98.1 DegF (11/05/15 4:21 AM) Temperature Oral [96.4-99.1 DegF] 153/77 mmHg *HI* (11/05/15 12:50 PM) 152/77 mmHg *HI* (11/05/15 8:55 AM) 113/68 mmHg (11/05/15 4:21 AM) Blood Pressure [90-140/60-90 mmHg] 16 BRMIN (11/05/15 12:50 PM) 16 BRMIN (11/05/15 8:55 AM) 18 BRMIN (11/05/15 4:21 AM) Respiratory Rate [14-20 BRMIN] 81 bpm (11/05/15 12:50 PM) 82 bpm (11/05/15 8:55 AM) 83 bpm (11/05/15 4:21 AM) Peripheral Pulse Rate [60-100 bpm] 68.182 kg (11/04/15 4:47 PM) 68.182 kg (11/04/15 10:40 AM) Weight 23.54 m2 (11/04/15 4:47 PM) 23.54 m2 (11/04/15 10:40 AM) Body Mass Index Problem List Condition Effective Dates Status Health Status Informant Arrhythmia(Confirmed Resolved )1 HTN Resolved (hypertension)(Confi rmed) RA (rheumatoid Resolved arthritis)(Confirmed ) 1misfire in the SA node pt states Allergies, Adverse Reactions, Alerts Substance Reaction Severity Status codeine Active iodine Active Medications acetaminophen 650 mg, 2 tab, Route: PO, Drug form: TAB, Q4H, Dosing Weight 68.182, kg, PRN Peggy n 1-3/Temp > 100.4 F, Start date: 11/04/15 13:22:00, Duration: 30 day, Stop date: 12/04/15 13:21:00 Notes: Do not exceed 4 gm/day. (Same as: Tylenol) Start Date: 11/04/15 Stop Date: 11/05/15 Status: Discontinued Cimzia 400 mg, SUB-Q, q4wk, 0 Refill(s) Start Date: 11/04/15 Status: Ordered Diovan 80 mg oral tablet 80 mg=1 tab, PO, BID, 0 Refill(s) Start Date: 11/04/15 Status: Ordered folic acid 2 mg, PO, Daily, 0 Refill(s) Start Date: 11/04/15 Status: Ordered Imodium A-D 2 mg, 1 cap, Route: PO, Drug form: CAP, TID, Dosing Weight 68.182, kg, PRN as ne eded for loose stool, Start date: 11/04/15 21:16:00, Duration: 30 day, Stop date : 12/04/15 21:15:00 Notes: (Same as: Imodium) MAX adult dose is 8 caps/day Start Date: 11/04/15 Stop Date: 11/05/15 Status: Discontinued methotrexate 2.5 mg, PO, qWeek, 0 Refill(s) Start Date: 11/04/15 Status: Ordered Mobic 7.5 mg oral tablet 7.5 mg=1 tab, PO, Daily, 0 Refill(s) Start Date: 11/04/15 Stop Date: 11/05/15 Status: Discontinued morphine Sulfate 2 mg, 1 mL, Route: IVP, Drug form: INJ, Q4H, Dosing Weight 68.182, kg, PRN Pain Score 7-10, Start date: 11/04/15 13:22:00, Duration: 30 day, Stop date: 12/04/15 13:21:00 Notes: (Same as:MORPhine Sulfate) Start Date: 11/04/15 Stop Date: 11/05/15 Status: Discontinued NS (Bolus) IV 2,000 mL, 1,000 ml/hr, Infuse Over: 1 hr, Route: IV, ONCE, Priority: STAT, Dosin g Weight 68.182 kg, Start date: 11/04/15 12:10:00, Duration: 1 doses or times, S top date: 11/04/15 12:10:00 Start Date: 11/04/15 Stop Date: 11/04/15 Status: Completed ondansetron 4 mg, 2 mL, Route: IVP, Drug form: INJ, Q6H, Dosing Weight 68.182, kg, PRN Nause a & Vomiting, Start date: 11/04/15 13:22:00, Duration: 30 day, Stop date: 12/04/15 13:21:00 Notes: (Same as: Sixto) MEDICATION WASTE Product Size: 4 mgProduct Was perfecto: ___ mg Start Date: 11/04/15 Stop Date: 11/05/15 Status: Discontinued ondansetron 4 mg, Route: IVP, Drug form: INJ, ONCE, Dosing Weight 68.182, kg, Priority: STAT , Start date: 11/04/15 10:55:00, Stop date: 11/04/15 10:55:00 Start Date: 11/04/15 Stop Date: 11/04/15 Status: Completed predniSONE 10 mg oral tablet 10 mg=1 tab, PO, Daily, 0 Refill(s) Start Date: 11/04/15 Status: Ordered Saline Flush 0.9% 10 ml, Route: IVP, Drug Form: INJ, Dosing Weight 68.182, kg, PRN, PRN Line Flush , Start date: 11/04/15 13:22:00, Duration: 30 day, Stop date: 12/04/15 13:21:00 Notes: (Same as: BD Posiflush) Start Date: 11/04/15 Stop Date: 11/05/15 Status: Discontinued Sodium Chloride 0.9% (Bolus) IV 1,000 mL, 1,000 ml/hr, Infuse Over: 1 hr, Route: IV, ONCE, Priority: STAT, Dosin g Weight 68.182 kg, Start date: 11/04/15 10:55:00, Duration: 1 doses or times, S top date: 11/04/15 10:55:00 Start Date: 11/04/15 Stop Date: 11/04/15 Status: Completed Sodium Chloride 0.9% IV 1,000 mL 1,000 mL, Rate: 70 ml/hr, Infuse over: 14.3 hr, Route: IV, Dosing Weight 68.182 kg, Total Volume: 1,000, Start date: 11/04/15 13:22:00, Stop date: 12/04/15 13:2 1:00 Start Date: 11/04/15 Stop Date: 11/05/15 Status: Discontinued Tambocor 100 mg oral tablet 100 mg=1 tab, PO, BID, 0 Refill(s) Start Date: 11/04/15 Status: Ordered tramadol 100 mg, PO, PRN, PRN Pain, # 20 tab, 0 Refill(s) Start Date: 11/04/15 Stop Date: 11/08/15 Status: Ordered tramadol 100 mg oral tablet, extended release 100 mg, 2 tab, Route: PO, Drug form: TAB, Q6H, PRN Pain Score 6-10, Start date: 11/04/15 20:44:00, Duration: 30 day, Stop date: 12/04/15 20:43:00 Notes: Not to exceed 400mg/day. (Same As: Ultram) Start Date: 11/04/15 Stop Date: 11/05/15 Status: Discontinued Tylenol 650 mg, 20.3 mL, Route: PO, Drug form: LIQ, ONCE, Dosing Weight 68.182, kg, Star t date: 11/04/15 13:31:00, Stop date: 11/04/15 13:31:00 Notes: Max yduyabxjwswjb=6960un/day (4 gm/day). (Same as: Tylenol) Start Date: 11/04/15 Stop Date: 11/04/15 Status: Completed Results ELECTROLYTES 1 2 3 Most recent to oldest [Reference Range]: 139 mEq/L (11/05/15 5:23 AM) 133 mEq/L *LOW* (11/04/15 11:06 AM) Sodium Lvl [135-145 mEq/L] 4.1 mEq/L (11/05/15:23 AM) 3.7 mEq/L (11/04/15 11:06 AM) Potassium Lvl [3.5-5.1 mEq/L] 109 mEq/L (11/05/15:23 AM) 99 mEq/L (11/04/15 11:06 AM) Chloride Lvl [95-109 mEq/L] 23 mEq/L *LOW* (11/05/15: AM) 28 mEq/L (11/04/15 11:06 AM) CO2 [24-32 mEq/L] 11.1 mEq/L (11/05/15: AM) 9.7 mEq/L *LOW* (11/04/15 11:06 AM) AGAP [10.0-20.0 mEq/L] CHEM PANEL 1 2 3 Most recent to oldest [Reference Range]: 0.89 mg/dL (11/05/15:23 AM) 1.52 mg/dL *HI* (11/04/15 11:06 AM) Creatinine Lvl [0.50-1.40 mg/dL] 65 mL/min/1.73m2 1 *NA* (11/05/15:23 AM) 34 mL/min/1.73m2 2 *NA* (11/04/15 11:06 AM) eGFR 16 mg/dL (11/05/15:23 AM) 25 mg/dL *HI* (11/04/15 11:06 AM) BUN [7-22 mg/dL] 16 (11/04/15 11:06 AM) B/C Ratio [6-25] 74 mg/dL (11/05/15 5:23 AM) 104 mg/dL *HI* (11/04/15 11:06 AM) Glucose Lvl [70-99 mg/dL] 7.6 g/dL (11/04/15 11:06 AM) Total Protein [6.4-8.4 g/dL] 3.6 g/dL (11/04/15 11:06 AM) Albumin Lvl [3.5-5.0 g/dL] 4.0 g/dL (11/04/15 11:06 AM) Globulin [2.0-4.0 g/dL] 0.9 (11/04/15 11:06 AM) A/G Ratio [0.7-1.6] 7.5 mg/dL *LOW* (11/05/15 5:23 AM) 8.6 mg/dL (11/04/15 11:06 AM) Calcium Lvl [8.5-10.5 mg/dL] 33 unit/L (11/04/15 11:06 AM) ALT [0-65 unit/L] 38 unit/L *HI* (11/04/15 11:06 AM) AST [0-37 unit/L] 59 unit/L (11/04/15 11:06 AM) Alk Phos [39-136 unit/L] 0.6 mg/dL (11/04/15 11:06 AM) Bili Total [0.2-1.3 mg/dL] 1.8 mMol/L (11/04/15 11:06 AM) Lactic Acid Lvl [0.5-2.2 mMol/L] 1Result Comment: The eGFR is calculated using [...] be mul tiplied by the estimated BMI. 2Result Comment: The eGFR is calculated using the [...] tiplied by the estimated BMI. CARDIAC ENZYMES 1 2 3 Most recent to oldest [Reference Range]: 969 unit/L *HI* (11/04/15 6:00 PM) 640 unit/L *HI* (11/04/15 12:48 PM) 699 unit/L *HI* (11/04/15 11:06 AM) Total CK [12-191 unit/L] 8.2 ng/mL *HI* (11/04/15 11:06 AM) CK MB [0.5-3.6 ng/mL] 1.2 (11/04/15 11:06 AM) CK MB Index [0.0-2.5] <0.02 ng/mL (11/04/15 11:06 AM) Troponin-I [0.00-0.40 ng/mL] URINE CHEM 1 2 3 Most recent to oldest [Reference Range]: 25 mEq/L *NA* (11/04/15 12:48 PM) U Sodium URINE AND STOOL 1 2 3 Most recent to oldest [Reference Range]: Slight *ABN* (11/04/15 12:48 PM) UA Turbidity [Clear] Yellow *NA* (11/04/15 12:48 PM) UA Color [Yellow] 5.0 (11/04/15 12:48 PM) UA pH [5.0-8.0] 1.013 (11/04/15 12:48 PM) UA Spec Grav [<=1.030] Negative mg/dL *NA* (11/04/15 12:48 PM) UA Glucose [Negative mg/dL] Moderate *ABN* (11/04/15 12:48 PM) UA Blood [Negative] Trace mg/dL *ABN* (11/04/15 12:48 PM) UA Ketones [Negative mg/dL] 30 mg/dL *ABN* (11/04/15 12:48 PM) UA Protein [Negative mg/dL] <=1.0 mg/dL *NA* (11/04/15 12:48 PM) UA Urobilinogen [0.1-1.0 mg/dL] Negative *NA* (11/04/15 12:48 PM) UA Bili [Negative] Negative (11/04/15 12:48 PM) UA Leuk Est [Negative] Negative (11/04/15 12:48 PM) UA Nitrite [Negative] 4 /HPF (11/04/15 12:48 PM) UA WBC [0-5 /HPF] 5 /HPF *HI* (11/04/15 12:48 PM) UA RBC [0-2 /HPF] Occasional /LPF *NA* (11/04/15 12:48 PM) UA Sq Epi [Few /LPF] 33 /LPF *HI* (11/04/15 12:48 PM) UA Hyal Cast [0-2 /LPF] Few /LPF *NA* (11/04/15 12:48 PM) UA Mucus [None Seen /LPF] IMMUNOLOGY 1 2 3 Most recent to oldest [Reference Range]: 83.6 mg/L *HI* (11/05/15 5:23 AM) 121.0 mg/L *HI* (11/04/15 12:48 PM) CRP [<=2.9 mg/L] HEMATOLOGY 1 2 3 Most recent to oldest [Reference Range]: 10.7 K/CMM *HI* (11/05/15 5:23 AM) 14.8 K/CMM *HI* (11/04/15 11:06 AM) WBC [3.7-10.4 K/CMM] 3.96 M/CMM *LOW* (11/05/15 5:23 AM) 5.11 M/CMM (11/04/15 11:06 AM) RBC [4.20-5.40 M/CMM] 12.6 g/dL (11/05/15 5:23 AM) 15.9 g/dL (11/04/15 11:06 AM) Hgb [12.0-16.0 g/dL] 37.5 % (11/05/15 5:23 AM) 48.6 % *HI* (11/04/15 11:06 AM) Hct [36.0-48.0 %] 94.7 fL (11/05/15:23 AM) 95.1 fL (11/04/15 11:06 AM) MCV [80.0-98.0 fL] 31.7 pg *HI* (11/05/15:23 AM) 31.1 pg *HI* (11/04/15 11:06 AM) MCH [27.0-31.0 pg] 33.5 g/dL (11/05/15:23 AM) 32.8 g/dL (11/04/15 11:06 AM) MCHC [32.0-36.0 g/dL] 12.9 % (11/05/15:23 AM) 13.1 % (11/04/15 11:06 AM) RDW [11.5-14.5 %] 270 K/CMM (11/05/15:23 AM) 357 K/CMM (11/04/15 11:06 AM) Platelet [133-450 K/CMM] 7.5 fL (11/05/15:23 AM) 7.2 fL *LOW* (11/04/15 11:06 AM) MPV [7.4-10.4 fL] 51.4 % (11/05/15:23 AM) 67.4 % (11/04/15 11:06 AM) Segs [45.0-75.0 %] 27.2 % (11/05/15 5:23 AM) 14.8 % *LOW* (11/04/15 11:06 AM) Lymphocytes [20.0-40.0 %] 14.1 % *HI* (11/05/15:23 AM) 13.6 % *HI* (11/04/15 11:06 AM) Monocytes [2.0-12.0 %] 6.8 % *HI* (11/05/15:23 AM) 3.7 % (11/04/15 11:06 AM) Eosinophils [0.0-4.0 %] 0.5 % (11/05/15 5:23 AM) 0.5 % (11/04/15 11:06 AM) Basophils [0.0-1.0 %] 5.5 K/CMM (11/05/15 5:23 AM) 10.0 K/CMM *HI* (11/04/15 11:06 AM) Segs-Bands # [1.5-8.1 K/CMM] 2.9 K/CMM (11/05/15 5:23 AM) 2.2 K/CMM (11/04/15 11:06 AM) Lymphocytes # [1.0-5.5 K/CMM] 1.5 K/CMM *HI* (11/05/15 5:23 AM) 2.0 K/CMM *HI* (11/04/15 11:06 AM) Monocytes # [0.0-0.8 K/CMM] 0.7 K/CMM *HI* (11/05/15 5:23 AM) 0.6 K/CMM *HI* (11/04/15 11:06 AM) Eosinophils # [0.0-0.5 K/CMM] 0.1 K/CMM (11/04/15 11:06 AM) Basophils # [0.0-0.2 K/CMM] 15.3 seconds *HI* (11/04/15 11:06 AM) PT [12.0-14.7 seconds] 1.18 *HI* (11/04/15 11:06 AM) INR [0.85-1.17] 34.5 seconds (11/04/15 11:06 AM) PTT [22.9-35.8 seconds] Immunizations No data available for this section Procedures Procedure Date Related Diagnosis Body Site Small bowel resection Social History Social History Type Response Alcohol Never Smoking Status Former smoker; Exposure to Tobacco Smoke None; Cigarette Smoking Last 365 Days No; Reg Smoking Cessation Counseling No Assessment and Plan Extracted from: Title: Clinical Document Author: Amy Lama MD Date: 11/05/15 NEPHROLOGY PROGRESS NOTE AMY LAMA MD SUBJECTIVE: pt feels and looks much better no sob, n/v or cp no new issues overnight OBJECTIVE: Input/Output RecordInOutBal /0224hr Tot 3000 0 3000 /0124hr Tot 0 0 0 Vitals and Temp: VitalsTmp(F)[id number] 11/05 04:2198.497142/214219--- 11/05 00:1298.494950/713766--- 11/04 20:0698.216866/075809--- 11/04 16:0398.923344/152415--- 11/04 14:43----17021/407104--- 24 Hr Tmax: 99.0F (37.22c) at 11/04 12:49Vital Signs are the last 5 in the past 48 hours. EXAM: In no acute distress CHEST: Revealed fair air entry. No significant rales or rhonchi. HEART: S1, S2 with no significant murmurs. ABDOMEN: Soft. Non tender. Bowel sounds are positive. EXTREMITIES: No pedal edema. CENTRAL NERVOUS SYSTEM: Pt. was awake and alert. There was no gross motor deficit noted. LABORATORY DATA: Labs (Last four charted values) WBC H 10.7(NOV 05)H 14.8(NOV 04) Hgb 12.6(NOV 05)15.9(NOV 04) Hct 37.5(NOV 05)H 48.6(NOV 04) Plt 270(NOV 05)357(NOV 04) Na 139(NOV 05)L 133(NOV 04) K 4.1(NOV 05)3.7(NOV 04) CO2 L 23(NOV 05)28(NOV 04) Cl 109(NOV 05)99(NOV 04) Cr 0.89(NOV 05)H 1.52(NOV 04) BUN 16(NOV 05)H 25(NOV 04) Glucose Random 74(NOV 05)H 104(NOV 04) Ca L 7.5(NOV 05)8.6(NOV 04) PT H 15.3(NOV 04) INR H 1.18(NOV 04) PTT 34.5(NOV 04) Troponin <0.02(NOV 04) CK MB H 8.2(NOV 04) Total CK H 969(NOV 04)H 640(NOV 04)H 699(NOV 04) IMPRESSION: ESTER with improved serum creatinine at 0.9 mg/dl from 1.5 yest with good uo Stable lytes and met. profile Stable volume status diarrhea, imp. PLAN: ivf to 70 cc/hr no new/further recommendations will sign off thanks MEDS: Scheduled Meds: None Unscheduled Meds: None PRN Meds (6):acetaminophen, loperamide (Imodium A-D), morphine Sulfate, ondansetron, sodium chloride (Saline Flush 0.9%), tramadol (tramadol 100 mg oral tablet, extended release) One Time Meds (4):(Completed) Sodium Chloride 0.9% IV (Sodium Chloride 0.9% (Bolus) IV), (Completed) Sodium Chloride 0.9% IV (NS (Bolus) IV), (not done) acetaminophen (Tylenol), (Completed) ondansetron Continuous Infusions (1):Sodium Chloride 0.9% IV 1000 mL
--- OUTSIDE RECORDS SUMMARY | 2018-09-09 12:43 | XMS REPORT | Summary of Care ---
Author Author [facility] Address Unknown Phone Unavailable Encounter SANTY Silveira(FIN) [id number] Date(s): 11/07/17 - 12/06/17 [facility] Encounter Diagnosis Unspecified sequelae of other cerebrovascular [...]
--- OUTSIDE RECORDS SUMMARY | 2018-09-09 12:43 | XMS REPORT | Summary of Care ---
Author Author [facility] Organization [facility] Address Unknown Phone Unavailable Encounter [facility] Raoul(FIN) [id number] Date(s): 12/26/17 - 12/26/17 [facility] [address] [place] [address]- Encounter Diagnosis Mastodynia (Final) - 12/30/17 Unspecified lump in the left breast, unspecified quadrant (Final) - Discharge Disposition: Home or Self [...]
--- OUTSIDE RECORDS SUMMARY | 2018-09-09 12:43 | XMS REPORT | Summary of Care ---
Author Organization Unknown Address Unknown Phone Unavailable Encounter [facility] Estherntr_mandoaron(CRYSTAL) [id number] Date(s): 03/17/15 - 03/17/15 [facility] [address] [place] [address]- Final: Other Screening Mammogram Discharge Disposition: Home Physician Attending: Hope Childers [...]
[2018-09-09] MEDS ORDERED: CLOPIDOGREL75 MG PO (12:56)
[2018-09-09] MEDS ORDERED: ATORVASTATIN CA20 MG PO (12:56)
[2018-09-09] MEDS ORDERED: IRBESARTAN75 MG PO (12:56)
[2018-09-09] MEDS ORDERED: ULTRAM50 MG PO (12:56)
[2018-09-09] MEDS ORDERED: VANCOMYCIN 1GM/NS 250 ML 250 ML IV ONE (13:30)
[2018-09-09 13:46] LABS: BASOPHILS # (AUTO) 0.1 (0.0-0.1); BASOPHILS % 0.5 % (0.0-1.0); EOSINOPHILS # (AUTO) 0.1 (0.0-0.4); EOSINOPHILS % 0.8 % (0.0-6.0); HEMATOCRIT 43.9 % (34.2-44.1); HEMOGLOBIN 14.3 g/dL (12.0-16.0); LYMPHOCYTES # (AUTO) 1.6 (1.0-3.2); LYMPHOCYTES % 10.5 % (18.0-39.1); MEAN CORPUSCULAR HEMOGLOBIN 30.7 pg (28-32); MEAN CORPUSCULAR HGB CONC 32.6 g/dL (31-35); MEAN CORPUSCULAR VOLUME 94.2 fL (81-99); MONOCYTES % 6.2 % (4.4-11.3); NEUTROPHILS # (AUTO) 12.6 (2.1-6.9); NEUTROPHILS % 81.4 % (38.7-80.0); PLATELET COUNT 580 x10e3/uL (140-360); RED BLOOD COUNT 4.66 x10e6/uL (3.6-5.1); RED CELL DISTRIBUTION WIDTH 12.9 % (11.7-14.4)
[2018-09-09] MEDS: CEFEPIME HCL 1 GM VIAL IV SCH ×2 (13:50→22:50)
[2018-09-09 14:12] LABS: CREATINE KINASE 63 IU/L (29-168)
[2018-09-09 14:42] LABS: ALBUMIN 3.6 g/dL (3.5-5.0); ALBUMIN/GLOBULIN RATIO 1.2 (0.8-2.0); ANION GAP 16.9 mmol/L (8-16); CALCIUM 9.3 mg/dL (8.4-10.2); CREATININE, SERUM 1.09 mg/dL (0.57-1.11); POTASSIUM 3.9 mmol/L (3.5-5.1)
--- NOTE | 2018-09-09 14:52 | NUR ---
Received report from ER nurse. Patient is coming to room 208.
[2018-09-09] MEDS ORDERED: FLUCONAZOLE 100 MG/NS 50 ML 50 ML IV ONE (15:00)
--- NOTE | 2018-09-09 15:20 | NUR ---
Patient arrived to the floor via wheelchair from the ER. She is awake alert and oriented x3. She is not in any distress. She denies needing anything at this time, oriented her on how to use the call light and to the room. She verbalized understanding. Call light in reach
--- NOTE | 2018-09-09 15:44 | NUR ---
Patient off unit for 2 view chest
[2018-09-09] MEDS ORDERED: TRAMADOL HCL 50 MG TAB PO PRN (15:45)
--- NOTE | 2018-09-09 15:45 | NUR ---
Notified NISHANT Johnson (covering for Thomas) that patient has a fever, BP 170/82, and no medications were ordered or started in the ER except for 2 antibiotics. New orders received.
[2018-09-09] MEDS ORDERED: ALBUTEROL/IPRATROPIUM 3 ML NEB NEB PRN (16:00)
[2018-09-09] MEDS ORDERED: METHOTREXATE SOD 2.5 MG TAB PO SCH (16:00)
--- NOTE | 2018-09-09 16:02 | Diagnostic Imaging Report ---
EXAM: XR CHEST 2 VIEWS DATE: 09/09/2018 2:43 PM INDICATION: Pneumonia COMPARISON: None FINDINGS: Lines and Tubes: Loop recorder left chest wall. Heart and Mediastinum: No acute cardiomediastinal findings. Lungs and Pleura: No significant pleural effusion, pneumothorax, or focal consolidation. Minimal opacities in the lung bases statistically represent atelectasis, however, infectious process could have a similar appearance. Bones and Soft Tissues: No acute findings. IMPRESSION: 1. No acute cardiopulmonary findings. Signed by: Dr. Kojo Coker MD on 09/09/2018 3:59 PM
--- NOTE | 2018-09-09 16:25 | NUR ---
Notified lab that there are blood cultures ordered at 1243 that haven't been drawn, she said she would notify esthetician [facility]
[2018-09-09 16:26] VITALS: BP 164/82
--- NOTE | 2018-09-09 16:45 | NUR ---
Notified pharmacy there is no Diflucan on the floor, they said they took medicine to ER. Called ER to see if they have it. Nurse to check and call me back. Still waiting to give dose.
[2018-09-09] MEDS: FLECAINIDE ACETATE 100 MG TAB PO SCH (17:00)
[2018-09-09] MEDS: IRBESARTAN 150 MG TAB PO SCH (17:01)
[2018-09-09] MEDS: HYDRALAZINE HCL 20 MG/ML VIAL IV PRN (17:01)
--- NOTE | 2018-09-09 17:24 | NUR ---
Left message with Dr. Garcia answering service about consult
--- NOTE | 2018-09-09 17:36 | Consultation ---
DATE OF CONSULTATION: REASON FOR CONSULTATION: Fever. Thank you so much for asking me to see this patient in consult of Dr. Guzman. This patient who is well known to me from before. She does have underlying history of rheumatoid arthritis and the patient comes to my office last couple of weeks with fever and chills for few weeks. The patient is on methotrexate. She is also on prednisone and she is on Orencia. The patient who also have history of hypertension, hypercholesterolemia, rheumatoid arthritis, left CVA with left-sided weakness, but feeling better, comes in with fever and chills for the last few weeks. Patient as an outpatient had chest x-ray, which was negative. She had CBC and blood cultures all negative. She was referred to me because she was not getting any better antibiotic. Because she is immunocompromised, I sent her to do CT abdomen, pelvis, and chest. CT of the chest was abnormal suggestive of chronic infection so the patient is to be admitted because she continued to have fever and not feeling well. The patient has been on oral antibiotic and then IV Keflex without any improvement. She was sent to the emergency room where she was evaluated and is going to be admitted. Her pulmonary doctor is Dr. Garcia. PHYSICAL EXAMINATION GENERAL: She is currently alert, oriented, does not seem to be in any acute distress. VITAL SIGNS: Stable. Afebrile. HEENT: She is not icteric. NECK: Supple. CHEST: Clear. HEART: S1 and S2 with murmur. ABDOMEN: Soft. Bowel sounds present. No tenderness. EXTREMITIES: No edema. SKIN: There is no rash. LABORATORY DATA: Still pending when I saw her in the emergency room. IMPRESSION AND PLAN: Fever in a patient who is immunocompromised with abnormal CAT scan. Recommend blood cultures and sputum cultures. Pulmonary consultation evaluation for bronchoscopy and sent for AFB and fungal. Discussed with the Dr. Darryl Mackay who is covering for Dr. Garcia. Discussed with the patient. Discussed with the ER physician. We will follow with you. Job#: [id number] SUMAN
--- NOTE | 2018-09-09 17:38 | NUR ---
Notified pharmacy that Diflucan was never received from the ER and patient still needs dose.
[2018-09-09 17:42] VITALS: BP 170/82
--- NOTE | 2018-09-09 19:08 | NUR ---
Patient visited in room during nursing rounds. Patient alert and oriented x3. Patient breath on room air and denies discomfort at this time. Patient has intermittent coughing and fever. Patient on scheduled IV antibiotics. Pt ambulatory prn. Will monitor closely.
[2018-09-09 20:00] VITALS: BP_SYST 125; BP_SYST 182; BP_DIAS 79; BP_DIAS 97
[2018-09-09] MEDS: ATORVASTATIN 40 MG TAB PO SCH (21:07)
[2018-09-09 22:18] LABS: CREATINE KINASE 56 IU/L (29-168)
[2018-09-09] MEDS ORDERED: SODIUM CHLORIDE 0.9% 50ML 50 ML ONE (22:30)
[2018-09-09] MEDS: ACETAMINOPHEN 325 MG TAB PO PRN (22:40)
[2018-09-10] VITALS (7 sets, daily range): BP systolic 136–178; BP diastolic 66–83
[2018-09-10 05:25] LABS: CREATINE KINASE 49 IU/L (29-168)
[2018-09-10] MEDS ORDERED: SODIUM CHLORIDE 0.9% 50ML 50 ML ONE ×2 (06:23→22:12)
[2018-09-10] MEDS: CEFEPIME HCL 1 GM VIAL IV SCH ×3 (06:48→22:29)
[2018-09-10] MEDS ORDERED: AMITRIPTYLINE HCL 25 MG TAB PO SCH (09:00)
[2018-09-10] MEDS: MELOXICAM 7.5 MG TAB PO SCH (09:12)
[2018-09-10] MEDS: IRBESARTAN 150 MG TAB PO SCH ×2 (09:12→16:34)
[2018-09-10] MEDS: FLECAINIDE ACETATE 100 MG TAB PO SCH ×2 (09:12→16:34)
[2018-09-10] MEDS: CLOPIDOGREL BISULFATE 75 MG TAB PO SCH (09:12)
[2018-09-10] MEDS: PREDNISONE 5 MG TAB PO SCH (09:12)
[2018-09-10] MEDS ORDERED: ONDANSETRON HCL INJ 2 MG/ML VIAL IV PRN (11:15)
[2018-09-10 11:38] LABS: BASOPHILS # (AUTO) 0.1 (0.0-0.1); BASOPHILS % 0.6 % (0.0-1.0); EOSINOPHILS # (AUTO) 0.5 (0.0-0.4); EOSINOPHILS % 3.5 % (0.0-6.0); HEMATOCRIT 43.4 % (34.2-44.1); HEMOGLOBIN 13.9 g/dL (12.0-16.0); LYMPHOCYTES # (AUTO) 3.2 (1.0-3.2); MEAN CORPUSCULAR HEMOGLOBIN 31.2 pg (28-32); MEAN CORPUSCULAR VOLUME 97.3 fL (81-99); MONOCYTES # (AUTO) 1.6 (0.2-0.8); MONOCYTES % 10.9 % (4.4-11.3); NEUTROPHILS % 62.3 % (38.7-80.0); PLATELET COUNT 542 x10e3/uL (140-360); RED BLOOD COUNT 4.46 x10e6/uL (3.6-5.1); RED CELL DISTRIBUTION WIDTH 12.9 % (11.7-14.4)
[2018-09-10 11:48] LABS: ANION GAP 15.9 mmol/L (8-16); CREATININE, SERUM 0.93 mg/dL (0.57-1.11); POTASSIUM 3.9 mmol/L (3.5-5.1)
[2018-09-10 12:10] LABS: EOSINOPHILS % (MANUAL) 2 % (0-7); LYMPHOCYTES % (MANUAL) 24 % (19-48); MONOCYTES % (MANUAL) 12 % (3.4-9.0); NEUTROPHILS % (MANUAL) 62 % (40-74); PLATELET ESTIMATE MODERATELY INCREASED; PLATELET MORPHOLOGY COMMENT NORMAL; RBC MORPHOLOGY COMMENT NORMAL
[2018-09-10] MEDS: HYDRALAZINE HCL 20 MG/ML VIAL IV PRN (12:30)
[2018-09-10] MEDS: DEXTROSE 5%/0.9% SOD CHL 1,000 ML IV SCH (12:30)
--- NOTE | 2018-09-10 12:30 | NUR ---
Report received from Aylin Deutsch RN on patient's status. AAOX4 to time, person, place, situation. Respirations even and unlabored. Tele [id number] SR. SCD placed as ordered. Instructed patient to use call light for assistance.
[2018-09-10 13:13] LABS: BILIRUBIN,URINE NEGATIVE (NEGATIVE); CLARITY,URINE CLEAR (CLEAR); COLOR,URINE YELLOW (YELLOW); KETONES,URINE NEGATIVE (NEGATIVE); LEUKOCYTE ESTERASE ,URINE NEGATIVE (NEGATIVE); NITRITE,URINE NEGATIVE (NEGATIVE); PROTEIN,URINE DIPSTICK NEGATIVE (NEGATIVE); URINE UROBILINOGEN 0.2 mg/dL (0.2 - 1)
[2018-09-10 13:21] LABS: EPITHELIAL CELLS,URINE RARE /LPF
--- NOTE | 2018-09-10 14:36 | NUR ---
[facility] INITIAL ASSESSMENT CM to bedside to discuss plan of care with patient/family. CM role and care transitions discussed along with duration of care. Discussed patient's rights to make decisions of care. CM work hours given. PCP: Dr. Hope Childers ADMIT/TRANSFER: ER POA/EMERGENCY CONTACT: Daughter in law, Adelaida Meredith [phone]. Confirmed demographic information. Pt also gave her cell number: [phone] CURRENT/PREVIOUS HOME HEALTH: None OTHER SERVICES: None EMPLOYMENT STATUS: Retired AREAS OF CONCERN: Waiting on her physician to round. She understood she may need a bronchoscopy, and wants an update. REFERRAL NEEDS: None at this time EDUCATION NEEDS: None at this time IMM?MAZARIEGOS GIVEN AND SIGNED IF NEEDED: Not needed GOAL FOR DC: Plans to return home with no needs CONTACT INFO ON BOARD: Yes VERBALIZED UNDERSTANDING OF DISCUSSION: Yes CM WILL FOLLOW-UP WITH ONGOING DISCHARGE AND TRANSITION OF CARE NEEDS.
--- NOTE | 2018-09-10 15:25 | NUR ---
spoke with oncall doctor and reminded of consult for . states "at this time no one can see patient, have them consult someone else"
[2018-09-10] MEDS: GUAIFENESIN 600 MG TAB PO SCH (16:34)
--- NOTE | 2018-09-10 17:24 | NUR ---
Paged at [phone] to notify unable to see patient. Repaged at [phone] Awaiting for call back
--- NOTE | 2018-09-10 18:29 | NUR ---
Resting in bed. No s/s of acute distress noted. Report to be given to oncoming nurse.
--- NOTE | 2018-09-10 19:07 | NUR ---
Patient visited in room during nursing rounds. Patient alert and oriented x3. Patient breath on room air and denies discomfort at this time. Patient on IVF and scheduled IV antibiotics. Patient stated she feels better today than yesterday. Pt ambulatory prn. Will monitor closely.
[2018-09-10] MEDS: AMITRIPTYLINE HCL 25 MG TAB PO SCH (20:15)
[2018-09-10] MEDS: ATORVASTATIN 40 MG TAB PO SCH (20:15)
[2018-09-11] VITALS (7 sets, daily range): BP systolic 139–175; BP diastolic 72–94
[2018-09-11] MEDS: ACETAMINOPHEN 325 MG TAB PO PRN (00:35)
[2018-09-11 04:15] LABS: BASOPHILS # (AUTO) 0.1 (0.0-0.1); BASOPHILS % 0.7 % (0.0-1.0); EOSINOPHILS # (AUTO) 0.6 (0.0-0.4); EOSINOPHILS % 3.6 % (0.0-6.0); HEMATOCRIT 40.7 % (34.2-44.1); HEMOGLOBIN 13.4 g/dL (12.0-16.0); LYMPHOCYTES # (AUTO) 3.2 (1.0-3.2); LYMPHOCYTES % 20.2 % (18.0-39.1); MEAN CORPUSCULAR HEMOGLOBIN 31.5 pg (28-32); MEAN CORPUSCULAR HGB CONC 32.9 g/dL (31-35); MEAN CORPUSCULAR VOLUME 95.8 fL (81-99); MONOCYTES # (AUTO) 1.7 (0.2-0.8); MONOCYTES % 10.7 % (4.4-11.3); NEUTROPHILS # (AUTO) 10.2 (2.1-6.9); NEUTROPHILS % 64.4 % (38.7-80.0); PLATELET COUNT 504 x10e3/uL (140-360); RED BLOOD COUNT 4.25 x10e6/uL (3.6-5.1)
[2018-09-11 04:37] LABS: ANION GAP 9.8 mmol/L (8-16); BLOOD UREA NITROGEN 14 mg/dL (7-26); BUN/CREATININE RATIO 16 (6-25); CALCIUM 8.6 mg/dL (8.4-10.2); CARBON DIOXIDE 25 mmol/L (22-29); CHLORIDE 108 mmol/L (98-107); EST GLOMERULAR FILTRATION RATE > 60 ML/MIN (60-); GLUCOSE 89 mg/dL (74-118); MAGNESIUM 2.2 MG/DL (1.3-2.1); POTASSIUM 3.8 mmol/L (3.5-5.1); SODIUM 139 mmol/L (136-145)
[2018-09-11] MEDS ORDERED: SODIUM CHLORIDE 0.9% 50ML 50 ML ONE (06:01)
[2018-09-11] MEDS: CEFEPIME HCL 1 GM VIAL IV SCH ×2 (06:47→14:00)
[2018-09-11] MEDS: DEXTROSE 5%/0.9% SOD CHL 1,000 ML IV SCH (07:15)
[2018-09-11] MEDS: GUAIFENESIN 600 MG TAB PO SCH ×2 (09:00→17:42)
[2018-09-11] MEDS: PREDNISONE 5 MG TAB PO SCH (09:00)
[2018-09-11] MEDS: FLECAINIDE ACETATE 100 MG TAB PO SCH ×2 (09:00→17:43)
[2018-09-11] MEDS: MELOXICAM 7.5 MG TAB PO SCH (09:00)
[2018-09-11] MEDS: IRBESARTAN 150 MG TAB PO SCH ×2 (09:00→17:42)
[2018-09-11] MEDS: CLOPIDOGREL BISULFATE 75 MG TAB PO SCH (09:00)
--- NOTE | 2018-09-11 13:50 | NUR ---
A/C TO PT PAGED DR MOODY TO KNOW THAT WHAT TIME THE DR COMING TO SEE THE PT
--- NOTE | 2018-09-11 16:43 | Consultation ---
DATE OF CONSULTATION: PULMONARY CONSULTATION REASON FOR CONSULT: Abnormal CT chest. CHIEF COMPLAINT: Fever going on for almost a month. HISTORY OF PRESENT ILLNESS: Ms. Goins is a 78-year-old female. She has a history of rheumatoid arthritis on methotrexate, Orencia and steroids for many years. Presented with fever for almost a month. Patient was seen by Dr. Dillon for infectious disease consultation. A CT of the chest was done on September 05, 2018, by her regular airport baggage screener, Dr. Garcia, which showed a rheumatoid nodule which is stable. 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 However, it is showing some areas of tree-in-bud opacities. Since the patient is immunocompromised and running fever, these were of concern. She denies any complaints of chest pain, nausea, vomiting. She has been a smoker. She quit smoking 12 years ago, smoked for 25+ years. REVIEW OF SYSTEMS: GENERAL: Was having fever and chills. HEAD: Denies any head trauma. ENT: Denies any earache. CVS: Denies any chest pain. RESPIRATORY: No shortness of breath. GI: Denies any nausea, vomiting. REST OF THE REVIEW OF SYSTEMS: Negative except as in history of present illness. PAST MEDICAL HISTORY: Rheumatoid arthritis, hypercholesterolemia, history of left CVA in the past. PAST SURGICAL HISTORY: Laparoscopic cholecystectomy. FAMILY AND SOCIAL HISTORY: She is an ex-smoker, quit smoking 12 years ago, 23 years of smoking. 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 She is a . PHYSICAL EXAMINATION: VITALS: Temperature 98.5, pulse of 81, blood pressure 139/72, respiratory rate of 18. O2 sat 97%. HEENT: Head atraumatic, normocephalic. NECK: Supple. CHEST: No crackles, no wheezing. HEART: S1/S2 audible. ABDOMEN: Soft, nontender and nondistended. EXTREMITIES: No clubbing, cyanosis or edema. NEUROLOGIC: Awake and alert. Following command. No focal neurologic deficit. LABORATORY DATA: White count of 15,000, hemoglobin 13.4, platelets 504. Chemistry: Sodium 139, potassium 3.8, chloride 108, BUN 14, creatinine 0.9. Troponin is negative. CT of the chest done on September 05. I have reviewed the images, and there are tree-in-bud opacities and dependent right upper lobe stable pulmonary nodules measuring up to 7 mm, which is stable since 2015. ASSESSMENT: Ms. Goins is a 78-year-old female with tree-in-bud opacities, immunocompromised, running fever, leukocytosis. Concerns for atypical infection, Mycobacterium versus fungal versus actinomycosis. A detailed discussion was carried out with Dr. Dillon. PLAN: 1. I will do a bronchoscopy will BAL. Biopsy cannot be done. Patient is on Plavix. 2. Continue oxygen as needed. 3. IV antibiotics per infectious disease recommendation. Thank you for this consult. Job#: [id number]
--- NOTE | 2018-09-11 17:53 | NUR ---
Nutrition Screen Note RD Recommendation for Physician: -Continue cardiac diet as ordered The patient meets criteria for MODERATE protein-calorie malnutrition. 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 Labs and meds reviewed. 78yo F, who is admitted for fever and chills for the past few weeks. During my visit, pt reports of improved appetite with ~75-100% recorded PO intake. No GI complains noted. LBM 09/09. Pt denies any chewing or swallowing difficulty. 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 No physical sign of malnutrition upon observation. Will continue to monitor and follow. Current Diet: regular diet Malnutrition Evaluation (09/11) The patient meets criteria for MODERATE protein-calorie malnutrition. Energy intake: <75% of estimated energy requirements for >7 days, moderate Weight loss: ~6% in 2 weeks, severe No physical sign of malnutrition upon observation. Diet Education Needs Assessment: Diet education not indicated. Nutrition Care Level: low Signed: Chetna Clarke, MS, RD, LD
--- NOTE | 2018-09-11 18:43 | NUR ---
PT RESTING ON BED NPO AFTER MID NIGHT CONSENT SIGNED BED SIDE REPORT GIVEN TO ONCOMING NURSE
--- NOTE | 2018-09-11 19:00 | NUR ---
PT IS ALERT AND ORIENTED RESTING ON BED. NO S/S OF ANY DISTRESS NOTED. CALL LIGHT IN REACH. BED ALARM REFUSED.
[2018-09-11] MEDS: ATORVASTATIN 40 MG TAB PO SCH (21:44)
[2018-09-11] MEDS: AMITRIPTYLINE HCL 25 MG TAB PO SCH (21:44)
[2018-09-11] MEDS: CEFEPIME 1GM/NS 0.9% 50 ML 50 ML IV SCH (21:45)
[2018-09-12] VITALS (10 sets, daily range): BP systolic 122–182; BP diastolic 62–76
[2018-09-12 03:50] LABS: BASOPHILS # (AUTO) 0.1 (0.0-0.1); BASOPHILS % 0.8 % (0.0-1.0); EOSINOPHILS # (AUTO) 0.6 (0.0-0.4); EOSINOPHILS % 3.5 % (0.0-6.0); HEMATOCRIT 42.3 % (34.2-44.1); HEMOGLOBIN 13.8 g/dL (12.0-16.0); LYMPHOCYTES # (AUTO) 3.3 (1.0-3.2); LYMPHOCYTES % 19.8 % (18.0-39.1); MEAN CORPUSCULAR HEMOGLOBIN 31.4 pg (28-32); MEAN CORPUSCULAR HGB CONC 32.6 g/dL (31-35); MEAN CORPUSCULAR VOLUME 96.1 fL (81-99); MONOCYTES # (AUTO) 1.7 (0.2-0.8); MONOCYTES % 10.1 % (4.4-11.3); NEUTROPHILS # (AUTO) 10.9 (2.1-6.9); NEUTROPHILS % 65.2 % (38.7-80.0); PLATELET COUNT 487 x10e3/uL (140-360); RED CELL DISTRIBUTION WIDTH 12.8 % (11.7-14.4)
[2018-09-12 04:09] LABS: ANION GAP 12.3 mmol/L (8-16); BLOOD UREA NITROGEN 19 mg/dL (7-26); BUN/CREATININE RATIO 22 (6-25); CALCIUM 8.7 mg/dL (8.4-10.2); CARBON DIOXIDE 23 mmol/L (22-29); CHLORIDE 109 mmol/L (98-107); CREATININE, SERUM 0.86 mg/dL (0.57-1.11); EST GLOMERULAR FILTRATION RATE > 60 ML/MIN (60-); GLUCOSE 84 mg/dL (74-118); MAGNESIUM 2.2 MG/DL (1.3-2.1); POTASSIUM 4.3 mmol/L (3.5-5.1); SODIUM 140 mmol/L (136-145)
[2018-09-12] MEDS: CEFEPIME 1GM/NS 0.9% 50 ML 50 ML IV SCH ×4 (04:51→21:36)
[2018-09-12 06:43] LABS: BAND NEUTROPHILS % (MANUAL) 5 %; EOSINOPHILS % (MANUAL) 1 % (0-7); LYMPHOCYTES % (MANUAL) 17 % (19-48); MONOCYTES % (MANUAL) 15 % (3.4-9.0); NEUTROPHILS % (MANUAL) 61 % (40-74); PLATELET ESTIMATE MODERATELY INCREASED; PLATELET MORPHOLOGY COMMENT NORMAL; RBC MORPHOLOGY COMMENT NORMAL
--- NOTE | 2018-09-12 07:00 | NUR ---
RECEIVED PATIENT FROM OUTGOING NURSE. PATIENT IS ALERT AND VERBAL. STILL ON NPO FOR BRONCHOSCOPY PROCEDURE TODAY.
[2018-09-12] MEDS: IRBESARTAN 150 MG TAB PO SCH ×2 (07:30→17:03)
[2018-09-12] MEDS: GUAIFENESIN 600 MG TAB PO SCH ×2 (09:00→17:03)
[2018-09-12] MEDS: FLECAINIDE ACETATE 100 MG TAB PO SCH ×2 (09:00→17:03)
--- NOTE | 2018-09-12 10:12 | NUR ---
rechecked bp 153/73 mm/hg
[2018-09-12] MEDS ORDERED: EPINEPHRINE HCL INJ 1 MG/ML AMP ONE (11:28)
[2018-09-12] MEDS ORDERED: ACETYLCYSTEINE 200 MG/ML 4ML VIAL ONE (11:28)
[2018-09-12] MEDS ORDERED: LIDOCAINE HCL 4% 50 ML BTL ONE (11:28)
[2018-09-12] MEDS ORDERED: LIDOCAINE JELLY 2% 10ML URO-JET ONE (11:29)
[2018-09-12] MEDS ORDERED: OXYMETAZOLINE HCL 0.05% NAS 1 SPRAY BTL ONE (11:29)
[2018-09-12] MEDS ORDERED: ONDANSETRON HCL INJ 2 MG/ML VIAL ONE (12:15)
[2018-09-12] MEDS ORDERED: METOCLOPRAMIDE HCL 10 MG/2ML VIAL ONE (12:15)
--- NOTE | 2018-09-12 12:40 | NUR ---
PT BACK AFTER PROCEDURE PT IS ALERT AND ORIENTED VITALS CHECKED PT RESTING ON BED VITALS CHECKED FAMILY AT BED SIDE
--- NOTE | 2018-09-12 12:55 | Operative Report ---
DATE OF PROCEDURE: PREPROCEDURE DIAGNOSIS: Abnormal computed tomography chest. POSTPROCEDURE DIAGNOSIS: Normal endobronchial airways, thin secretions. PROCEDURE DETAILS: Bronchoscope was advanced through the oral cavity. Vocal cord was normally moving. Trachea was examined. Both lungs were examined until segmental level. Right upper lobe, middle lobe, lower lobe appear normal. Left upper lobe, lingula and lower lobe appeared normal. No endobronchial lesion was seen. BAL and bronchial washing were done from right upper lobe and middle lobe and sent for Gram stain, culture, Chlamydia, mycoplasma, AFB, fungus and cytology. Patient tolerated the procedure well. COMPLICATIONS: None. Job#: [id number]
[2018-09-12 13:36] LABS: BODY FLUID APPEARANCE SL.CLOUDY; BODY FLUID COLOR COLORLESS
[2018-09-12 13:41] LABS: RBC,BODY FLUID 142 cells/uL; WBC,BODY FLUID 48 cells/uL
[2018-09-12 13:54] LABS: BODY FLUID TYPE PLEURAL
[2018-09-12] MEDS ORDERED: PROPOFOL IV EMULSION 10 MG/ML 20 ML VIAL ONE (15:02)
[2018-09-12] MEDS ORDERED: SODIUM CHLORIDE 0.9% 250ML 250 ML ONE (15:27)
[2018-09-12] MEDS: MELOXICAM 7.5 MG TAB PO SCH (15:40)
[2018-09-12] MEDS: PREDNISONE 5 MG TAB PO SCH (15:41)
[2018-09-12] MEDS: CLOPIDOGREL BISULFATE 75 MG TAB PO SCH (15:41)
[2018-09-12 17:47] LABS: LYMPHOCYTES,BODY FLUID 15 %; MONO/MACROPHG,BODY FLUID 78 %; NEUTROPHILS,BODY FLUID 7 %
--- NOTE | 2018-09-12 18:51 | NUR ---
PT RESTING ON BED BED SIDE REPORT GIVEN TO ONCOMING NURSE
--- NOTE | 2018-09-12 19:00 | NUR ---
RECEIVED PT IN BED RESTING WELL. NO S/S OF RESP DISTRESS. CALL LIGHT WITHIN REACH.
--- NOTE | 2018-09-12 19:00 | NUR ---
PT IS ALERT AND ORIENTED RESTING ON BED. NO S/S OF ANY DISTRESS NOTED. CALL LIGHT IN REACH. BED ALARM REFUSED.
[2018-09-12] MEDS: AMITRIPTYLINE HCL 25 MG TAB PO SCH (20:44)
[2018-09-12] MEDS: ATORVASTATIN 40 MG TAB PO SCH (20:44)
--- NOTE | 2018-09-12 22:00 | NUR ---
RECEIVED ORDERS TO D/C TELE
[2018-09-13] VITALS (8 sets, daily range): BP systolic 114–159; BP diastolic 64–84
[2018-09-13 04:48] LABS: BASOPHILS # (AUTO) 0.1 (0.0-0.1); BASOPHILS % 0.5 % (0.0-1.0); EOSINOPHILS # (AUTO) 0.5 (0.0-0.4); HEMATOCRIT 41.7 % (34.2-44.1); HEMOGLOBIN 13.3 g/dL (12.0-16.0); LYMPHOCYTES # (AUTO) 2.8 (1.0-3.2); LYMPHOCYTES % 12.4 % (18.0-39.1); MEAN CORPUSCULAR HEMOGLOBIN 30.9 pg (28-32); MEAN CORPUSCULAR HGB CONC 31.9 g/dL (31-35); MONOCYTES # (AUTO) 1.6 (0.2-0.8); NEUTROPHILS # (AUTO) 17.4 (2.1-6.9); NEUTROPHILS % 77.6 % (38.7-80.0); PLATELET COUNT 480 x10e3/uL (140-360); RED CELL DISTRIBUTION WIDTH 12.8 % (11.7-14.4)
[2018-09-13 05:09] LABS: ANION GAP 13.7 mmol/L (8-16); CALCIUM 9.3 mg/dL (8.4-10.2); CREATININE, SERUM 0.96 mg/dL (0.57-1.11); MAGNESIUM 2.3 MG/DL (1.3-2.1); POTASSIUM 4.7 mmol/L (3.5-5.1)
[2018-09-13] MEDS: CEFEPIME 1GM/NS 0.9% 50 ML 50 ML IV SCH ×3 (05:10→22:45)
[2018-09-13 06:13] LABS: BAND NEUTROPHILS % (MANUAL) 4 %; EOSINOPHILS % (MANUAL) 7 % (0-7); LYMPHOCYTES % (MANUAL) 9 % (19-48); MONOCYTES % (MANUAL) 7 % (3.4-9.0); NEUTROPHILS % (MANUAL) 73 % (40-74)
[2018-09-13 06:14] LABS: ANISOCYTOSIS S; PLATELET ESTIMATE SLIGHTLY INCREASED; PLATELET MORPHOLOGY COMMENT NORMAL; POIKILOCYTOSIS S; RBC MORPHOLOGY COMMENT NORMAL
[2018-09-13] MEDS: GUAIFENESIN 600 MG TAB PO SCH ×2 (09:04→17:27)
[2018-09-13] MEDS: IRBESARTAN 150 MG TAB PO SCH ×2 (09:04→17:27)
[2018-09-13] MEDS: MELOXICAM 7.5 MG TAB PO SCH (09:04)
[2018-09-13] MEDS: CLOPIDOGREL BISULFATE 75 MG TAB PO SCH (09:05)
[2018-09-13] MEDS: PREDNISONE 5 MG TAB PO SCH (09:05)
[2018-09-13] MEDS: FLECAINIDE ACETATE 100 MG TAB PO SCH ×2 (09:08→17:28)
--- NOTE | 2018-09-13 11:16 | NUR ---
IMM delivered and explained to pt. She verbalized understanding. signed copy in chart. copy to pt
[2018-09-13] MEDS ORDERED: METHOTREXATE SOD 2.5 MG TAB PO SCH (16:00)
--- NOTE | 2018-09-13 16:19 | Discharge Summary ---
ADMISSION DIAGNOSES 1. Pneumonia, failed outpatient. 2. Hypertension. 3. Rheumatoid arthritis. 4. Arrhythmia. 5. Acute kidney injury versus chronic kidney disease. 6. Thrombocytosis. 7. Cerebrovascular accident with left hemiparesis. 8. Poor appetite. DISCHARGE DIAGNOSES 1. Pneumonia, failed outpatient. 2. Hypertension. 3. Rheumatoid arthritis. 4. Arrhythmia. 5. Acute kidney injury versus chronic kidney disease. 6. Thrombocytosis. 7. Cerebrovascular accident with left hemiparesis. 8. Poor appetite. 9. Ruled out chronic kidney disease. Dictated By: Elizabeth Reyes NP DICTATION CANCELLED (0:44) JEREMIAH BILLINGS MD Job#: [id number] CQ
--- NOTE | 2018-09-13 17:00 | NUR ---
Spoke to ID related to increase WBC this am. ID states that they will repeat CBC in am and if WBC improve possible discharge from ID in am. Attending informed.
--- NOTE | 2018-09-13 19:15 | NUR ---
Received patient awake on bed, alert, not in distress, no complaints of pain at this time. Call light within reached, advised to call for assistance when needed, will continue to monitor.
[2018-09-13] MEDS: AMITRIPTYLINE HCL 25 MG TAB PO SCH (22:08)
[2018-09-13] MEDS: ATORVASTATIN 40 MG TAB PO SCH (22:08)
--- NOTE | 2018-09-13 22:45 | NUR ---
IV inserted to the left forearm 22 G.
[2018-09-14 01:08] VITALS: BP 122/78
[2018-09-14 03:47] LABS: BASOPHILS # (AUTO) 0.1 (0.0-0.1); BASOPHILS % 0.8 % (0.0-1.0); EOSINOPHILS # (AUTO) 0.6 (0.0-0.4); EOSINOPHILS % 4.3 % (0.0-6.0); HEMATOCRIT 41.1 % (34.2-44.1); HEMOGLOBIN 13.4 g/dL (12.0-16.0); LYMPHOCYTES # (AUTO) 3.3 (1.0-3.2); LYMPHOCYTES % 22.7 % (18.0-39.1); MEAN CORPUSCULAR HGB CONC 32.6 g/dL (31-35); MEAN CORPUSCULAR VOLUME 95.1 fL (81-99); MONOCYTES # (AUTO) 1.6 (0.2-0.8); MONOCYTES % 10.6 % (4.4-11.3); NEUTROPHILS # (AUTO) 8.9 (2.1-6.9); NEUTROPHILS % 61.1 % (38.7-80.0); PLATELET COUNT 457 x10e3/uL (140-360); RED BLOOD COUNT 4.32 x10e6/uL (3.6-5.1); RED CELL DISTRIBUTION WIDTH 12.7 % (11.7-14.4)
[2018-09-14 04:01] LABS: ANION GAP 14.1 mmol/L (8-16); BLOOD UREA NITROGEN 20 mg/dL (7-26); BUN/CREATININE RATIO 23 (6-25); CALCIUM 8.7 mg/dL (8.4-10.2); CARBON DIOXIDE 23 mmol/L (22-29); CHLORIDE 106 mmol/L (98-107); CREATININE, SERUM 0.86 mg/dL (0.57-1.11); EST GLOMERULAR FILTRATION RATE > 60 ML/MIN (60-); GLUCOSE 89 mg/dL (74-118); MAGNESIUM 2.2 MG/DL (1.3-2.1); POTASSIUM 4.1 mmol/L (3.5-5.1); SODIUM 139 mmol/L (136-145)
[2018-09-14] MEDS: CEFEPIME 1GM/NS 0.9% 50 ML 50 ML IV SCH (05:45)
[2018-09-14 06:10] VITALS: BP 139/60
[2018-09-14 07:17] LABS: LYMPHOCYTES % (MANUAL) 19 % (19-48); MONOCYTES % (MANUAL) 4 % (3.4-9.0); NEUTROPHILS % (MANUAL) 77 % (40-74)
[2018-09-14 07:18] LABS: ANISOCYTOSIS MODERATE; PLATELET ESTIMATE ADEQUATE; PLATELET MORPHOLOGY COMMENT FEW LARGE; RBC MORPHOLOGY COMMENT NORMAL
[2018-09-14 08:00] VITALS: BP 133/91
[2018-09-14] MEDS: IRBESARTAN 150 MG TAB PO SCH (08:21)
[2018-09-14] MEDS: MELOXICAM 7.5 MG TAB PO SCH (08:21)
[2018-09-14] MEDS: GUAIFENESIN 600 MG TAB PO SCH (08:21)
[2018-09-14] MEDS: PREDNISONE 5 MG TAB PO SCH (08:21)
[2018-09-14] MEDS: CLOPIDOGREL BISULFATE 75 MG TAB PO SCH (08:21)
[2018-09-14] MEDS: FLECAINIDE ACETATE 100 MG TAB PO SCH (08:21)
[2018-09-14 08:22] VITALS: BP 133/91
[2018-09-14 11:30] VITALS: BP 154/92
--- NOTE | 2018-09-14 11:44 | NUR ---
Pt discharged to home at this time. Antibiotics called into pharmacy of patient's choice per infectious disease. Pt verbalized understanding of discharge orders. Aox4 at time of discharge.
--- NOTE | 2018-09-14 19:42 | Discharge Summary ---
ADMISSION DIAGNOSES 1. Pneumonia, failed outpatient. 2. Hypertension. 3. Rheumatoid arthritis. 4. Arrhythmia. 5. Acute kidney injury versus chronic kidney disease. 6. Thrombocytosis. 7. Cerebrovascular accident with left hemiparesis. 8. Poor appetite. DISCHARGE DIAGNOSES 1. Pneumonia, failed outpatient. 2. Hypertension. 3. Rheumatoid arthritis. 4. Arrhythmia. 5. Acute kidney injury versus chronic kidney disease. 6. Thrombocytosis. 7. Cerebrovascular accident with left hemiparesis. 8. Poor appetite. HISTORY: Patient has a history of hypertension, rheumatoid arthritis, CVA with left hemiparesis, arrhythmia, diverticulitis. SURGICAL HISTORY: Left colectomy, hysterectomy. FAMILY HISTORY: Patient's mom had cancer. SOCIAL HISTORY: Patient denies current alcohol, tobacco, and illicit drug use. She does admit to quitting smoking over 10 years ago. HOSPITAL COURSE: A 78-year-old female admitted for fever, chills, and wheezing since 08/29/2018. On 08/30/2018, she went to her primary care and was prescribed Keflex and chest x-ray was done, which was negative. She admits to having a fever of 100 daily since 08/29/2018. After not feeling better, she went to Dr. Dillon, who did a CT of the chest and prescribed Rocephin daily. After a few days, she still did not feel better, so she was advised to come to the ER. On admission, she was given cefepime, vancomycin, and fluconazole x1. Pulmonary was consulted. Chest x-ray was negative. Blood cultures negative. Urine culture negative. On 09/12/2018, patient had a bronch, which appeared normal per pulmonary note. Patient had washings done. Preliminary report was pending at time of discharge. Per ID, patient was given Augmentin and a Z-pack. The Gram stain for the bronch washings came back with gram-positive cocci in pairs and clusters. The culture was usual respiratory delbert present. AFB smear and culture were pending. Legionella and Pneumocystis carinii smear were pending. Vital signs stable. Patient afebrile. Patient is feeling much better at time of discharge and will follow up with Dr. Jacques and Dr. Dillon as discussed, as well as primary care in 1-2 weeks. Patient understands discharge instructions and agrees to plan. Dictated By: Elizabeth Eric, [employer] INSTRUCTOR JEREMIAH BILLINGS MD Job#: [id number] CQ
== END 2018-09-14 11:44 | disposition home or self-care (01) | DRG 871 ==
LOC: ER 12:38 → ERHOLD 12:43 → MED/SURG2 15:21
PROVIDERS: ADMIT Internal Medicine; ATTEND Internal Medicine
PROC: 0B9C8ZX Drainage of Right Upper Lung Lobe, Via Natural or Artificial Opening Endoscopic, Diagnostic (ICD-10-PCS; 2018-09-12)
PROC: 0BD48ZX Extraction of Right Upper Lobe Bronchus, Via Natural or Artificial Opening Endoscopic, Diagnostic (ICD-10-PCS; 2018-09-12)
PROC: 0B9D8ZX Drainage of Right Middle Lung Lobe, Via Natural or Artificial Opening Endoscopic, Diagnostic (ICD-10-PCS; principal; 2018-09-12 11:40)
DX: A41.9 Sepsis, unspecified organism (principal); J18.9 Pneumonia, unspecified organism; N17.9 Acute kidney failure, unspecified; I69.354 Hemiplegia and hemiparesis following cerebral infarction affecting left non-dominant side; M06.9 Rheumatoid arthritis, unspecified; I49.9 Cardiac arrhythmia, unspecified; D47.3 Essential (hemorrhagic) thrombocythemia; R63.0 Anorexia; Z68.24 Body mass index [BMI] 24.0-24.9, adult; R65.20 Severe sepsis without septic shock; E78.5 Hyperlipidemia, unspecified; D89.9 Disorder involving the immune mechanism, unspecified; E83.42 Hypomagnesemia; M77.9 Enthesopathy, unspecified; I10 Essential (primary) hypertension
CPT/HCPCS: 36415; 71046; 80048; 80053; 81001; 82550; 82553; 83735; 83880; 84484; 85025; 87015; 87040; 87070; 87086; 87102; 87109; 87110; 87116; 87205; 87206; 87278; 87335; 89051; 99284; J0171; J0360; J0692; J1450; J2405; J2765; J3370; J7042; J7050; J7512; J8610

== ENCOUNTER 2018-11-08 08:36 | Emergency (ER) | payer MEDICARE, BC ==
[~2018-11-08] VITALS: Ht 170.2 cm; Wt 69.9 kg
[~2018-11-08 08:36] MED LIST changes: +ATORVASTATIN CA20 MG PO; +CLOPIDOGREL75 MG PO; +IRBESARTAN75 MG PO; +ULTRAM50 MG PO
[2018-11-08] MEDS ORDERED: HYDROCODONE/APAP 5MG-325MG TAB PO ONE (09:00)
--- NOTE | 2018-11-08 09:49 | Diagnostic Imaging Report ---
Exam: Left foot radiographs-3 views; left ankle radiographs-3 views Clinical History: Rolled foot. Comparison: None. Findings: Diffuse osteopenia. Left foot: There is a mildly displaced fracture of the medial aspect of the navicular. Mild surrounding soft tissue edema. Remaining bony alignment is unremarkable. The Lisfranc alignment is maintained. Left ankle: There is a nondisplaced, intra-articular fracture of the medial malleolus. The ankle mortise is preserved. The soft tissue edema along the medial ankle. There is a well-corticated bony fragment adjacent to the medial malleolus, likely reflecting sequela of prior trauma. Impression: Acute, non-displaced, intra-articular fracture of the medial malleolus. Acute mildly displaced fracture of the medial aspect of the left navicular, likely reflecting avulsion fracture. Signed by: Dr. Cuca Mendoza MD on 11/08/2018 9:46 AM
[2018-11-08 10:32] VITALS: BP 110/72
== END 2018-11-08 10:40 | disposition home or self-care (01) ==
LOC: FSED 08:36
DX: S82.55XA Nondisplaced fracture of medial malleolus of left tibia, initial encounter for closed fracture (principal); X50.1XXA Overexertion from prolonged static or awkward postures, initial encounter; Y92.008 Other place in unspecified non-institutional (private) residence as the place of occurrence of the external cause; I10 Essential (primary) hypertension; E78.5 Hyperlipidemia, unspecified; J45.909 Unspecified asthma, uncomplicated; Z86.73 Personal history of transient ischemic attack (TIA), and cerebral infarction without residual deficits
CPT/HCPCS: 99284

== ENCOUNTER → 2019-03-02 | Outpatient (RCR) | payer MEDICARE, BC | LOC: PT 02-13 12:33 | PROVIDERS: ATTEND Specialist | DX: S82.892A Other fracture of left lower leg, initial encounter for closed fracture (principal); M25.572 Pain in left ankle and joints of left foot; M25.672 Stiffness of left ankle, not elsewhere classified; R60.0 Localized edema; R26.2 Difficulty in walking, not elsewhere classified; M62.81 Muscle weakness (generalized) ==

== ENCOUNTER 2019-03-08 09:00 | Outpatient (RCR) | payer MEDICARE, BC | END 2019-04-01 | LOC: PT 09:00 | PROVIDERS: ATTEND Specialist | DX: S82.892A Other fracture of left lower leg, initial encounter for closed fracture (principal); M25.572 Pain in left ankle and joints of left foot; M25.672 Stiffness of left ankle, not elsewhere classified; M62.81 Muscle weakness (generalized); R60.0 Localized edema; R26.2 Difficulty in walking, not elsewhere classified | CPT/HCPCS: 97139 ==

== ENCOUNTER → 2019-07-26 | Outpatient (CLI) | payer MEDICARE, BC ==
--- NOTE | 2019-07-26 17:30 | Diagnostic Imaging Report ---
EXAM: CT Chest WITHOUT intravenous contrast 07/26/2019 1:54 PM INDICATION: Lung nodule COMPARISON: Multiple prior Chest CT, most recently of 09/05/2018 TECHNIQUE: Chest was scanned utilizing a multidetector helical scanner from the lung apex through the level of the adrenal glands without administration of IV contrast. Coronal and sagittal reformations were obtained. Routine protocol was performed. IV CONTRAST: None RADIATION DOSE: Total DLP: mGy*cm. Dose modulation, iterative reconstruction, and/or weight based adjustment of the mA/kV was utilized to reduce the radiation dose to as low as reasonably achievable. COMPLICATIONS: None FINDINGS: LINES/ TUBES: None. LUNGS AND AIRWAYS: The central airways are patent. Minimal bilateral centrilobular emphysema. Mild biapical pleural parenchymal thickening/scarring. All previously identified pulmonary nodules, most notably the 7 mm left lower lobe nodule (series 3 image 88) appear essentially unchanged dating back to at least 12/04/2015. No new suspicious pulmonary nodules. No focal consolidation. PLEURA: No pleural effusion or pneumothorax. HEART AND MEDIASTINUM: The thyroid gland is normal. No supraclavicular, mediastinal, or hilar lymphadenopathy. No axillary or internal mammary lymphadenopathy. The heart is not enlarged. There are diffuse atherosclerotic calcifications of the coronary arteries and of the thoracic aorta and great vessels. No pericardial effusion.. UPPER ABDOMEN: Limited noncontrast images of the upper abdomen demonstrate no focal abnormality of the partially visualized liver, spleen, adrenals, or pancreas. There is a 2 mm nonobstructive left upper pole renal calculus. BONES: No acute osseous injury. No suspicious lytic or blastic lesions. SOFT TISSUES: Left chest subcutaneous loop recorder device. IMPRESSION: All previously identified pulmonary nodules appear essentially unchanged dating back to at least 12/04/2015. Given stability for over 3 years, these are almost certainly benign and do not require further imaging followup. New 2mm left upper pole nonobstructive renal calculus. Signed by: Dave Ahuja MD on 07/26/2019 5:27 PM
== END ==
LOC: CT 13:37
PROVIDERS: ATTEND Internal Medicine
DX: R91.1 Solitary pulmonary nodule (principal)
CPT/HCPCS: 71250

== ENCOUNTER 2019-09-09 16:20 | Emergency (ER) | payer MEDICARE, BC ==
[~2019-09-09] VITALS: Ht 170.2 cm; Wt 73.7 kg
[2019-09-09 17:35] VITALS: BP 144/90
== END 2019-09-09 17:25 | disposition home or self-care (01) ==
LOC: FSED 16:20
DX: S81.811A Laceration without foreign body, right lower leg, initial encounter (principal); W22.09XA Striking against other stationary object, initial encounter; Y92.008 Other place in unspecified non-institutional (private) residence as the place of occurrence of the external cause; I10 Essential (primary) hypertension; I25.10 Atherosclerotic heart disease of native coronary artery without angina pectoris; M06.9 Rheumatoid arthritis, unspecified; Z86.73 Personal history of transient ischemic attack (TIA), and cerebral infarction without residual deficits
CPT/HCPCS: 99283

== ENCOUNTER → 2020-03-10 | Outpatient (CLI) | payer MEDICARE, BC ==
--- NOTE | 2020-03-10 14:07 | Diagnostic Imaging Report ---
History: Low back pain Comparison studies: None Technique: Sagittal, coronal and axial T2 , sagittal T1 and IR, axial spin density oblique. Intravenous contrast: None Findings: Number of lumbar vertebral bodies:5 Alignment: Mild grade 1 degenerative anterolisthesis of L4 over L5 (6 mm) and L5 over S1 (5 mm).No signal scoliosis L3-L4. Soft tissues: No T2 hyperintense inflammatory changes. Paraspinal muscles: No signal abnormalities. No atrophy. Lower thoracic cord:Normal in signal and morphology. The tip of the conus is at L1. Cauda equina: No masses. No arachnoiditis. Vertebrae: At L2 inferior endplate Schmorl node results in loss of central height at L1 vertebral body. Remaining height and signal intensity is normal. No acute compression fractures, infection or neoplasm. Degenerative changes: L1-L2: Disc degeneration with loss of T2 signal and Schmorl mild at L1 inferior endplate. Diffuse disc bulge with superimposed left central inferiorly migrated disc extrusion, mild facet hypertrophy and ligamentum flavum buckling results in moderate canal stenosis, moderate right and mild left foraminal narrowing. L2-L3: Disc degeneration with loss of T2 signal. Diffuse disc bulge, mild facet hypertrophy and ligamentum flavum buckling results in mild canal stenosis and mild bilateral foraminal narrowing. Trace of fluid of the bilateral facet joints. L3-L4: Disc degeneration with loss of T2 signal. Diffuse disc bulge, moderate facet hypertrophy and ligamentum flavum buckling results in moderate canal stenosis, narrowing of the bilateral subarticular recesses and moderate bilateral foraminal narrowing. Trace of fluid at the bilateral facet joints.. L4-L5: Disc degeneration with loss of T2 signal. Grade 1 anterolisthesis with uncoverage of superior disc. Asymmetric left disc bulge, severe facet hypertrophy and ligamentum flavum buckling results in severe canal stenosis, severe right and moderate left foraminal narrowing. Trace of fluid at the bilateral facet joints. L5-S1: Disc degeneration with loss of T2 signal. Mild endplate edema at S1 anterior corner. Diffuse disc bulge and moderate facet hypertrophy results in mild central canal stenosis, obliteration of the left subarticular recess, mild right and severe left foraminal narrowing. Trace of fluid at the left facet joint. Additional findings: Nonspecific bilateral perirenal fat stranding IMPRESSION: Severe degenerative canal stenosis, severe right and moderate left foraminal narrowing at L4-L5. Grade 1 anterolisthesis contributes to the canal stenosis. Moderate degenerative canal stenosis, moderate right and mild left foraminal narrowing at L1-L2. Moderate degenerative canal stenosis and moderate bilateral foraminal narrowing at L3-L4. Obliteration of the left subarticular recess and severe left foraminal narrowing at L5-S1. Grade 1 anterolisthesis contributes to the left foraminal and lateral recess narrowing. Signed by: DR Piter Sierra M.D. on 03/10/2020 2:03 PM
== END ==
LOC: MRI 10:27
DX: M51.37 Other intervertebral disc degeneration, lumbosacral region (principal)
CPT/HCPCS: 72148

== ENCOUNTER 2020-04-11 15:42 | Emergency (ER) | payer MEDICARE, BC, OTHER ==
[~2020-04-11] VITALS: Ht 170.2 cm; Wt 71.7 kg
--- NOTE | 2020-04-11 17:23 | Diagnostic Imaging Report ---
A single frontal view of the chest. HISTORY: Cough and fever COMPARISON: CT chest on 07/26/2019 FINDINGS: Tubes/Lines: There an implanted cardiac monitoring device. Lungs and pleura: There is hazy opacification of the right lung base near the costophrenic sulcus. No focal consolidation, pleural effusion or pneumothorax. Heart and mediastinum: The cardiomediastinal silhouette appears unremarkable. Bones: No acute osseous lesion is identified, given this limited exam. IMPRESSION: Hazy airspace opacification of the right lung base near the costophrenic sulcus which may represent atelectasis and/or consolidation. Follow-up to resolution. Signed by: José Luis Franco MD on 04/11/2020 5:19 PM
--- NOTE | 2020-04-11 17:29 | Emergency Department Note ---
History of Present Illnes History of Present Illness Chief Complaint: COVID PUI History of Present Illness This is a 79 year old female . Chief Complaint Comment Reports fever, cough and body aches since yesterday. 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 Onset (how long ago): day(s) (2) Location: cough chest Quality: dull Radiation: Denies non-radiation, Denies back, Denies neck, Denies extremity, Denies abdomen, Denies periumbilical, Denies flank, Denies proximal, Denies distal, Denies other Onset quality: gradual Duration (how long): day(s) (2) Timing of current episode: intermittent Progression: waxing and waning Chronicity: new Context: Denies recent illness, Denies recent surgery, Denies recent immobilization, Denies recent travel, Denies trauma/injury, Denies new medications, Denies hx of DVT/PE, Denies non-compliance w/ medications, Denies other Relieving factors: none Exacerbating factors: none Associated symptoms: Reports cough Treatments prior to arrival: none Past Medical/Family History Physician Review I have reviewed the patient's past medical and family history. Any updates have been documented here. Past Medical History Recent Fever: No Clinical Suspicion of Infectio: No New/Unexplained Change in Ment: No Past Medical History: Hypertension, CVA Other Medical History: RA heart arrhythmia Past Surgical History: Hip Replacement, Colon Resection Other Surgery: left colectomy Social History Smoking Cessation: Never Smoker Counseling Performed: No Alcohol Use: None Any Illegal Drug Use: No Physically hurt or threatened: No Other Last Tetanus: UTD Any Pre-Existing Lines (PICC,: No Review of Systems Review of Systems Constitutional: Reports no symptoms EENTM: Reports as per HPI Cardiovascular: Reports no symptoms Respiratory: Reports as per HPI Gastrointestinal: Reports no symptoms Genitourinary: Reports no symptoms Musculoskeletal: Reports no symptoms Integumentary: Reports no symptoms Neurological: Reports no symptoms Psychological: Reports no symptoms Endocrine: Reports no symptoms Hematological/Lymphatic: Reports no symptoms Physical Exam Related Data Allergies: Coded Allergies: Iodine and Iodide Containing Produc (Verified Allergy, Mild, HIVES, 11/12/12) levofloxacin (Verified Adverse Reaction, Severe, ruptured tendonitis, 11/12/12) codeine (Verified Adverse Reaction, Unknown, N/V, 09/09/18) Uncoded Allergies: ALMONDS (Allergy, Severe, 11/08/18) CASHEWS (Allergy, Unknown, 09/09/18) Triage Vital Signs Vital Signs Date Time Temp Pulse Resp B/P (MAP) Pulse Ox O2 Delivery O2 Flow Rate FiO2 04/11/20 15:52 97.0 75 18 156/90 94 Room Air Vital signs reviewed: Yes Physical Exam CONSTITUTIONAL Constitutional: Present well-developed, Present well-nourished HENT HENT: Present normocephalic, Present atraumatic, Present oropharynx clear/moist, Present nose normal HENT L/R: Present left ext ear normal, Present right ext ear normal EYES Eyes: Reports PERRL, Reports conjunctivae normal NECK Neck: Present ROM normal PULMONARY Pulmonary: Present effort normal, Present rhonchi CARDIOVASCULAR Cardiovascular: Present regular rhythm, Present heart sounds normal, Present capillary refill normal, Present normal rate GASTROINTESTINAL Abdominal: Present soft, Present nontender, Present bowel sounds normal GENITOURINARY Genitourinary: Present exam deferred SKIN Skin: Present warm, Present dry MUSCULOSKELETAL Musculoskeletal: Present ROM normal NEUROLOGICAL Neurological: Present alert, Present oriented x 3, Present no gross motor or sensory deficits PSYCHOLOGICAL Psychological: Present mood/affect normal, Present judgement normal Results Imaging Imaging results reviewed: Yes Assessment & Plan Medical Decision Making MDM bronchitis... COVID Reassessment Reassessment time: 17:28 Reassessment SAME Assessment & Plan Final Impression: (1) Acute bronchitis Depart Disposition: HOME, SELF-CARE Last Vital Signs Date Time Temp Pulse Resp B/P (MAP) Pulse Ox O2 Delivery O2 Flow Rate FiO2 04/11/20 15:52 97.0 75 18 156/90 94 Room Air Home Meds Reported Medications Clopidogrel Bisulfate (CLOPIDOGREL) 75 Mg Tablet, 75 MG PO DAILY, #30 TAB 09/09/18 Atorvastatin Calcium (ATORVASTATIN CALCIUM) 20 Mg Tablet, 40 MG PO HS, #30 TAB 09/09/18 Irbesartan (IRBESARTAN) 75 Mg Tablet, 75 MG PO BID 09/09/18 Tramadol Hcl (ULTRAM) 50 Mg Tablet, 50 MG PO Q6H PRN for PAIN, TAB 09/09/18 Methotrexate Sodium (METHOTREXATE) 2.5 Mg Tablet, 12.5 MG PO WEEKLY 11/12/12 Prednisone (PREDNISONE) 10 Mg Tab, 5 MG PO DAILY 11/12/12 Amitriptyline Hcl (Amitriptyline Hcl) 50 Mg Tablet, 25 MG PO DAILY 04/25/12 Albuterol Sulfate (Albuterol Sulfate Hfa) 8.5 Gm Hfa.aer.ad, 8.5 GM IH DAILY 04/25/12 Flecainide Acetate (Tambocor) 50 Mg Tablet, 100 MG PO BID, 0 Refills 11/02/11 Meloxicam (Mobic) 7.5 Mg Tablet, 7.5 MG PO DAILY 11/02/11 AJNNIE CARBONE MD Apr 11, 2020 17:29
[2020-04-11] MEDS ORDERED: ZITHROMAX250 MG PEG (17:31)
--- NOTE | 2020-04-12 07:04 | NUR ---
Pt notified of positive test result by Dr. Lester
== END 2020-04-11 18:09 | disposition home or self-care (01) ==
LOC: FSED 16:20
DX: U07.1 COVID-19 (principal); J20.9 Acute bronchitis, unspecified; R05 Cough; I10 Essential (primary) hypertension; M06.9 Rheumatoid arthritis, unspecified; Z86.73 Personal history of transient ischemic attack (TIA), and cerebral infarction without residual deficits
CPT/HCPCS: 71045; 99283; U0002

== ENCOUNTER → 2020-05-19 | Outpatient (CLI) | payer MEDICARE, BC, OTHER ==
[~2020-05-19] MED LIST changes: +ZITHROMAX250 MG PEG
--- NOTE | 2020-05-19 08:41 | Diagnostic Imaging Report ---
X-ray chest PA and lateral History: Tested positive for Covid, cough Comparison: 04/11/2020 Findings: Central airways unremarkable. Heart size normal. Aortic and mediastinal contours unremarkable. No pleural effusion. No pneumothorax. No definite focal lung disease. Visualized skeletal structures unremarkable. Cardiac monitoring device in the left chest wall. Compared with the previous exam, there is no significant change. Impression: No acute cardiopulmonary disease on this exam. Signed by: Zachary Gonzalez MD on 05/19/2020 8:37 AM
== END ==
LOC: RAD 07:20
PROVIDERS: ATTEND Internal Medicine
DX: J44.9 Chronic obstructive pulmonary disease, unspecified (principal)
CPT/HCPCS: 71046

== ENCOUNTER → 2020-07-16 | Outpatient (CLI) | payer MEDICARE, BC, OTHER ==
--- NOTE | 2020-07-16 09:44 | Diagnostic Imaging Report ---
CT of the chest, without contrast, 07/16/2020. History: Cough, nodule, history of Covid pneumonia. Comparison: Chest x-ray 05/19/2020. CT chest 07/26/2019. Technique: Multidetector CT scanning of the chest was performed from the level of the apices to the upper abdomen without contrast. Coronal and sagittal multiplanar reformations were obtained. RADIATION DOSE: Total DLP: 462 mGy*cm Dose modulation, iterative reconstruction, and/or weight based adjustment of the mA/kV was utilized to reduce the radiation dose to as low as reasonably achievable. Discussion: Evaluation is limited without IV contrast. Chest: The heart, aorta, and pulmonary vessels are normal in size. There is calcification of the thoracic aorta and coronary arteries. The thyroid is unremarkable. There is no gross evidence of adenopathy. There is minimal biapical pleural thickening and scattered bilateral subpleural scarring. There is mild bilateral emphysema. Multiple bilateral subcentimeter pulmonary nodules unchanged, including the 7 mm right lower lobe nodule. There is no evidence of pleural effusion. Limited evaluation of the upper abdomen shows normal adrenal glands. Bones and soft tissues: No acute abnormality. A loop recorder device is again noted. Degenerative changes are present throughout the thoracic spine. IMPRESSION: No acute pulmonary abnormality. Stable benign subcentimeter pulmonary nodules. Signed by: Ravinder Irvin on 07/16/2020 9:40 AM
== END ==
LOC: CT 07:52
PROVIDERS: ATTEND Internal Medicine
DX: R91.1 Solitary pulmonary nodule (principal)
CPT/HCPCS: 71250

== ENCOUNTER → 2020-07-18 | Outpatient (CLI) | payer MEDICARE, BC | LOC: NM 14:53 | PROVIDERS: ATTEND Internal Medicine | DX: R06.09 Other forms of dyspnea (principal) | CPT/HCPCS: 78582; A9540 ==

== ENCOUNTER → 2020-09-04 | Outpatient (CLI) | payer MEDICARE, BC ==
--- NOTE | 2020-09-04 16:17 | Diagnostic Imaging Report ---
Bilateral knees, 3 views. History: Bilateral knee pain. Findings: Minimal posterior vascular calcifications are present. There is no evidence of a joint effusion. Bone mineralization is normal. There is no evidence of fracture or dislocation. There are no lytic or sclerotic lesions. The joint spaces are within normal limits. IMPRESSION: Normal bilateral knees. Signed by: Ravinder Irvin on 09/04/2020 4:14 PM
== END ==
LOC: RAD 14:58
DX: M25.562 Pain in left knee (principal); M25.561 Pain in right knee

== ENCOUNTER → 2020-11-14 | Outpatient (CLI) | payer MEDICARE, BC | END | disposition home or self-care (01) | LOC: CT 14:41 | PROVIDERS: ATTEND Internal Medicine | DX: R05 Cough (principal) | CPT/HCPCS: 71250 ==

== ENCOUNTER → 2021-11-10 | Outpatient (CLI) | payer MEDICARE, BC | LOC: CT 07:39 | PROVIDERS: ATTEND Internal Medicine | DX: R91.1 Solitary pulmonary nodule (principal) | CPT/HCPCS: 71250 ==

== ENCOUNTER 2021-11-17 23:37 | Inpatient (IN) | payer MEDICARE, BC ==
[~2021-11-17] VITALS: Ht 170.2 cm; Wt 72.6 kg
[2021-11-17] MEDS ORDERED: ALBUTEROL/IPRATROPIUM 3 ML NEB NEB ONE (23:45)
[2021-11-17] MEDS ORDERED: METHYLPREDNISOLONE SOD SUCC 125 MG/2ML VIAL IV ONE (23:45)
[2021-11-17 23:53] LABS: BASOPHILS # (AUTO) 0.1 (0.0-0.1); BASOPHILS % 0.4 % (0.0-1.0); EOSINOPHILS # (AUTO) 0.2 (0.0-0.4); EOSINOPHILS % 1.1 % (0.0-6.0); HEMATOCRIT 46.1 % (34.2-44.1); HEMOGLOBIN 14.6 g/dL (12.0-16.0); LYMPHOCYTES # (AUTO) 3.3 (1.0-3.2); LYMPHOCYTES % 15.1 % (18.0-39.1); MEAN CORPUSCULAR HEMOGLOBIN 30.9 pg (28-32); MEAN CORPUSCULAR HGB CONC 31.7 g/dL (31-35); MEAN CORPUSCULAR VOLUME 97.5 fL (81-99); MONOCYTES # (AUTO) 1.9 (0.2-0.8); MONOCYTES % 8.8 % (4.4-11.3); NEUTROPHILS # (AUTO) 16.4 (2.1-6.9); NEUTROPHILS % 74.1 % (38.7-80.0); PLATELET COUNT 490 x10e3/uL (140-360); RED BLOOD COUNT 4.73 x10e6/uL (3.6-5.1); RED CELL DISTRIBUTION WIDTH 13.2 % (11.7-14.4)
[2021-11-18] VITALS (8 sets, daily range): BP systolic 122–145; BP diastolic 73–99
[2021-11-18] MEDS ORDERED: ACETAMINOPHEN 325 MG TAB PO ONE
[2021-11-18] MEDS ORDERED: ALBUTEROL/IPRATROPIUM 3 ML NEB ONE (00:02)
[2021-11-18] MEDS ORDERED: ACETAMINOPHEN 325 MG TAB ONE (00:05)
[2021-11-18 00:11] LABS: ALBUMIN/GLOBULIN RATIO 1.2 (0.8-2.0); ANION GAP 16.2 mmol/L (8-16); CALCIUM 9.8 mg/dL (8.4-10.2); CREATININE, SERUM 1.03 mg/dL (0.57-1.11); POTASSIUM 4.2 mmol/L (3.5-5.1)
[2021-11-18 00:12] LABS: INR 1.21; PROTHROMBIN TIME 16.1 seconds (11.9-14.5)
[2021-11-18 00:18] LABS: B-TYPE NATRIURETIC PEPTIDE2 38.6 pg/mL (0-100)
[2021-11-18] MEDS: CEFTRIAXONE 1 GM in SODIUM CHLORIDE 0.9% 50ML 50 ML IV SCH ×2 (00:30→09:00)
[2021-11-18] MEDS ORDERED: ALBUTEROL/IPRATROPIUM 3 ML NEB NEB PRN ×2 (01:00→07:30)
[2021-11-18] MEDS ORDERED: Morphine 4mg Syringe 4 MG/ML INJ IV ONE (02:00)
[2021-11-18] MEDS ORDERED: NEURONTIN300 MG PO (03:04)
[2021-11-18] MEDS ORDERED: XARELTO2.5 MG (03:05)
[2021-11-18] MEDS ORDERED: ASPIRIN81 MG PO (03:07)
[2021-11-18] MEDS ORDERED: FOLIC ACID-VIT1 EACH PO (03:51)
[2021-11-18] MEDS ORDERED: LEXAPRO10 MG PO (03:53)
[2021-11-18] MEDS ORDERED: VITAMIN D3 COM1 EACH (03:53)
[2021-11-18] MEDS ORDERED: ALBUTEROL/IPRATROPIUM 3 ML NEB INH PRN (06:45)
[2021-11-18] MEDS: IPRATROPIUM/ALBUTEROL SULFATE 4 GM INH INH PRN ×2 (07:00→12:58)
[2021-11-18] MEDS ORDERED: TRAMADOL HCL 50 MG TAB PO PRN (07:30)
[2021-11-18] MEDS ORDERED: GUAIFENESIN/DEXTROMETHORPHAN LIQD 5 ML UDC NG PRN (07:30)
[2021-11-18] MEDS ORDERED: DOCUSATE SODIUM 100 MG CAP PO PRN (07:30)
[2021-11-18] MEDS ORDERED: ACETAMINOPHEN 325 MG TAB PO PRN (07:30)
[2021-11-18 07:56] LABS: BASOPHILS % 0.1 % (0.0-1.0); HEMATOCRIT 44.6 % (34.2-44.1); HEMOGLOBIN 14.1 g/dL (12.0-16.0); LYMPHOCYTES # (AUTO) 0.6 (1.0-3.2); LYMPHOCYTES % 3.6 % (18.0-39.1); MEAN CORPUSCULAR HEMOGLOBIN 30.5 pg (28-32); MEAN CORPUSCULAR HGB CONC 31.6 g/dL (31-35); MEAN CORPUSCULAR VOLUME 96.5 fL (81-99); MONOCYTES # (AUTO) 0.1 (0.2-0.8); MONOCYTES % 0.3 % (4.4-11.3); NEUTROPHILS # (AUTO) 14.6 (2.1-6.9); NEUTROPHILS % 95.3 % (38.7-80.0); PLATELET COUNT 464 x10e3/uL (140-360); RED BLOOD COUNT 4.62 x10e6/uL (3.6-5.1); RED CELL DISTRIBUTION WIDTH 13.2 % (11.7-14.4)
[2021-11-18 08:19] LABS: ANION GAP 15.7 mmol/L (8-16); CALCIUM 9.4 mg/dL (8.4-10.2); CREATININE, SERUM 0.99 mg/dL (0.57-1.11); POTASSIUM 4.7 mmol/L (3.5-5.1)
[2021-11-18] MEDS: FLECAINIDE ACETATE 100 MG TAB PO SCH ×2 (09:00→17:00)
[2021-11-18] MEDS ORDERED: CEFTRIAXONE 1 GM in SODIUM CHLORIDE 0.9% 50ML 50 ML IV SCH ×4 (09:00)
[2021-11-18] MEDS: GABAPENTIN 300 MG CAP PO SCH (09:00)
[2021-11-18] MEDS: LORATADINE 10 MG TAB PO SCH (09:00)
[2021-11-18] MEDS: APIXABAN 5 MG TABLET PO SCH ×2 (09:00→17:00)
[2021-11-18] MEDS: IRBESARTAN 150 MG TAB PO SCH ×2 (09:00→19:24)
[2021-11-18] MEDS: BENZONATATE 100 MG CAP PO SCH ×3 (09:00→20:19)
[2021-11-18] MEDS: ASPIRIN 81 MG CHEW TAB PO SCH (09:00)
[2021-11-18] MEDS: CLOPIDOGREL BISULFATE 75 MG TAB PO SCH (09:00)
[2021-11-18] MEDS: DEXAMETHASONE SOD PHOS 10 MG/1 ML VIAL IV SCH (10:17)
[2021-11-18] MEDS ORDERED: REMDESIVIR 100MG 200 MG in SODIUM CHLORIDE 0.9% 100 ML IV ONE (13:00)
[2021-11-18] MEDS: ESCITALOPRAM OXALATE 10 MG TAB PO SCH (20:19)
[2021-11-18] MEDS: ATORVASTATIN 40 MG TAB PO SCH (20:19)
[2021-11-18] MEDS: MELATONIN 3 MG TAB PO PRN (20:20)
[2021-11-19] VITALS (9 sets, daily range): BP systolic 117–151; BP diastolic 71–87
[2021-11-19] MEDS: ALBUTEROL SULFATE HFA 8GM INHALATION AEROSOL INH SCH ×5 (01:00→18:25)
[2021-11-19 07:15] LABS: BASOPHILS % 0.2 % (0.0-1.0); HEMATOCRIT 40.8 % (34.2-44.1); HEMOGLOBIN 13.4 g/dL (12.0-16.0); LYMPHOCYTES # (AUTO) 1.3 (1.0-3.2); LYMPHOCYTES % 6.3 % (18.0-39.1); MEAN CORPUSCULAR HEMOGLOBIN 30.9 pg (28-32); MEAN CORPUSCULAR HGB CONC 32.8 g/dL (31-35); MONOCYTES # (AUTO) 1.5 (0.2-0.8); MONOCYTES % 7.3 % (4.4-11.3); NEUTROPHILS # (AUTO) 17.7 (2.1-6.9); NEUTROPHILS % 85.1 % (38.7-80.0); PLATELET COUNT 424 x10e3/uL (140-360); RED BLOOD COUNT 4.34 x10e6/uL (3.6-5.1); RED CELL DISTRIBUTION WIDTH 13.1 % (11.7-14.4)
[2021-11-19] MEDS: CLOPIDOGREL BISULFATE 75 MG TAB PO SCH (07:21)
[2021-11-19 07:52] LABS: CALCIUM 8.8 mg/dL (8.4-10.2); CREATININE, SERUM 0.84 mg/dL (0.57-1.11)
[2021-11-19] MEDS: APIXAB 2.5 MG TABLET PO SCH ×2 (09:34→16:32)
[2021-11-19] MEDS: GABAPENTIN 300 MG CAP PO SCH (09:34)
[2021-11-19] MEDS: CEFTRIAXONE 1 GM in SODIUM CHLORIDE 0.9% 50ML 50 ML IV SCH (09:34)
[2021-11-19] MEDS: ASPIRIN 81 MG CHEW TAB PO SCH (09:34)
[2021-11-19] MEDS: IRBESARTAN 150 MG TAB PO SCH ×2 (09:34→16:32)
[2021-11-19] MEDS: LORATADINE 10 MG TAB PO SCH (09:34)
[2021-11-19] MEDS: DEXAMETHASONE SOD PHOS 10 MG/1 ML VIAL IV SCH (09:34)
[2021-11-19] MEDS: FLECAINIDE ACETATE 100 MG TAB PO SCH ×2 (09:35→16:32)
[2021-11-19] MEDS: CHOLECALCIFEROL 1,000 UNIT TAB PO SCH (09:35)
[2021-11-19] MEDS: BENZONATATE 100 MG CAP PO SCH ×3 (09:35→20:04)
[2021-11-19] MEDS: REMDESIVIR 100MG 100 MG in SODIUM CHLORIDE 0.9% 100 ML IV SCH (13:45)
[2021-11-19] MEDS: ESCITALOPRAM OXALATE 10 MG TAB PO SCH (20:04)
[2021-11-19] MEDS: ATORVASTATIN 40 MG TAB PO SCH (20:04)
[2021-11-19] MEDS: MELATONIN 3 MG TAB PO PRN (20:05)
[2021-11-20] VITALS: BP 122/73
[2021-11-20] MEDS: ALBUTEROL SULFATE HFA 8GM INHALATION AEROSOL INH SCH ×3 (01:00→13:00)
[2021-11-20 04:00] VITALS: BP 148/78
[2021-11-20] MEDS ORDERED: CEPHALEXIN500 MG PO (06:38)
[2021-11-20] MEDS ORDERED: ZITHROMAX500 MG PO (06:38)
[2021-11-20] MEDS ORDERED: ROBITUSSIN COU118 M4 PO (06:38)
[2021-11-20] MEDS ORDERED: PREDNISONE20 MG PO (06:38)
[2021-11-20] MEDS ORDERED: Benzonatate PO (06:38)
[2021-11-20] MEDS ORDERED: LORATADINE10 MG PO (06:38)
[2021-11-20] MEDS ORDERED: ONDANSETRON ODT4 MG PO (07:22)
[2021-11-20] MEDS ORDERED: ONDANSETRON HCL INJ 2MG/ML 2ML 2 MG/ML VIAL IV PRN (07:30)
[2021-11-20] MEDS ORDERED: ONDANSETRON HCL 4 MG ORAL DISINTEGRATING TAB PO PRN (08:00)
[2021-11-20] MEDS: DEXAMETHASONE SOD PHOS 10 MG/1 ML VIAL IV SCH (08:42)
[2021-11-20] MEDS: APIXAB 2.5 MG TABLET PO SCH (08:43)
[2021-11-20] MEDS: ASPIRIN 81 MG CHEW TAB PO SCH (08:43)
[2021-11-20] MEDS: IRBESARTAN 150 MG TAB PO SCH (08:43)
[2021-11-20] MEDS: GABAPENTIN 300 MG CAP PO SCH (08:43)
[2021-11-20] MEDS: LORATADINE 10 MG TAB PO SCH (08:43)
[2021-11-20] MEDS: BENZONATATE 100 MG CAP PO SCH (08:44)
[2021-11-20] MEDS: CHOLECALCIFEROL 1,000 UNIT TAB PO SCH (08:44)
[2021-11-20] MEDS: CLOPIDOGREL BISULFATE 75 MG TAB PO SCH (08:44)
[2021-11-20] MEDS: FLECAINIDE ACETATE 100 MG TAB PO SCH (08:44)
[2021-11-20 08:56] VITALS: BP 166/67
[2021-11-20] MEDS: CEFTRIAXONE 1 GM in SODIUM CHLORIDE 0.9% 50ML 50 ML IV SCH (09:14)
[2021-11-20 09:16] VITALS: BP 166/67
[2021-11-20 10:45] LABS: BASOPHILS % 0.2 % (0.0-1.0); HEMATOCRIT 40.7 % (34.2-44.1); HEMOGLOBIN 13.3 g/dL (12.0-16.0); LYMPHOCYTES # (AUTO) 0.6 (1.0-3.2); LYMPHOCYTES % 3.9 % (18.0-39.1); MEAN CORPUSCULAR HEMOGLOBIN 31.1 pg (28-32); MEAN CORPUSCULAR HGB CONC 32.7 g/dL (31-35); MEAN CORPUSCULAR VOLUME 95.1 fL (81-99); MONOCYTES # (AUTO) 0.3 (0.2-0.8); MONOCYTES % 2.1 % (4.4-11.3); PLATELET COUNT 423 x10e3/uL (140-360); RED BLOOD COUNT 4.28 x10e6/uL (3.6-5.1); RED CELL DISTRIBUTION WIDTH 13.2 % (11.7-14.4)
[2021-11-20 11:05] LABS: CALCIUM 8.6 mg/dL (8.4-10.2)
[2021-11-20 11:22] LABS: CREATININE, SERUM 0.92 mg/dL (0.57-1.11)
[2021-11-20 12:44] VITALS: BP 138/79
[2021-11-20] MEDS: REMDESIVIR 100MG 100 MG in SODIUM CHLORIDE 0.9% 100 ML IV SCH (13:00)
[2021-11-21] MEDS ORDERED: AZITHROMYCIN 250 MG TAB PO SCH (08:00)
== END 2021-11-20 13:35 | disposition home or self-care (01) | DRG 871 ==
LOC: ER 23:49 → ERHOLD 11-18 00:56 → IMCU 11-18 02:10 → OBSVTOIN 11-18 15:40
PROVIDERS: ADMIT Internal Medicine; ATTEND Internal Medicine
PROC: 8E0ZXY6 Isolation (ICD-10-PCS; principal; 2021-11-18)
PROC: XW033E5 Introduction of Remdesivir Anti-infective into Peripheral Vein, Percutaneous Approach, New Technology Group 5 (ICD-10-PCS; 2021-11-18)
PROC: 3E0333Z Introduction of Anti-inflammatory into Peripheral Vein, Percutaneous Approach (ICD-10-PCS; 2021-11-18)
DX: A41.89 Other specified sepsis (principal); U07.1 COVID-19; J96.01 Acute respiratory failure with hypoxia; J96.21 Acute and chronic respiratory failure with hypoxia; J44.1 Chronic obstructive pulmonary disease with (acute) exacerbation; I69.354 Hemiplegia and hemiparesis following cerebral infarction affecting left non-dominant side; D84.9 Immunodeficiency, unspecified; D84.821 Immunodeficiency due to drugs; I12.9 Hypertensive chronic kidney disease with stage 1 through stage 4 chronic kidney disease, or unspecified chronic kidney disease; N18.30 Chronic kidney disease, stage 3 unspecified; M06.9 Rheumatoid arthritis, unspecified; Z87.891 Personal history of nicotine dependence; I49.9 Cardiac arrhythmia, unspecified; Z86.16 Personal history of COVID-19; G62.9 Polyneuropathy, unspecified; I48.0 Paroxysmal atrial fibrillation; Z79.01 Long term (current) use of anticoagulants; Z90.49 Acquired absence of other specified parts of digestive tract
CPT/HCPCS: 36415; 71045; 80048; 80053; 83605; 83880; 84145; 84484; 85025; 85379; 85610; 87040; 93005; 94640; 94664; 94799; 99251; 99284; J0248; J0456; J0696; J1100; J2405; J2930; J7050; U0002

== ENCOUNTER → 2022-01-21 | Outpatient (CLI) | payer MEDICARE, BC ==
[~2022-01-21] MED LIST changes: +ASPIRIN81 MG PO; +Benzonatate PO; +CEPHALEXIN500 MG PO; +FOLIC ACID-VIT1 EACH PO; +LEXAPRO10 MG PO; +LORATADINE10 MG PO; +NEURONTIN300 MG PO; +ONDANSETRON ODT4 MG PO; +PREDNISONE20 MG PO; +ROBITUSSIN COU118 M4 PO; +VITAMIN D3 COM1 EACH; +XARELTO2.5 MG; +ZITHROMAX500 MG PO
== END ==
LOC: RAD 10:44
PROVIDERS: ATTEND Family Medicine Geriatric Medicine
DX: R60.9 Edema, unspecified (principal)
CPT/HCPCS: 93971

== ENCOUNTER → 2022-02-12 | Outpatient (CLI) | payer MEDICARE, BC ==
[~2022-02-12] MED LIST changes: +CORLANOR5 MG PO; +DOXYCYCLINE HY100 MG PO; +GUAIFENESIN-DM 15 ML PO; +ORENCIA125 MG/1 M IV; +TRELEGY ELLIPT1 EACH INH; -VITAMIN D3 COM1 EACH; +VITAMIN D3 COM1 EACH PO; -XARELTO2.5 MG; +XARELTO2.5 MG PO; +[UNRECOGNIZED DRUG - REMARK] IV
== END ==
LOC: US 13:02
PROVIDERS: ATTEND Internal Medicine Infectious Disease
DX: L03.116 Cellulitis of left lower limb (principal); S80.12XA Contusion of left lower leg, initial encounter
CPT/HCPCS: 76882

== ENCOUNTER 2022-02-22 08:48 | Inpatient (IN) | payer MEDICARE, BC ==
[~2022-02-22] VITALS: Ht 170.2 cm; Wt 71.7 kg
[~2022-02-22 08:48] MED LIST changes: -GUAIFENESIN-DM 15 ML PO
[2022-02-22 09:42] LABS: BASOPHILS # (AUTO) 0.1 (0.0-0.1); BASOPHILS % 0.5 % (0.0-1.0); EOSINOPHILS # (AUTO) 0.7 (0.0-0.4); EOSINOPHILS % 3.2 % (0.0-6.0); HEMATOCRIT 47.3 % (34.2-44.1); HEMOGLOBIN 14.8 g/dL (12.0-16.0); LYMPHOCYTES # (AUTO) 3.1 (1.0-3.2); LYMPHOCYTES % 14.4 % (18.0-39.1); MEAN CORPUSCULAR HEMOGLOBIN 30.9 pg (28-32); MEAN CORPUSCULAR HGB CONC 31.3 g/dL (31-35); MEAN CORPUSCULAR VOLUME 98.7 fL (81-99); MONOCYTES # (AUTO) 1.2 (0.2-0.8); MONOCYTES % 5.6 % (4.4-11.3); NEUTROPHILS # (AUTO) 16.3 (2.1-6.9); NEUTROPHILS % 75.4 % (38.7-80.0); PLATELET COUNT 444 x10e3/uL (140-360); RED BLOOD COUNT 4.79 x10e6/uL (3.6-5.1); RED CELL DISTRIBUTION WIDTH 12.9 % (11.7-14.4)
[2022-02-22 10:11] LABS: ALANINE AMINOTRANSFERASE 17 IU/L (0-55); ALBUMIN 3.6 g/dL (3.5-5.0); ALBUMIN/GLOBULIN RATIO 1.1 (0.8-2.0); ALKALINE PHOSPHATASE 59 IU/L (40-150); ANION GAP 14.9 mmol/L (8-16); BLOOD UREA NITROGEN 16 mg/dL (7-26); BUN/CREATININE RATIO 14 (6-25); CARBON DIOXIDE 27 mmol/L (22-29); CHLORIDE 105 mmol/L (98-107); CREATINE KINASE 71 IU/L (29-168); CREATININE, SERUM 1.16 mg/dL (0.57-1.11); GLUCOSE 105 mg/dL (74-118); MAGNESIUM 2.1 MG/DL (1.3-2.1); POTASSIUM 3.9 mmol/L (3.5-5.1); SODIUM 143 mmol/L (136-145)
[2022-02-22 10:32] LABS: INR 0.96; PROTHROMBIN TIME 13.7 seconds (11.9-14.5)
[2022-02-22 10:33] LABS: PARTIAL THROMBOPLASTIN TIME 24.6 seconds (23.8-35.5)
[2022-02-22] MEDS ORDERED: ALBUTEROL/IPRATROPIUM 3 ML NEB NEB PRN (10:45)
[2022-02-22] MEDS ORDERED: METHYLPREDNISOLONE SOD SUCC 125 MG/2ML VIAL IV SCH (11:00)
[2022-02-22 11:03] LABS: CLARITY,URINE CLEAR (CLEAR); COLOR,URINE YELLOW (YELLOW); KETONES,URINE NEGATIVE (NEGATIVE); LEUKOCYTE ESTERASE ,URINE NEGATIVE (NEGATIVE); NITRITE,URINE NEGATIVE (NEGATIVE); PROTEIN,URINE DIPSTICK NEGATIVE (NEGATIVE)
[2022-02-22 11:04] LABS: URINE UROBILINOGEN 0.2 mg/dL (0.2 - 1)
[2022-02-22 11:32] LABS: BACTERIA,URINE FEW /HPF; EPITHELIAL CELLS,URINE FEW /LPF; RBC,URINE 0-5 /HPF (0-5); WBC,URINE (MAN) 0-5 /HPF (0-5)
[2022-02-22] MEDS ORDERED: LORATADINE 10 MG TAB PO PRN (11:45)
[2022-02-22 15:45] VITALS: BP 95/76
[2022-02-22] MEDS: FLECAINIDE ACETATE 100 MG TAB PO SCH (17:37)
[2022-02-22] MEDS: METHYLPREDNISOLONE SOD SUCC 40 MG/ML VIAL 1ML IV SCH (17:46)
[2022-02-22 17:50] LABS: ABG HCO3 25 mmol/L (22-26); ABG PCO2 39 mmHg (35-45); ABG PH 7.42 (7.35-7.45); ABG PO2 91 mmHg (80-105); ABG TCO2 27
[2022-02-22 18:01] LABS: CREATINE KINASE 70 IU/L (29-168)
[2022-02-22] MEDS: FOLIC ACID PO SCH (18:30)
[2022-02-22] MEDS: MV MN PO SCH (18:30)
[2022-02-22] MEDS: HERB PO SCH (18:30)
[2022-02-22] MEDS: [UNRECOGNIZED DRUG - OTHER] PO SCH (18:30)
[2022-02-22] MEDS: IRON PO SCH (18:30)
[2022-02-22] MEDS: ALBUTEROL/IPRATROPIUM 3 ML NEB NEB SCH (20:10)
[2022-02-22] MEDS: GABAPENTIN 300 MG CAP PO SCH (21:10)
[2022-02-22] MEDS: ESCITALOPRAM OXALATE 10 MG TAB PO SCH (21:10)
[2022-02-22] MEDS: HYDROCORTISONE SOD SUCCINATE 100 MG VIAL IV SCH (21:10)
[2022-02-22] MEDS: ATORVASTATIN 40 MG TAB PO SCH (21:10)
[2022-02-22] MEDS: IRBESARTAN 150 MG TAB PO SCH (21:10)
[2022-02-22] MEDS ORDERED: ALPRAZOLAM 0.25 MG TAB PO PRN (22:30)
[2022-02-23] VITALS (8 sets, daily range): BP systolic 95–124; BP diastolic 50–76
[2022-02-23] MEDS: ALBUTEROL/IPRATROPIUM 3 ML NEB NEB SCH ×4 (01:00→19:50)
[2022-02-23] MEDS: METHYLPREDNISOLONE SOD SUCC 40 MG/ML VIAL 1ML IV SCH (03:13)
[2022-02-23] MEDS: HYDROCORTISONE SOD SUCCINATE 100 MG VIAL IV SCH ×3 (06:10→21:42)
[2022-02-23 06:52] LABS: BASOPHILS % 0.2 % (0.0-1.0); HEMATOCRIT 43.2 % (34.2-44.1); HEMOGLOBIN 13.8 g/dL (12.0-16.0); LYMPHOCYTES % 6.2 % (18.0-39.1); MEAN CORPUSCULAR HEMOGLOBIN 31.1 pg (28-32); MEAN CORPUSCULAR HGB CONC 31.9 g/dL (31-35); MEAN CORPUSCULAR VOLUME 97.3 fL (81-99); MONOCYTES # (AUTO) 0.4 (0.2-0.8); MONOCYTES % 2.3 % (4.4-11.3); NEUTROPHILS # (AUTO) 15.3 (2.1-6.9); NEUTROPHILS % 90.3 % (38.7-80.0); PLATELET COUNT 420 x10e3/uL (140-360); RED BLOOD COUNT 4.44 x10e6/uL (3.6-5.1); RED CELL DISTRIBUTION WIDTH 12.7 % (11.7-14.4)
[2022-02-23 06:58] LABS: INR 0.95; PROTHROMBIN TIME 13.6 seconds (11.9-14.5)
[2022-02-23] MEDS ORDERED: LIDOCAINE 1% W/EPINEPHRINE 20 ML VIAL ONE (06:59)
[2022-02-23 07:06] LABS: ANION GAP 12.5 mmol/L (8-16); CALCIUM 9.2 mg/dL (8.4-10.2); CREATININE, SERUM 1.11 mg/dL (0.57-1.11); POTASSIUM 4.5 mmol/L (3.5-5.1)
[2022-02-23] MEDS: FLECAINIDE ACETATE 100 MG TAB PO SCH ×2 (07:15→16:44)
[2022-02-23] MEDS ORDERED: SODIUM CHLORIDE 0.9% 250ML 250 ML ONE (08:42)
[2022-02-23] MEDS: TRAMADOL HCL 50 MG TAB PO PRN (08:45)
[2022-02-23] MEDS: VILANTER INH SCH (08:48)
[2022-02-23] MEDS: [UNRECOGNIZED DRUG - OTHER] INH SCH (08:48)
[2022-02-23] MEDS: FLUTICASONE INH SCH (08:48)
[2022-02-23] MEDS: [UNRECOGNIZED DRUG - OTHER] PO SCH (08:49)
[2022-02-23] MEDS: HERB PO SCH (08:49)
[2022-02-23] MEDS: MV MN PO SCH (08:49)
[2022-02-23] MEDS: FOLIC ACID PO SCH (08:49)
[2022-02-23] MEDS: IRON PO SCH (08:49)
[2022-02-23] MEDS: IVABRADINE HCL 5 MG PO SCH (08:49)
[2022-02-23 11:07] LABS: CREATINE KINASE 64 IU/L (29-168)
[2022-02-23] MEDS ORDERED: MIDAZOLAM HCL 2 MG/2 ML VIAL ONE (13:06)
[2022-02-23] MEDS ORDERED: FENTANYL CITRATE/PF 100MCG/2 ML INJ ONE (13:06)
[2022-02-23] MEDS ORDERED: PROPOFOL IV EMULSION 10 MG/ML 20 ML VIAL ONE (13:50)
[2022-02-23] MEDS ORDERED: POVIDONE IODINE 0.05% 0.05 % ML PO ONE (13:50)
[2022-02-23] MEDS: ATORVASTATIN 40 MG TAB PO SCH (21:42)
[2022-02-23] MEDS: GABAPENTIN 300 MG CAP PO SCH (21:42)
[2022-02-23] MEDS: ESCITALOPRAM OXALATE 10 MG TAB PO SCH (21:42)
[2022-02-23] MEDS: IRBESARTAN 150 MG TAB PO SCH (21:42)
[2022-02-24 00:05] VITALS: BP 133/74
[2022-02-24] MEDS: ALBUTEROL/IPRATROPIUM 3 ML NEB NEB SCH ×3 (01:10→13:10)
[2022-02-24] MEDS: TRAMADOL HCL 50 MG TAB PO PRN (01:28)
[2022-02-24] MEDS ORDERED: GUAIFENESIN-DM 15 ML PO (05:25)
[2022-02-24] MEDS ORDERED: ZITHROMAX500 MG PO (05:25)
[2022-02-24] MEDS ORDERED: CEPHALEXIN500 MG PO (05:25)
[2022-02-24 05:44] VITALS: BP 121/76
[2022-02-24] MEDS: HYDROCORTISONE SOD SUCCINATE 100 MG VIAL IV SCH (05:44)
[2022-02-24 08:01] VITALS: BP 134/70
[2022-02-24 09:00] VITALS: BP 134/70
[2022-02-24] MEDS ORDERED: PREDNISONE 10 MG TAB PO SCH (09:00)
[2022-02-24] MEDS: [UNRECOGNIZED DRUG - OTHER] PO SCH (09:00)
[2022-02-24] MEDS: [UNRECOGNIZED DRUG - OTHER] INH SCH (09:00)
[2022-02-24] MEDS: FOLIC ACID PO SCH (09:00)
[2022-02-24] MEDS: VILANTER INH SCH (09:00)
[2022-02-24] MEDS: MV MN PO SCH (09:00)
[2022-02-24] MEDS: FLUTICASONE INH SCH (09:00)
[2022-02-24] MEDS: HERB PO SCH (09:00)
[2022-02-24] MEDS: IVABRADINE HCL 5 MG PO SCH ×2 (09:00→09:11)
[2022-02-24] MEDS: IRON PO SCH (09:00)
[2022-02-24] MEDS: FLECAINIDE ACETATE 100 MG TAB PO SCH (09:11)
[2022-02-24 10:54] LABS: BASOPHILS % 0.1 % (0.0-1.0); HEMATOCRIT 41.1 % (34.2-44.1); HEMOGLOBIN 12.7 g/dL (12.0-16.0); MEAN CORPUSCULAR HEMOGLOBIN 30.8 pg (28-32); MEAN CORPUSCULAR HGB CONC 30.9 g/dL (31-35); MEAN CORPUSCULAR VOLUME 99.8 fL (81-99); MONOCYTES # (AUTO) 1.5 (0.2-0.8); NEUTROPHILS # (AUTO) 17.9 (2.1-6.9); PLATELET COUNT 386 x10e3/uL (140-360); RED BLOOD COUNT 4.12 x10e6/uL (3.6-5.1); RED CELL DISTRIBUTION WIDTH 12.8 % (11.7-14.4)
[2022-02-24 11:16] LABS: ANION GAP 13.1 mmol/L (8-16); CALCIUM 8.2 mg/dL (8.4-10.2); CREATININE, SERUM 0.99 mg/dL (0.57-1.11); POTASSIUM 4.1 mmol/L (3.5-5.1)
[2022-02-24 11:36] VITALS: BP 146/77
[2022-02-25] MEDS ORDERED: AZITHROMYCIN 250 MG TAB PO SCH (09:00)
== END 2022-02-24 14:38 | disposition home or self-care (01) | DRG 190 ==
LOC: ER 09:00 → ERHOLD 10:31 → MED/SURG3 15:39
PROVIDERS: ADMIT Internal Medicine; ATTEND Internal Medicine
PROC: 0J9P0ZZ Drainage of Left Lower Leg Subcutaneous Tissue and Fascia, Open Approach (ICD-10-PCS; principal; 2022-02-23 07:30)
DX: J44.1 Chronic obstructive pulmonary disease with (acute) exacerbation (principal); J96.21 Acute and chronic respiratory failure with hypoxia; I69.354 Hemiplegia and hemiparesis following cerebral infarction affecting left non-dominant side; M05.10 Rheumatoid lung disease with rheumatoid arthritis of unspecified site; Z99.81 Dependence on supplemental oxygen; J20.9 Acute bronchitis, unspecified; J44.0 Chronic obstructive pulmonary disease with (acute) lower respiratory infection; I49.9 Cardiac arrhythmia, unspecified; S80.12XA Contusion of left lower leg, initial encounter; I12.9 Hypertensive chronic kidney disease with stage 1 through stage 4 chronic kidney disease, or unspecified chronic kidney disease; N18.30 Chronic kidney disease, stage 3 unspecified; K57.90 Diverticulosis of intestine, part unspecified, without perforation or abscess without bleeding; Z90.49 Acquired absence of other specified parts of digestive tract; Z87.891 Personal history of nicotine dependence; Z88.5 Allergy status to narcotic agent; Z88.1 Allergy status to other antibiotic agents; Z91.041 Radiographic dye allergy status; Z91.018 Allergy to other foods; Z20.822 Contact with and (suspected) exposure to COVID-19; Z87.01 Personal history of pneumonia (recurrent); Z86.16 Personal history of COVID-19; Z80.3 Family history of malignant neoplasm of breast; Z82.49 Family history of ischemic heart disease and other diseases of the circulatory system; Z84.89 Family history of other specified conditions; Z96.649 Presence of unspecified artificial hip joint
CPT/HCPCS: 36415; 36600; 71045; 80048; 80053; 81001; 82550; 82553; 82805; 83605; 83735; 83880; 84484; 85025; 85610; 85730; 87040; 87086; 93005; 94640; 94760; 94799; 99284; J0456; J0696; J1720; J2250; J2920; J2930; J3010; J7050; J7512; U0002

== ENCOUNTER 2022-04-09 09:11 | Emergency (ER) | payer MEDICARE, BC ==
[~2022-04-09] VITALS: Ht 170.2 cm; Wt 71.7 kg
[~2022-04-09 09:11] MED LIST changes: +GUAIFENESIN-DM 15 ML PO
[2022-04-09] MEDS ORDERED: METHYLPREDNISOLONE SOD SUCC 125 MG/2ML VIAL IV STA (09:24)
[2022-04-09] MEDS ORDERED: ALBUTEROL/IPRATROPIUM 3 ML NEB NEB ONE ×2 (09:30→10:30)
[2022-04-09 09:45] LABS: BASOPHILS # (AUTO) 0.1 (0.0-0.1); BASOPHILS % 0.9 % (0.0-1.0); EOSINOPHILS # (AUTO) 0.4 (0.0-0.4); EOSINOPHILS % 2.7 % (0.0-6.0); HEMATOCRIT 47.3 % (34.2-44.1); HEMOGLOBIN 14.8 g/dL (12.0-16.0); LYMPHOCYTES # (AUTO) 4.1 (1.0-3.2); LYMPHOCYTES % 25.3 % (18.0-39.1); MEAN CORPUSCULAR HEMOGLOBIN 30.8 pg (28-32); MEAN CORPUSCULAR HGB CONC 31.3 g/dL (31-35); MEAN CORPUSCULAR VOLUME 98.5 fL (81-99); MONOCYTES # (AUTO) 1.2 (0.2-0.8); MONOCYTES % 7.2 % (4.4-11.3); NEUTROPHILS # (AUTO) 10.2 (2.1-6.9); NEUTROPHILS % 63.4 % (38.7-80.0); PLATELET COUNT 496 x10e3/uL (140-360); RED CELL DISTRIBUTION WIDTH 13.2 % (11.7-14.4)
[2022-04-09 10:01] LABS: INR 1.35; PARTIAL THROMBOPLASTIN TIME 29.2 seconds (23.8-35.5); PROTHROMBIN TIME 17.8 seconds (11.9-14.5)
[2022-04-09 10:06] LABS: ALBUMIN 3.5 g/dL (3.5-5.0); ALBUMIN/GLOBULIN RATIO 1.1 (0.8-2.0); ANION GAP 14.7 mmol/L (8-16); CALCIUM 8.3 mg/dL (8.4-10.2); CREATININE, SERUM 1.08 mg/dL (0.57-1.11); MAGNESIUM 1.9 MG/DL (1.3-2.1); POTASSIUM 3.7 mmol/L (3.5-5.1)
[2022-04-09 10:16] LABS: CREATINE KINASE MB 1.9 ng/mL (0-5.0)
[2022-04-09] MEDS ORDERED: DOXYCYCLINE HY100 M3 PO (11:43)
[2022-04-09] MEDS ORDERED: AMOX TR-K CLV1 EAC2 PO (11:43)
[2022-04-09] MEDS ORDERED: PREDNISONE20 MG PO (11:43)
[2022-04-09 11:55] VITALS: BP 106/77
== END 2022-04-09 12:00 | disposition home or self-care (01) ==
LOC: ER 09:21
DX: J44.0 Chronic obstructive pulmonary disease with (acute) lower respiratory infection (principal); I10 Essential (primary) hypertension; M06.9 Rheumatoid arthritis, unspecified; Z20.822 Contact with and (suspected) exposure to COVID-19; Z88.6 Allergy status to analgesic agent; Z88.1 Allergy status to other antibiotic agents; Z91.041 Radiographic dye allergy status; Z91.018 Allergy to other foods; Z79.899 Other long term (current) drug therapy; Z86.73 Personal history of transient ischemic attack (TIA), and cerebral infarction without residual deficits
CPT/HCPCS: 36415; 71045; 80053; 82550; 82553; 83735; 83880; 84484; 85025; 85610; 85730; 87040; 93005; 94640; 94799; 99284; J2930; U0002

== ENCOUNTER → 2022-07-05 | Outpatient (CLI) | payer MEDICARE, BC ==
[~2022-07-05] MED LIST changes: +AMOX TR-K CLV1 EAC2 PO; +DOXYCYCLINE HY100 M3 PO
== END ==
LOC: CT 09:37
PROVIDERS: ATTEND Internal Medicine Infectious Disease
DX: J06.9 Acute upper respiratory infection, unspecified (principal)
CPT/HCPCS: 71250

== ENCOUNTER 2023-01-14 10:42 | Emergency (ER) | payer MEDICARE, BC ==
[~2023-01-14] VITALS: Ht 170.2 cm; Wt 74.4 kg
[2023-01-14] MEDS ORDERED: PREDNISONE20 MG PO (11:16)
[2023-01-14] MEDS ORDERED: CEFDINIR300 MG PO (11:16)
[2023-01-14] MEDS ORDERED: GUAIFENESIN-DM 15 ML PO (11:16)
== END 2023-01-14 11:51 | disposition home or self-care (01) ==
LOC: FSED 10:50
DX: R06.02 Shortness of breath (principal); J40 Bronchitis, not specified as acute or chronic; J04.0 Acute laryngitis; R09.81 Nasal congestion; I10 Essential (primary) hypertension; J44.9 Chronic obstructive pulmonary disease, unspecified; M06.9 Rheumatoid arthritis, unspecified; Z86.73 Personal history of transient ischemic attack (TIA), and cerebral infarction without residual deficits
CPT/HCPCS: 71046; 83518; 87400; 99283

== ENCOUNTER → 2023-04-11 | Outpatient (CLI) | payer MEDICARE, BC ==
[~2023-04-11] MED LIST changes: +CEFDINIR300 MG PO
== END ==
LOC: CT 07:12
PROVIDERS: ATTEND Internal Medicine
DX: R91.1 Solitary pulmonary nodule (principal); R91.8 Other nonspecific abnormal finding of lung field
CPT/HCPCS: 71250

== ENCOUNTER 2025-05-26 10:47 | Emergency (ER) | payer MEDICARE, BC ==
[~2025-05-26] VITALS: Ht 170.2 cm; Wt 68.9 kg
[~2025-05-26 10:47] MED LIST changes: +ACETAMINOPHEN325 M1 PO; +AUGMENTIN 500-1 EACH PO; +FUROSEMIDE20 MG PO; +Folic Acid PO; +GABAPENTIN100 MG PO; +K DUR10 MEQ PO; +PREDNISONE5 MG PO
[2025-05-26 15:04] VITALS: PULSE 71; RESP 18; TEMP 97.3; O2SAT 97
== END 2025-05-26 15:07 | disposition home or self-care (01) ==
LOC: FSED 11:07
DX: S32.10XA Unspecified fracture of sacrum, initial encounter for closed fracture (principal); M51.379 Other intervertebral disc degeneration, lumbosacral region without mention of lumbar back pain or lower extremity pain; M25.551 Pain in right hip; W18.39XA Other fall on same level, initial encounter; Y92.89 Other specified places as the place of occurrence of the external cause; I10 Essential (primary) hypertension; J45.909 Unspecified asthma, uncomplicated; F32.A Depression, unspecified; Z86.73 Personal history of transient ischemic attack (TIA), and cerebral infarction without residual deficits; Z86.718 Personal history of other venous thrombosis and embolism
CPT/HCPCS: 72192; 99284